=== PATIENT | male | born 1945 | race Caucasian/White ===

== ENCOUNTER 2018-08-16 00:44 | Outpatient (CLI) | payer MEDICARE, BC, SELFPAY ==
[2018-08-16 15:19] LABS: Abs Immature Grans 0.01 k/cumm (0.0-0.09); Absolute Basophil Count 0.04 k/cumm (0.0-0.2); Absolute Eosinophil Count 0.21 k/cumm (0.0-0.7); Absolute Lymphocyte Count 2.71 k/cumm (1.2-3.4); Absolute Monocyte Count 0.72 k/cumm (0.11-0.7); Absolute Neutrophil Count 6.07 k/cumm (1.2-6.7); Basophils % 0.4; Eosinophils % 2.2; HCT 35.8 % (40.0-50.0); HGB 12.2 g/dL (13.5-17.5); Immature Grans % 0.1; Lymphocytes % 27.8; Mean Corp. HGB Concentration 34.1 g/dL (32.0-36.0); Mean Corpuscular Hemoglobin 31.2 pg (27.0-33.0); Mean Corpuscular Volume 91.6 fL (80-95); Mean Platelet Volume 8.7 fL (8.0-11.0); Monocytes % 7.4; Neutrophils % 62.1; Platelet Count 292 x1000/uL (130-400); RBC 3.91 m/cumm (4.50-6.00); RBC Distribution Width 14.6 % (11.8-14.1); White Blood Cell Count 9.76 k/cumm (4.4-10.8)
[2018-08-16 15:27] LABS: CREATININE 1.17 mg/dL (0.70-1.30)
[2018-08-16] MEDS: Omnipaque 350 MG/ML 100 ML BTL IJ (16:25)
--- NOTE | 2018-08-16 16:26 | DI.CT_ITS ---
SYMPTOM/DIAGNOSIS: HEMOPTYSIS, R04.[address]: The study was carried out with an intravenous administration of 70cc's of Omnipaque 350. There are small regions of atelectasis or scarring involving the lung bases. There is no evidence of a localized infiltrate or mass. There is no pleural effusion. The heart is not enlarged. There is no evidence of an aortic aneurysm. There is no evidence of pulmonary embolic disease. No acute bony abnormality is identified. SUMMARY: No evidence of pulmonary emboli. There are regions of apparent bibasilar scarring or atelectasis. No definite mass is seen.
== END 2018-08-16 01:04 ==
PROVIDERS: PCP Emergency Medicine; Visit Provider Emergency Medicine
DX: F32.9 Major depressive disorder, single episode, unspecified (principal); D72.829 Elevated white blood cell count, unspecified; R04.2 Hemoptysis; J98.4 Other disorders of lung
CPT/HCPCS: 36415; 71260; 82565; 85025; J3490

== ENCOUNTER 2019-12-04 09:51 | Emergency (ER) | payer MEDICARE, BC, SELFPAY ==
[2019-12-04 09:55] VITALS: BP 153/52; PULSE 81; RESP 16; TEMP 36.7; O2SAT 97
--- NOTE | 2019-12-04 10:04 | W.ED.GENAD ---
Discharge Plan Disposition Patient Disposition: HOME Condition: Good Discharge Details Chief Complaint: Orthopedic Clinical Impression: Sprain of right shoulder, Fall Primary Care Provider: Demetris Multani ED Provider: Mathew Cruz Home Meds and New Rx's Prescriptions: New lidocaine [Lidoderm] 1 PATCH patch 1 patch Topical Q24H Qty: 4 RF: 0 No Action fluticasone propion-salmeterol [Advair Diskus] 1 EACH blister with device 1 puff Inhalation BID Qty: 2 RF: 12 sertraline 50 mg tablet 50 mg PO DAILY Qty: 90 RF: 3 clopidogrel 75 mg tablet 75 mg PO DAILY Qty: 90 RF: 3 atorvastatin 40 mg tablet 40 mg PO DAILY Qty: 90 RF: 3 pantoprazole 40 mg tablet,delayed release (DR/EC) 40 mg PO DAILY Qty: 90 RF: 2 aspirin [Aspir-81] 81 MG tablet,delayed release (DR/EC) 2 tab PO DAILY RF: 0 Discharge Instructions Instructions: Shoulder Sprain (ED) Additional Instructions: At this time there is no evidence of fracture in your shoulder or bleed in your head or fracture in your spine. I do suspect that you have notably irritated your right rotator cuff and caused some mild bursitis as well. Often these heal well with rest. Please use the Lidoderm patches as directed, if your insurance does not cover them, you can get [id number] Lidoderm patches for slightly lower concentration but very similar efficacy. You can take 500 to 1000 mg of Tylenol every 6 hours as well for the pain. Please use the sling for support, however it is imperative that you move your arm in all directions 5-6 times per day while using the sling to help prevent frozen shoulder syndrome. Please follow-up closely with your primary care provider for reassessment. If your symptoms do not improve in the next 4 to 6 weeks you may require follow-up with an funeral pre arrangement specialist. If you notice any worsening of your symptoms, or any new symptoms such as vomiting, diarrhea, fever, chills, shortness of breath, chest pain, numbness, weakness, or fainting , please return immediately to the emergency department for reevaluation. Please follow up with your primary care provider as soon as possible for reassessment and reevaluation. As always, it was a pleasure participating in your medical care today. Referrals: Demetris Multani, DO [Primary Care Provider] - Medical Decision Making This is a pleasant 74-year-old male with a past medical history of CVA in the past currently on aspirin and Plavix who presents today for right shoulder pain after fall. Last night he fell slipped and hit his right shoulder. He has had pain since then, he has not taken anything to help relieve the pain. He denies any radiation to his chest arm neck or head. He states that he may have hit his head, but denies any loss of consciousness. He denies any focal numbness tingling or weakness. He states that the slip was mechanical. He did not pass out. Exam demonstrates reproducible tenderness over the right shoulder at the proximal humerus. No significant pain over the AC joint. Pain is notably present with all movements in particular flexion, internal and external rotation. He has no midline cervical thoracic pain, no signs of trauma to the head. Due to the patient's age, and his blood thinner use we will get a CT scan of the head neck, additionally we will get an x-ray of the right shoulder. Will place Lidoderm patch and give Tylenol. Suspect right shoulder bursitis, sprain, less likely fracture. 11:12 AM X-ray results have returned from Dr. Wren. Per Dr. Wren there is no evidence of acute process for the head neck or right shoulder. There is degeneration of the joints in the shoulder, as well as degenerations of the cervical spine. No other significant abnormality. Patient is feeling better at this time. I do feel he is bursitis in his right shoulder secondary to the trauma, in conjunction with mild rotator cuff injury. We will give him a shoulder sling, however I had a long discussion with him about my apprehension about this and the importance of continued movement to prevent adhesive capsulitis. We will recommend continued Tylenol for pain control as well as Lidoderm patches. I discussed with him that if symptoms do not improve over the next few weeks with conservative management he may require follow-up with orthopedics. Recommend close follow-up with his PCP prior to this for reassessment. Discussed red flags for which to return. I have extensively reviewed the treatment plan and discharge instructions with the patient. I have addressed all patient concerns at this time. The patient was made aware of what symptoms to monitor for that would warrant a return to the emergency department. Discussed the plan with the patient, they demonstrate verbal understanding and agreement with our assessment and plan at this time. HPI General Date/Time Provider Initiated Documentation: 12/04/19 10:01. HPI Narrative: This is a very pleasant 74-year-old male with a past medical history of previous CVA, GERD, COPD, currently on aspirin and Plavix who presents today for evaluation of fall. Last night he was out walking, slipped on the ice, fell and landed on his right shoulder. He has had pain since then. He has not taken anything to help with the pain. He states he may have hit his head during the fall, but denies any loss of consciousness. He denies any current headache or neck pain. He denies any numbness tingling or weakness. Pain in his right shoulder is his only current complaint, pain is made worse with movement in all directions. No other complaints, no radiation down the arm. No chest pain or shortness of breath. Related Data Home Medications Medication Instructions Recorded Confirmed aspirin [Aspir-81] 2 tab PO DAILY 12/06/15 12/04/19 fluticasone propion-salmeterol 1 puff INHALATION BID #2 disk 03/04/18 12/04/19 [Advair 250/50 Diskus] sertraline 50 mg tablet 50 mg PO DAILY #90 tab-cap 03/22/19 12/04/19 clopidogrel 75 mg tablet 75 mg PO DAILY #90 tab-cap 06/09/19 12/04/19 atorvastatin 40 mg tablet 40 mg PO DAILY #90 tab-cap 07/19/19 12/04/19 pantoprazole 40 mg tablet,delayed 40 mg PO DAILY #90 tab 09/11/19 12/04/19 release lidocaine [Lidoderm] 1 patch TOPICAL Q24H #4 patch 12/04/19 Previous Rx's Medication Instructions Recorded fluticasone propion-salmeterol 1 puff INHALATION BID #2 disk 03/04/18 [Advair 250/50 Diskus] sertraline 50 mg tablet 50 mg PO DAILY #90 tab-cap 03/22/19 clopidogrel 75 mg tablet 75 mg PO DAILY #90 tab-cap 06/09/19 atorvastatin 40 mg tablet 40 mg PO DAILY #90 tab-cap 07/19/19 pantoprazole 40 mg tablet,delayed 40 mg PO DAILY #90 tab 09/11/19 release lidocaine [Lidoderm] 1 patch TOPICAL Q24H #4 patch 12/04/19 Allergies Allergy/AdvReac Type Severity Reaction Status Date / Time cyclobenzaprine Allergy Mild SKIN RASH Verified 12/04/19 10:04 hydrocodone Allergy SKIN RASH Verified 12/04/19 10:04 Aocobhe-Qcz-Hnb Reductase AdvReac Mild Verified 12/04/19 10:04 Inhibitor doxycycline AdvReac FACIAL Verified 12/04/19 10:04 REDNESS meperidine AdvReac HANGOVER Verified 12/04/19 10:04 FEELING General Stated Complaint: Orthopedic GOOD: 3 Review of Systems All systems reviewed & are unremarkable except as noted in HPI and below PFSH Medical History (Updated 12/04/19 @ 11:14 by Mathew Cruz DO) Anxiety about health (Acute 02/27/15) CAD (coronary artery disease) Carotid stenosis, bilateral (Acute) 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 Idiopathic. Check CBC at 6 mo intervals Right inguinal hernia (Acute 02/20/14) Right rotator cuff tear (Acute 05/02/14) surgery Smoker Smoker (Acute) Tubular adenoma of colon (Acute 09/17/17) Vertebral artery stenosis (Acute) Surgical History (Updated 03/13/19 @ 11:46 by Alejandro Zhang) Appendectomy (~1954) Arthroplasty of knee LEFT Carotid endarterectomy 2016 Colonoscopy - MAC (09/17/17) DR. CHUCK JIMENEZ; TUBULAR ADENOMA History of back surgery (Acute 05/02/14) Oophrectomy, Right Family History Mother Personal history of malignant neoplasm Father Heart disease Sister Personal history of malignant neoplasm Brother Heart disease Grandfather No problems noted. Grandfather Acute ill-defined cerebrovascular disease Grandmother No problems noted. Grandmother No problems noted. Social History Smoking/Tobacco Use Status: Former Tobacco Use Alcohol Intake: former Drug use: Never Details: quit smoking 2019 Do you feel safe at home: Yes Do you feel safe in your relationship?: Yes Exam Narrative Exam Narrative: 1.Const: Well-nourished, Well-developed, appearing stated age 2.Eyes: PERRL, no conjunctival injection, and symmetrical lids. 3.ENT: Atraumatic external nose and ears. Moist MM. Neck: Symmetric, trachea midline, No thyromegaly. There is no evidence of raccoon eyes, lynch sign, CSF rhinorrhea, mastoid tenderness, cranial crepitus, hemotympanum, exophthalmos, or hyphema. Patient demonstrates intact dentition with no signs of tooth avulsion or fracture, no signs of jaw deformity, no evidence of a LeFort's fracture, with an intact palate, nose and orbital region. There is no evidence of a nasal septal hematoma. No proptosis. Jaw closes symmetrically. Airway is clear. 4.CVS: +S1/S2, No murmurs or gallops. Peripheral pulses 2+ and equal in all extremities. Brisk capillary refill in all extremities. 5.RESP: Unlabored respiratory effort. Clear to auscultation bilaterally. No wheezes rales or rhonchi 6.GI: Soft, Nontender/Nondistended, No hepatosplenomegaly. No guarding or rebound. 7.MSK: Normocephalic, Extremities w/o deformity. No cyanosis or clubbing. Patient's right shoulder demonstrates mild reproducible tenderness over the proximal humerus, no significant tenderness over the AC joint. Pain is made worse particularly with internal and external rotation as well as flexion extension and abduction. Normal movement at the elbow and wrist, no weakness, neurovascular exam normal. No evidence of deficits or significant abnormality. Strength is intact, but slightly limited secondary to pain. No midline cervical thoracic or lumbar spine tenderness. 8.Skin: Warm, Dry. No rashes or lesions. 9.Neuro: protection officer II-XII grossly intact. Sensation grossly intact, no focal neurologic deficits. 10.Psych: (AAO) x3. Appropriate mood and affect Course Vital Signs Vital signs: Vital Signs Temperature 36.7 C 12/04/19 09:55 Pulse 81 12/04/19 09:55 Respiratory Rate 16 12/04/19 09:55 Blood Pressure 153/52 H 02/24/20 09:55 Pulse Oximetry 97 02/24/20 09:55 Temperature 36.7 C 12/04/19 09:55 Temperature Source Skin 12/04/19 09:55 Pulse 81 12/04/19 09:55 Respiratory Rate 16 12/04/19 09:55 Blood Pressure 153/52 H 12/04/19 09:55 Blood Pressure Position Sitting 12/04/19 09:55 Pulse Oximetry 97 12/04/19 09:55 Oxygen Delivery Method Room Air 12/04/19 09:55 Oxygen Flow Rate 0 12/04/19 09:55 Pain Level 9 12/04/19 09:55
[2019-12-04] MEDS: Acetaminophen 500 MG TAB 1000 MG PO (10:31)
[2019-12-04] MEDS: Lidocaine 5% Patch 1 PATCH TP (10:31)
--- NOTE | 2019-12-04 10:50 | DI.CT_ITS ---
EXAM: CT HEAD CERVICAL SPINE WO CLINICAL HISTORY: fell, hit head, on asa and plavix TECHNIQUE: CT examination of the cervical spine was performed utilizing multi slice acquisition and multiplanar reconstruction. COMPARISON: HEAD WITHOUT CONTRAST from 07/24/2016 FINDINGS: There is a mild torticollis to the left. There are severe degenerative changes of the cervical spin e, no evidence of acute fracture or dislocation. Unremarkable appearance of tracheal laryngeal struc tures as visualized. Clear lung apices noted. No cervical mass or adenopathy. Noncontrast cranial CT was performed. There is moderate generalized cerebral atrophy. No evidence o f acute intracranial hemorrhage, mass effect, or midline shift. Mild patchy areas of decreased atten uation noted in periventricular white matter consistent with microvascular ischemic change. The orbi duke and temporal bone structures appear intact. Mastoid air cells and paranasal sinuses are well aer ated as visualized. IMPRESSION: No evidence of acute intracranial injury. No evidence of acute cervical spine fracture or dislocation.
--- NOTE | 2019-12-04 11:00 | DI.RAD_ITS ---
EXAM: XR SHOULDER RT COMPLETE 2+V CLINICAL HISTORY: fell, right shoulder pain over prox hum. TECHNIQUE: COMPARISON: RIGHT SHOULDER COMPLETE from 04/03/2014 FINDINGS: Five views were obtained. There are mild degenerative changes of the acromioclavicular and glenohume ral joints. There is no evidence of acute fracture or dislocation. IMPRESSION:
[2019-12-04 11:25] VITALS: BP 138/67; PULSE 69; RESP 18; TEMP 36.6; O2SAT 98
[2019-12-04 11:28] VITALS: BP 153/52; PULSE 81; RESP 18; TEMP 36.6; O2SAT 98
== END 2019-12-04 11:29 | disposition home or self-care (01) ==
PROVIDERS: Emergency Provider Student in an Organized Health Care Education/Training Program; PCP Emergency Medicine
DX: S43.491A Other sprain of right shoulder joint, initial encounter (principal); S09.90XA Unspecified injury of head, initial encounter; W00.0XXA Fall on same level due to ice and snow, initial encounter; Z79.02 Long term (current) use of antithrombotics/antiplatelets; J44.9 Chronic obstructive pulmonary disease, unspecified; Z87.891 Personal history of nicotine dependence
CPT/HCPCS: 99284; 70450; 72125; 73030; L3650

== ENCOUNTER 2020-02-23 12:05 | Emergency (ER) | payer MEDICARE, BC, SELFPAY ==
[2020-02-23 12:11] VITALS: BP 137/86; PULSE 93; TEMP 36.8; O2SAT 98
--- NOTE | 2020-02-23 12:30 | DI.RAD_ITS ---
EXAM: XR CERVICAL SP MORIN TRAUMA 2-3V CLINICAL HISTORY: neck pain TECHNIQUE: COMPARISON: CR CERV SP.WITH OBL OR FLEX/EXT from 06/15/2012 FINDINGS: Five views were obtained. C7 is not ideally visualized but appears intact as seen on AP and swimmer' s views. There is moderate hypertrophic degenerative change involving the facet joints and endplates of the lower cervical spine. Disc space narrowing is noted at C3-4 and at C5-6. No evidence of acu te fracture. IMPRESSION:
--- NOTE | 2020-02-23 12:30 | DI.RAD_ITS ---
EXAM: XR SHOULDER RT COMPLETE 2+V CLINICAL HISTORY: Shoulder pain fall 2 months ago TECHNIQUE: COMPARISON: CR XR SHOULDER RT COMPLETE 2+V from 12/04/2019 FINDINGS: Five views were obtained. There are mild degenerative changes at the acromioclavicular and glenohume ral joints. On the axillary view, there is a lucency projected over the coracoid which appears to re present a mildly displaced fracture. Please correlate clinically. No additional fracture seen. IMPRESSION:
--- NOTE | 2020-02-23 12:45 | W.ED.GENAD ---
Discharge Plan Disposition Patient Disposition: HOME Condition: Stable Discharge Details Chief Complaint: Orthopedic Clinical Impression: Muscle spasm of shoulder region, Chronic pain in right shoulder Primary Care Provider: Demetris Multani ED Provider: Racheal Stewart Home Meds and New Rx's Prescriptions: New methocarbamol 500 mg tablet 500 mg PO TID PRN (Reason: spasm) 3 Days Qty: 12 RF: 0 lidocaine 5 % adhesive patch,medicated 1 patch TP DAILY PRN (Reason: spasm) 2 Days Qty: 2 RF: 0 No Action sertraline 50 mg tablet 50 mg PO DAILY Qty: 90 RF: 3 clopidogrel 75 mg tablet 75 mg PO DAILY Qty: 90 RF: 3 atorvastatin 40 mg tablet 40 mg PO DAILY Qty: 90 RF: 3 pantoprazole 40 mg tablet,delayed release (DR/EC) 40 mg PO DAILY Qty: 90 RF: 2 aspirin [Aspir-81] 81 MG tablet,delayed release (DR/EC) 2 tab PO DAILY RF: 0 budesonide-formoterol [Symbicort] 160-4.5 mcg/actuation HFA aerosol inhaler 2 puff IH BID PRNRF: 0 Discharge Instructions Instructions: Shoulder Pain (ED) Additional Instructions: Follow up with primary care provider in 3-5 days. Return to ED sooner if any worsening or concerns. Increase oral fluids. Take medications as prescribed. Rest ice compression elevation. You may take Tylenol as needed for pain. Follow-up with orthopedics for possible coracoid process fracture Referrals: Demetris Multani, [Primary Care Provider] - Neeraj Saxena MD [ [facility] STAFF PHYSICIAN] - Medical Decision Making 74-year-old male presents with chronic right shoulder pain associated with lateral neck tenderness after a fall in November. He has decreased lateral abduction tenderness with external rotation. No recent injuries. He states that the pain keeps him up at night. He is rating it moderate in severity. Describes as dull pain. Pain radiates up into his neck. He states he is unable to get in with his primary care provider and no longer is going to physical therapy due to the coronavirus. He is also asked requesting Adelina testing at this time. He denies any fever, cough or recent travel At this time appears to be chronic pain associated with musculoskeletal spasm. It is chronic in nature from a fall in November. Patient is allergic to Flexeril so we will not give that. He reportedly told social staff worker that the only thing that works for his pain is Percocet. Lidocaine patch transdermal ordered. Further injuries. Questionable coracoid process fracture on x-ray patient is tender with palpation to the anterior medial humeral head. We will give follow-up info to orthopedics. Patient given lidocaine patch prescription and methocarbamol tablet prescription. Patient discharged with home care, discharged to the COVID testing tent as he has an appointment at [facility], patient requesting Covid testing. Differential diagnosis includes possible coracoid process fracture, shoulder sprain, degenerative changes, muscle spasms. HPI General Mode of arrival: ambulatory. Date/Time Provider Initiated Documentation: 02/23/20 12:07. Limitations to Documentation: no limitations. Information obtained by: patient. History of Present Illness Patient neck. HPI Narrative: 74-year-old male presents with chronic right shoulder pain associated with lateral neck tenderness after a fall in November. He has decreased lateral abduction tenderness with external rotation. No recent injuries. He states that the pain keeps him up at night. He is rating it moderate in severity. Describes as dull pain. Pain radiates up into his neck. He states he is unable to get in with his primary care provider and no longer is going to physical therapy due to the coronavirus. He is also asked requesting Adelina testing at this time. He denies any fever, cough or recent travel. Related Data Home Medications Medication Instructions Recorded Confirmed aspirin [Aspir-81] 2 tab PO DAILY 12/06/15 02/23/20 sertraline 50 mg tablet 50 mg PO DAILY #90 tab-cap 03/22/19 02/23/20 clopidogrel 75 mg tablet 75 mg PO DAILY #90 tab-cap 06/09/19 02/23/20 atorvastatin 40 mg tablet 40 mg PO DAILY #90 tab-cap 07/19/19 02/23/20 pantoprazole 40 mg tablet,delayed 40 mg PO DAILY #90 tab 09/11/19 02/23/20 release budesonide-formoterol [Symbicort] 2 puff IH BID PRN 02/23/20 02/23/20 lidocaine 1 patch TP DAILY PRN 2 Days #2 each 02/23/20 methocarbamol 500 mg PO TID PRN 3 Days #12 tab 02/23/20 Previous Rx's Medication Instructions Recorded sertraline 50 mg tablet 50 mg PO DAILY #90 tab-cap 03/22/19 clopidogrel 75 mg tablet 75 mg PO DAILY #90 tab-cap 06/09/19 atorvastatin 40 mg tablet 40 mg PO DAILY #90 tab-cap 07/19/19 pantoprazole 40 mg tablet,delayed 40 mg PO DAILY #90 tab 09/11/19 release lidocaine 1 patch TP DAILY PRN 2 Days #2 each 02/23/20 methocarbamol 500 mg PO TID PRN 3 Days #12 tab 02/23/20 Allergies Allergy/AdvReac Type Severity Reaction Status Date / Time cyclobenzaprine Allergy Mild SKIN RASH Verified 02/23/20 12:19 hydrocodone Allergy SKIN RASH Verified 02/23/20 12:19 Ptovdui-Vyq-Bif Reductase AdvReac Mild Verified 02/23/20 12:19 Inhibitor doxycycline AdvReac FACIAL Verified 02/23/20 12:19 REDNESS meperidine AdvReac HANGOVER Verified 02/23/20 12:19 FEELING General Stated Complaint: Orthopedic GOOD: 4 Review of Systems Narrative: Constitutional: Negative for weight loss, alert and oriented, well groomed, normal body habitus, appears comfortable. HEENT: Denies trauma, headaches, blurry vision, nasal discharge, sore throat, trouble swallowing. Chest: Denies chest pain, palpitations, irregular rhythm, hypertension. Respiratory: Denies Shortness of breath, cough, hemoptysis. GI: Denies abdominal pain, nausea, vomiting, diarrhea, constipation. : Denies dysuria, hematuria, flank pain, rectal bleeding. Musculoskeletal: Right shoulder pain and associated neck pain after a fall in November. Neuro: Denies dizziness, blurry vision, weakness, syncope, headache or facial numbness. Hematologic: Denies easy bruising, intolerance to heat or cold, hair loss. 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 Idiopathic. Check CBC at 6 mo intervals Right inguinal hernia (Acute 02/20/14) Right rotator cuff tear (Acute 05/02/14) surgery Smoker Smoker (Acute) Tubular adenoma of colon (Acute 09/17/17) Vertebral artery stenosis (Acute) Surgical History Appendectomy (~1954) Arthroplasty of knee LEFT Carotid endarterectomy 2016 Colonoscopy - MAC (09/17/17) DR. CHUCK JIMENEZ; TUBULAR ADENOMA History of back surgery (Acute 05/02/14) Oophrectomy, Right Family History Mother Personal history of malignant neoplasm Father Heart disease Sister Personal history of malignant neoplasm Brother Heart disease Grandfather No problems noted. Grandfather Acute ill-defined cerebrovascular disease Grandmother No problems noted. Grandmother No problems noted. Social History Smoking/Tobacco Use Status: Former Tobacco Use Alcohol Intake: former Drug use: Never Details: quit smoking 2018. Chews tobacco occasionally. Do you feel safe at home: Yes Do you feel safe in your relationship?: Yes Exam Narrative Exam Narrative: Constitutional: Alert and oriented x3. Appears stated age. Normal body habitus. Head: Normocephalic, no trauma. Eyes: Pupils PERRLA, Red reflex noted, EOM's intact. Eyelids symmetrical without lesions, discharge, or swelling. ENT: Bilateral TM's WNL, External ear normal to inspection, no mastoid TTP, swelling, or erythema, Nasal turbinates WNL, no nasal discharge. Normal dentition, Posterior pharynx WNL, no exudate. Chest: RRR, Normal S1, S2, distal pulses intact. Resp: Lungs clear to auscultation bilaterally, no wheezes, rales, or rhonchi. Musculoskeletal: Normal gait, 5/5 strength to all four extremities. Paraspinous tenderness noted to C-spine radiating up into her occipital scalp. Pain with external and internal rotation increased pain with abduction. Is able to lift arm approximately 85 degrees. No pinpoint tenderness or crepitus noted. Elbow is within normal limits. Distal radial pulses intact cap refill less than 3 seconds. Skin: No suspicious rashes or lesions. Capillary refill less than 2 sec. Neurologic: Cranial nerves II-XII intact. Alert and oriented x 3. DTR's intact. Hematologic/Lymphatic: No ecchymosis, no lymphadenopathy. Course Vital Signs Vital signs: Vital Signs Temperature 36.8 C 02/23/20 12:11 Pulse 93 H 02/23/20 12:11 Blood Pressure 137/86 02/23/20 12:11 Pulse Oximetry 98 02/23/20 12:11 Temperature 36.8 C 02/23/20 12:11 Temperature Source Skin 02/23/20 12:11 Pulse 93 H 02/23/20 12:11 Respiratory Effort Non-Labored 02/23/20 12:19 Blood Pressure 137/86 02/23/20 12:11 Blood Pressure Position Sitting 02/23/20 12:11 Pulse Oximetry 98 02/23/20 12:11 Oxygen Delivery Method Room Air 02/23/20 12:11 Oxygen Flow Rate 0 02/23/20 12:11 Pain Level 5 02/23/20 12:11 Comment 02/23/20 12:11
[2020-02-23] MEDS: Lidocaine 5% Patch 1 PATCH TP (12:58)
[2020-02-23] MEDS: Methocarbamol 500 MG TAB PO (13:01)
== END 2020-02-23 13:47 | disposition home or self-care (01) ==
PROVIDERS: Emergency Provider Registered Nurse Emergency; PCP Emergency Medicine
DX: M62.838 Other muscle spasm (principal); M25.511 Pain in right shoulder; G89.29 Other chronic pain; W19.XXXA Unspecified fall, initial encounter; J44.9 Chronic obstructive pulmonary disease, unspecified; Z87.891 Personal history of nicotine dependence
CPT/HCPCS: 99284; U0003; 72040; 73030

== ENCOUNTER 2020-02-23 13:19 | Outpatient (CLI) | payer MEDICARE, BC, SELFPAY ==
[2020-02-24 14:34] LABS: COVID-19 RT-PCR Result NEGATIVE (Negative)
== END 2020-02-23 13:39 ==
PROVIDERS: PCP Emergency Medicine; Visit Provider Registered Nurse Emergency
DX: Z03.818 Encounter for observation for suspected exposure to other biological agents ruled out (principal)
CPT/HCPCS: 87449; U0003

== ENCOUNTER → 2020-02-28 10:31 | Outpatient (BNVA) | payer MEDICARE, BC, SELFPAY | PROVIDERS: PCP Emergency Medicine; Referring Provider Nurse Practitioner; Visit Provider Student in an Organized Health Care Education/Training Program | DX: S46.911A Strain of unspecified muscle, fascia and tendon at shoulder and upper arm level, right arm, initial encounter (principal); W17.89XA Other fall from one level to another, initial encounter; M75.21 Bicipital tendinitis, right shoulder; G54.2 Cervical root disorders, not elsewhere classified; M62.838 Other muscle spasm; M75.41 Impingement syndrome of right shoulder; J44.9 Chronic obstructive pulmonary disease, unspecified; Z87.891 Personal history of nicotine dependence | CPT/HCPCS: 99204; 99215 ==

== ENCOUNTER 2020-03-07 02:30 | Outpatient (CLI) | payer MEDICARE, BC, SELFPAY ==
--- NOTE | 2020-03-07 13:51 | DI.MRI_ITS ---
EXAM: MR UPPER JOINT RT WO CLINICAL HISTORY: Traumatic rotator cuff tear,IMPINGEMENT SYNDROME,TENDONITIS,M75.41,M75.21,. TECHNIQUE: Multiplanar multisequence MRI was performed. COMPARISON: Plain films dated 23 Feb 2020. FINDINGS: The exam is limited by patient motion. The patient was in pain and could not tolerate the entire exa mination. The sagittal sequences could not be performed. Bones: There is no fracture or contusion pattern. The acromioclavicular joint shows mild inferior spurring. There is spurring at the tip of the acromion.. There is a small joint effusion and fluid in the sub c oracoid bursa.. Rotator Cuff: There is a full thickness tear of the supraspinatus tendon with retraction nearly to the level of the AC joint. There is mild muscle atrophy. There is a full-thickness tear of the subscapularis tendon w ith retraction to the level of the glenoid. The infraspinatus and teres minor tendons are intact. Labrum and biceps anchor: The biceps tendon is normally located. The anchor is not well seen. The labrum is not well evaluated due to motion. IMPRESSION: Limited exam due to lack of sagittal sequences and patient motion. Full-thickness tears with retracti on of both supraspinatus and infraspinatus tendons.. DATA REPOSITORY:
== END 2020-03-07 02:50 ==
PROVIDERS: PCP Emergency Medicine; Visit Provider Student in an Organized Health Care Education/Training Program
DX: M75.101 Unspecified rotator cuff tear or rupture of right shoulder, not specified as traumatic (principal); M75.21 Bicipital tendinitis, right shoulder; M75.41 Impingement syndrome of right shoulder; M25.411 Effusion, right shoulder
CPT/HCPCS: 73221

== ENCOUNTER → 2020-03-13 13:49 | Outpatient (BNVA) | payer MEDICARE, BC, SELFPAY | PROVIDERS: PCP Emergency Medicine; Referring Provider Emergency Medicine; Visit Provider Student in an Organized Health Care Education/Training Program | DX: M75.41 Impingement syndrome of right shoulder (principal); G54.2 Cervical root disorders, not elsewhere classified; M75.21 Bicipital tendinitis, right shoulder; M75.101 Unspecified rotator cuff tear or rupture of right shoulder, not specified as traumatic; M75.51 Bursitis of right shoulder | CPT/HCPCS: 99214 ==

== ENCOUNTER 2020-05-03 09:33 | Emergency (ER) | payer MEDICARE, BC, SELFPAY ==
[2020-05-03 09:38] VITALS: BP 122/64; PULSE 50; RESP 16; TEMP 36.9; O2SAT 96
--- NOTE | 2020-05-03 09:45 | W.ED.GENAD ---
Discharge Plan Disposition Patient Disposition: HOME Condition: Stable Discharge Details Chief Complaint: Laceration Clinical Impression: Laceration of left thumb Primary Care Provider: Demetris Multani ED Provider: Racheal Stewart Home Meds and New Rx's Prescriptions: New cephalexin 500 mg tablet 500 mg PO BID 3 Days Qty: 6 RF: 0 Continued clopidogrel 75 mg tablet 75 mg PO DAILY Qty: 90 RF: 3 atorvastatin 40 mg tablet 40 mg PO DAILY Qty: 90 RF: 3 pantoprazole 40 mg tablet,delayed release (DR/EC) 40 mg PO DAILY Qty: 90 RF: 2 sertraline 50 mg tablet 50 mg PO DAILY Qty: 90 RF: 3 aspirin [Aspir-81] 81 MG tablet,delayed release (DR/EC) 2 tab PO DAILY RF: 0 budesonide-formoterol [Symbicort] 160-4.5 mcg/actuation HFA aerosol inhaler 2 puff IH BID PRNRF: 0 Discharge Instructions Instructions: Laceration (ED) Additional Instructions: Have sutures removed in 7 to 10 days. Return sooner for any signs of infection including redness, swelling, red streaks, drainage increased pain or any concerns. You may return here to have sutures removed. 6 sutures were placed. Allow wound to air dry at least 1 to 2 hours every day. No soaking may wash under running soap and water. Discharge Data Discharge Date/Time-TO BE ENTERED AT DEPARTURE: 05/03/20 11:58 Medical Decision Making 09 47: Imaging ordered to rule out fracture or foreign body, will do a left thumb digital block for anesthesia wound care ordered, patient is up-to-date on his tetanus shot. No complaints of pain at this time. EXAM: XR THUMB LT EXAM DATE/TIME: CLINICAL HISTORY: Laceration R/O fx, foreign body. TECHNIQUE: 2D digital imaging was performed. COMPARISON: None. FINDINGS: BONES: No acute fracture is present. No bony destructive lesion is seen. JOINTS: No dislocation present. SOFT TISSUE: The patient's thumb is wrapped in gauze. This obscures the underlying tissues. No radiopaque foreign bodies are seen. IMPRESSION: No evidence of acute fracture, dislocation, or subluxation. No radiopaque foreign body. Laceration repaired as noted in procedure note above. Patient tolerated well. Discussed home care and strict return instructions discussed including watching for signs of infection including increased redness, swelling drainage. Verbalized understanding. Discharged home with dressing in place, remained hemodynamically stable throughout stay. This text was generated using Fotofeedback dictation system, please disregard any oddities of phrase or misspellings. HPI General Mode of arrival: ambulatory. Date/Time Provider Initiated Documentation: 05/03/20 09:39. Limitations to Documentation: no limitations. Information obtained by: patient. HPI Narrative: 74-year-old male presents to the ED with a chief complaint of left thumb laceration which occurred just prior to arrival while cleaning a diesel fan. Patient is on Plavix. Bleeding is controlled upon arrival he does have full range of motion of his thumb. Last tetanus was 2017. He has no other injuries or complaints at this time. On initial exam there is 3 lacerations. Related Data Home Medications Medication Instructions Recorded Confirmed aspirin [Aspir-81] 2 tab PO DAILY 12/06/15 05/03/20 clopidogrel 75 mg tablet 75 mg PO DAILY #90 tab-cap 06/09/19 05/03/20 atorvastatin 40 mg tablet 40 mg PO DAILY #90 tab-cap 07/19/19 05/03/20 pantoprazole 40 mg tablet,delayed 40 mg PO DAILY #90 tab 09/11/19 05/03/20 release budesonide-formoterol [Symbicort] 2 puff IH BID PRN 02/23/20 05/03/20 sertraline 50 mg tablet 50 mg PO DAILY #90 tab-cap 03/25/20 05/03/20 cephalexin 500 mg PO BID 3 Days #6 tab 05/03/20 Previous Rx's Medication Instructions Recorded clopidogrel 75 mg tablet 75 mg PO DAILY #90 tab-cap 06/09/19 atorvastatin 40 mg tablet 40 mg PO DAILY #90 tab-cap 07/19/19 pantoprazole 40 mg tablet,delayed 40 mg PO DAILY #90 tab 09/11/19 release sertraline 50 mg tablet 50 mg PO DAILY #90 tab-cap 03/25/20 cephalexin 500 mg PO BID 3 Days #6 tab 05/03/20 Allergies Allergy/AdvReac Type Severity Reaction Status Date / Time cyclobenzaprine Allergy Mild SKIN RASH Verified 05/03/20 09:43 hydrocodone Allergy SKIN RASH Verified 05/03/20 09:43 Xkuhwae-Mah-Lbv Reductase AdvReac Mild Verified 05/03/20 09:43 Inhibitor doxycycline AdvReac FACIAL Verified 05/03/20 09:43 REDNESS meperidine AdvReac HANGOVER Verified 05/03/20 09:43 FEELING General Stated Complaint: Laceration GOOD: 4 Review of Systems All systems reviewed & are unremarkable except as noted in HPI and below Cardiovascular Cardiovascular: Reports system reviewed and no additional complaints, except as documented and Denies chest pain Respiratory Respiratory: Reports system reviewed and no additional complaints, except as documented, Denies chest congestion and Denies cough Integumentary/Breasts Skin/Breast: Reports wounds (Lacerations left thumb) [facility] Medical History Anxiety about health (Acute 02/27/15) CAD (coronary artery disease) Carotid stenosis, bilateral (Acute) 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 Idiopathic. Check CBC at 6 mo intervals Right inguinal hernia (Acute 02/20/14) Right rotator cuff tear (Acute 05/02/14) Smoker Smoker (Acute) Tubular adenoma of colon (Acute 09/17/17) Vertebral artery stenosis (Acute) Surgical History Appendectomy (~1954) Arthroplasty of knee LEFT Carotid endarterectomy 2016 Colonoscopy - MAC (09/17/17) DR. CHUCK JIMENEZ; TUBULAR ADENOMA History of back surgery (Acute 05/02/14) Oophrectomy, Right Social History Smoking/Tobacco Use Status: Former Tobacco Use Alcohol Intake: former Drug use: Never Substance use type: does not use Details: quit smoking 2019. Chews tobacco occasionally. Current gender identity: male Do you feel safe at home: Yes Do you feel safe in your relationship?: Yes Exam Const General: healthy appearing, comfortable, no acute distress and well developed Nutritional Appearance: average body habitus and well nourished Orientation: alert, awake and oriented x3 Resp Effort & Inspection: normal respiratory effort and able to speak in complete sentences Cardio Rate: regular rate Rhythm: regular rhythm Heart Sounds: S1 normal and S2 normal Extrem Hand/finger images: 1. Laceration #1: Superficial 0.5 cm laceration noted to the base of the nailbed 2. Laceration #2: Avulsion noted approximately 2 cm in length irregular borders 3. Laceration #3: Linear distal medial tip Course Vital Signs Vital signs: Vital Signs Temperature 36.9 C 05/03/20 09:38 Pulse 50 L 05/03/20 09:38 Respiratory Rate 16 05/03/20 09:38 Blood Pressure 122/64 05/03/20 09:38 Pulse Oximetry 96 05/03/20 09:38 Temperature 36.9 C 05/03/20 09:38 Pulse 50 L 05/03/20 09:38 Respiratory Rate 16 05/03/20 09:38 Respiratory Effort Non-Labored 05/03/20 09:42 Blood Pressure 122/64 05/03/20 09:38 Blood Pressure Position Sitting 05/03/20 09:38 Pulse Oximetry 96 05/03/20 09:38 Oxygen Delivery Method Room Air 05/03/20 09:38 Oxygen Flow Rate 0 05/03/20 09:38 Pain Level 0 05/03/20 09:38 Procedures Laceration Laceration 1: Site: hand (Thumb Distal tip) Side (If applicable): left Size (cm): 1 Description: linear Depth: simple, single layer Local Anesthetic: other anesthetic (Digital block) Pre-repair: wound explored, irrigated extensively and deep structures intact Skin layer closed with: nylon Size (cm): 5-0 Number of sutures: 3 Technique: simple, interrupted Laceration 2: Site: hand (thumb) Side (If applicable): left Size (cm): 2 Description: irregular (Avulsion) Depth: simple, single layer Pre-repair: wound explored and irrigated extensively Skin layer closed with: nylon Size (cm): 4-0 Number of sutures: 3 (Loose) Technique: simple, interrupted Nerve Block Nerve Block 1: Time out performed: Yes Local Anesthetic: Lidocaine 1% and Bupivicaine 0.5% Amount of anesthesia used (mL): 4 Side: left Nerve Blocks: digital (Base of thumb ring block) Patient Tolerated Procedure: well and no complications Complications: none
--- NOTE | 2020-05-03 10:04 | DI.RAD_ITS ---
EXAM: XR THUMB LT EXAM DATE/TIME: CLINICAL HISTORY: Laceration R/O fx, foreign body. TECHNIQUE: 2D digital imaging was performed. COMPARISON: None. FINDINGS: BONES: No acute fracture is present. No bony destructive lesion is seen. JOINTS: No dislocation present. SOFT TISSUE: The patient's thumb is wrapped in gauze. This obscures the underlying tissues. No radi opaque foreign bodies are seen. IMPRESSION: No evidence of acute fracture, dislocation, or subluxation. No radiopaque foreign body. DATA REPOSITORY: RADIATION DOSE DELIVERED:
[2020-05-03] MEDS: Lidocaine 1% Multi-Dose 50 ML VIAL IJ (10:05)
[2020-05-03] MEDS: Bupivacaine 0.5% Pres-Free 30 ML VIAL IJ (10:05)
[2020-05-03] MEDS: Povidone-Iodine Soln. 118 ML BTL (10:19)
[2020-05-03] MEDS: Cephalexin 500 MG CAP PO (11:51)
[2020-05-03] MEDS: Cephalexin 500 MG CAP, 4 CAPS/BTL PO (11:52)
== END 2020-05-03 11:58 | disposition home or self-care (01) ==
PROVIDERS: Emergency Provider Registered Nurse Emergency; PCP Emergency Medicine
DX: S61.112A Laceration without foreign body of left thumb with damage to nail, initial encounter (principal); W31.82XA Contact with other commercial machinery, initial encounter; Z79.02 Long term (current) use of antithrombotics/antiplatelets; Z79.82 Long term (current) use of aspirin; J44.9 Chronic obstructive pulmonary disease, unspecified; Z87.891 Personal history of nicotine dependence
CPT/HCPCS: 12002; 99283; 73140; 99281

== ENCOUNTER 2020-05-24 05:44 | Inpatient (IN) | payer MEDICARE, BC, SELFPAY ==
[2020-05-24] VITALS (29 sets, daily range): BP systolic 131–162; BP diastolic 61–80; PULSE 72–104; RESP 21–37; TEMP 36.7–37.5; O2SAT 92–96
--- NOTE | 2020-05-24 05:45 | RT.EKG_ITS ---
APPROVED REPORT Exam: Resting ECG Patient Location: E HR:80 bpm ECG Measurements Heart Rate 80 AXIS CO 159 P 78 QRSd 82 QRS 73 QT 319 T 21 QTc 376 Conclusion Sinus Rhythm at 80 Normal [place] Normal Interval NONSPECIFIC ST DEPRESSION LATERAL LEADS
--- NOTE | 2020-05-24 05:47 | ED.GENADUL_ITS ---
Discharge Plan Disposition Patient Disposition: [facility] INPATIENT Condition: Poor Discharge Details Chief Complaint: SOB Clinical Impression: CAP (community acquired pneumonia) Primary Care Provider: Demetris Multani ED Provider: Thony Heredias and New Rx's Prescriptions: No Action clopidogrel 75 mg tablet 75 mg PO DAILY Qty: 90 RF: 3 atorvastatin 40 mg tablet 40 mg PO DAILY Qty: 90 RF: 3 pantoprazole 40 mg tablet,delayed release (DR/EC) 40 mg PO DAILY Qty: 90 RF: 2 sertraline 50 mg tablet 50 mg PO DAILY Qty: 90 RF: 3 aspirin [Aspir-81] 81 MG tablet,delayed release (DR/EC) 2 tab PO DAILY RF: 0 budesonide-formoterol [Symbicort] 160-4.5 mcg/actuation HFA aerosol inhaler 2 puff IH BID PRNRF: 0 Medical Decision Making Patient presenting with complaint of shortness of breath with associated low- grade fever and cough. History of COPD but stopped smoking 1 year ago. No COVID exposure that patient is aware. Is definitely tachypneic but does not appear to be in distress. Decent air exchange and no wheezing appreciated. Some rhonchi at the right base. EKG is sinus with nonspecific minimal ST depression lateral leads. Nondiagnostic. Laboratory studies and chest x-ray ordered. 06:50 - Portable CXR right lower lobe infiltrate per my review. White count elevated. Chemistries are fine other than some hypomagnesemia. Liver and kidney function normal. Bicarb normal. Troponin and BNP normal. D-dimer elevated but would expect in infectious etiology. Blood cultures ordered as well as lactic acid. Fluids started. Ceftriaxone and azithromycin started. Hospitalist paged. Medical Records Medical records reviewed: Yes I reviewed the patient's medical records. Lab Data Lab results reviewed: Yes I reviewed the patient's lab results. HPI General Mode of arrival: wheelchair . Date/Time Provider Initiated Documentation: 05/24/20 05:45 . Limitations to Documentation: no limitations . Information obtained by: patient, RN notes reviewed and old records reviewed . HPI Narrative: Patient presents to ED with complaint of shortness of breath. More short of breath today than he usually is. Reports a low-grade fever. Also reports cough. No travel outside of [place]. No close contact with any known COVID individuals. Denies chest pain. Has right lower extremity swelling which is chronic and unchanged. Continues to make urine. Stopped smoking 1 year ago and does have history of COPD on inhalers. Related Data Home Medications Medication Instructions Recorded Confirmed aspirin [Aspir-81] 2 tab PO DAILY 12/06/15 05/24/20 clopidogrel 75 mg tablet 75 mg PO DAILY #90 tab-cap 06/09/19 05/24/20 atorvastatin 40 mg tablet 40 mg PO DAILY #90 tab-cap 07/19/19 05/24/20 pantoprazole 40 mg tablet,delayed 40 mg PO DAILY #90 tab 09/11/19 05/24/20 release budesonide-formoterol [Symbicort] 2 puff IH BID PRN 02/23/20 05/24/20 sertraline 50 mg tablet 50 mg PO DAILY #90 tab-cap 03/25/20 05/24/20 Previous Rx's Medication Instructions Recorded clopidogrel 75 mg tablet 75 mg PO DAILY #90 tab-cap 06/09/19 atorvastatin 40 mg tablet 40 mg PO DAILY #90 tab-cap 07/19/19 pantoprazole 40 mg tablet,delayed 40 mg PO DAILY #90 tab 09/11/19 release sertraline 50 mg tablet 50 mg PO DAILY #90 tab-cap 03/25/20 Allergies Allergy/AdvReac Type Severity Reaction Status Date / Time cyclobenzaprine Allergy Mild SKIN RASH Verified 05/24/20 05:58 hydrocodone Allergy SKIN RASH Verified 05/24/20 05:58 Xalzbgv-Myo-Vkx Reductase AdvReac Mild Verified 05/24/20 05:58 Inhibitor doxycycline AdvReac FACIAL Verified 05/24/20 05:58 REDNESS meperidine AdvReac HANGOVER Verified 05/24/20 05:58 FEELING General GOOD: 4 Review of Systems Narrative: 07/24 Review of Systems completed and is negative except as stated above in HPI (Systems reviewed: Const, Eyes, ENT, Resp, CV, GI, , MSK, Skin, Neuro) [facility] Medical History CAD (coronary artery disease) Carotid stenosis, bilateral (Chronic) Cerebellar ataxia (Chronic 08/10/12) COPD (chronic obstructive pulmonary disease) (Acute) Depressive disorder (Acute) GERD (gastroesophageal reflux disease) (Acute) History of CVA (cerebrovascular accident) 2013 Hyperlipidemia (Acute) Right inguinal hernia (Acute 02/20/14) Right rotator cuff tear (Acute 05/02/14) Tubular adenoma of colon (Acute 09/17/17) Vertebral artery stenosis (Acute) Surgical History Appendectomy (~1954) Arthroplasty of knee LEFT Carotid endarterectomy 2016 Colonoscopy - MAC (09/17/17) DR. CHUCK JIMENEZ; TUBULAR ADENOMA History of back surgery (Acute 05/02/14) Family History Mother Personal history of malignant neoplasm Father Heart disease Sister Personal history of malignant neoplasm Brother Heart disease Grandfather No problems noted. Grandfather Acute ill-defined cerebrovascular disease Grandmother No problems noted. Grandmother No problems noted. Social History Smoking/Tobacco Use Status: Former Tobacco Use Tobacco: How many years used: 50 Alcohol Intake: former Drug use: Never Substance use type: does not use Details: quit smoking 2019. Chews tobacco occasionally. Current gender identity: male Do you feel safe at home: Yes Do you feel safe in your relationship?: Yes Exam Narrative Exam Narrative: Vitals: Afebrile with a temp of 99.5. All vitals somewhat elevated including respiratory rate. Room air saturations good. Const: WDWN elderly male in NAD. HEENT: NC/AT. Normal facial exam. Eyes: Normal conjunctiva and sclera. Neck: Supple. Trachea midline. Lungs: Tachypneic but in no acute distress. Decent air exchange. No wheezing. Some rhonchi right base. Cor: RRR without murmur/gallop. Good radial pulses. GI: Soft. NT/ND. No guarding or rebound. Neuro: A+O x 3. Normal speech, mentation. Cranial nerves II - XII grossly intact. No gross motor or sensory deficit. Ext: Right lower extremity with 1-2+ pitting edema. No calf tenderness. Left lower extremity with trace to 1+ pitting edema. Skin: Warm and dry without rash.
--- NOTE | 2020-05-24 06:20 | DI.RAD_ITS ---
EXAM: XR PORTABLE CHEST AP CLINICAL HISTORY: SOB TECHNIQUE: 2D digital imaging was performed. COMPARISON: CR CHEST 2 VIEWS PA,LAT from 02/01/2018 FINDINGS: MEDIASTINUM: Normal. HEART: Normal. PULMONARY VASCULATURE: Normal. LUNGS: Bilateral basilar infiltrates right greater than left. PLEURAL SPACE: No pleural effusion or pneumothorax. BONE:Within normal limits for the patient's age. OTHER FINDINGS:Normal. IMPRESSION: Bilateral basilar infiltrates suspicious for pneumonia. DATA REPOSITORY: RADIATION DOSE DELIVERED:
[2020-05-24 06:27] LABS: Abs Immature Grans 0.06 10^3/uL (0.0-0.06); Absolute Basophil Count 0.05 10^3/uL (0.0-0.2); Absolute Neutrophil Count 13.99 10^3/uL (1.2-6.7); Basophils % 0.3; Eosinophils % 0.7; HGB 13.1 g/dL (13.5-17.5); Immature Grans % 0.4; Lymphocytes % 7.2; MCH 30.5 pg (27.0-33.0); MCHC 32.8 % (32.0-36.0); MPV 9.7 fL (8.0-11.0); Monocytes % 4.1; Neutrophils % 87.3; Nucleated RBC 0 %; Platelet Count 311 10^3/uL (130-400); RDW 14.6 % (11.8-14.1); RDW-SD 49.7 fL; WBC 16.03 10^3/uL (4.4-10.8)
[2020-05-24 06:29] LABS: Absolute Eosinophil Count 0.11 10^3/uL (0.0-0.7); Absolute Lymphocyte Count 1.15 10^3/uL (1.2-3.4); Absolute Monocyte Count 0.66 10^3/uL (0.1-0.8)
[2020-05-24 06:42] LABS: ALT 29 U/L (16-63); AST 28 U/L (15-37); Albumin 3.4 g/dL (3.4-5.0); Alkaline Phosphatase 72 U/L (46-116); BUN 16 mg/dL (7-18); Bilirubin, Total 0.4 mg/dL (0.2-1.0); CREATININE 1.24 mg/dL (0.70-1.30); Calcium 8.6 mg/dL (8.5-10.1); Chloride 101 mmol/L (98-107); Estimated GFR 56.68 (mL/min/1.73m2); Glucose 134 mg/dL (74-106); Magnesium 1.4 mg/dL (1.8-2.4); NT-proBNP 154 pg/mL (<300); Potassium 3.8 mmol/L (3.5-5.1); Sodium 136 mmol/L (136-145); Total Protein 7.2 g/dL (6.4-8.2)
[2020-05-24] MEDS: Normal Saline 1,000 ML 125 ML IV ×3 (06:45→22:05)
[2020-05-24 06:46] LABS: Troponin I < 0.05 ng/mL (<0.06)
[2020-05-24 06:48] LABS: D-Dimer 900 ng/mlFEU (<500)
--- NOTE | 2020-05-24 06:56 | DI.VRAD_ITS ---
PROCEDURE INFORMATION: Exam: XR Chest, 1 View Exam date and time: 05/24/2020 6:20 AM Age: 74 years old Clinical indication: Shortness of breath TECHNIQUE: Imaging protocol: XR of the chest Views: 1 view. COMPARISON: No relevant prior studies available. FINDINGS: Tubes, catheters and devices: Monitoring leads project over the chest. Lungs: Right basilar infiltrate suspicious for pneumonia. Minimal left basilar infiltrate difficult to exclude. No other consolidations. No overt pulmonary edema. Pleural space: Unremarkable. No pleural effusion. No pneumothorax. Heart/Mediastinum: Cardiac size not enlarged. Vasculature: Aortic atherosclerotic calcification. Bones/joints: Mild degenerative changes noted throughout the spine. Remote left lateral rib fracture. IMPRESSION: Right basilar infiltrate suspicious for pneumonia with minimal left basilar infiltrate not excluded. Dictated and Authenticated by: Jame Pickett MD. Ordering:SHAHEEN Bhandari MD
[2020-05-24 07:28] LABS: Lactate 1.1 mmol/L (0.6-1.4)
[2020-05-24] MEDS: Magnesium Oxide 400 MG TAB 800 MG PO (07:46)
[2020-05-24] MEDS: cefTRIAXone 1 GM/50 ML BAG IVPB ×2 (07:46→10:03)
[2020-05-24] MEDS: AZITHROMYCIN 500 MG in Normal Saline 250 ML 250 MG IVPB (08:17)
--- NOTE | 2020-05-24 08:43 | HPE_ITS ---
Date of service: 05/24/20 Time of Service: 08:43 Assessment and Plan Assessment and plan (1) CAP (community acquired pneumonia): Status: Acute Assessment and plan: IV parenteral antibiotics including ceftriaxone and increased dose of 2 g IV daily along with azithromycin 500 mg IV daily. I will give him a short course of IV corticosteroids to reduce his pulmonary inflammation. Encourage sputum mobilization with use of Mucinex and incentive spirometry and Acapella device. Use oxygen per nasal cannula as needed for any hypoxemia. Qualifiers: Laterality: right Lung location: lower lobe of lung Qualified Code(s): J18.9 - Pneumonia, unspecified organism (2) COPD (chronic obstructive pulmonary disease): Status: Acute Assessment and plan: Treatment as listed for kidney acquired pneumonia. We will also keep him on his home medications of Symbicort. He should consider the addition of Spiriva as part of his maintenance therapy. Qualifiers: COPD type: COPD with acute lower respiratory infection Qualified Code(s): J44.0 - Chronic obstructive pulmonary disease with (acute) lower respiratory infection (3) DVT prophylaxis: Status: Acute Assessment and plan: Enoxaparin subcutaneously while hospitalized (4) Copy of advanced directive obtained: Status: Acute Assessment and plan: Initially when I interviewed the patient this morning I asked him whether he had had a conversation with his primary care provider regarding advanced directives and I explicitly explained to the patient asking him what his wishes would be in the event that he had a cardiac or respiratory failure or arrest requiring resuscitation and intubation. Initially he was indecisive and did not recall having had a conversation with his PCP. However nursing staff is since obtain a copy of his C.O.L.S.T. form that was filled out in January and signed by the patient and his primary care provider Dr. Multani. At this time the patient is now indicated that he wants to abide by his C.O.L.S.T. form and be DNR/DNI. (5) Discharge planning issues: Status: Acute Assessment and plan: Patient will be discharged home when he can be safely change her from IV to oral antibiotics and is not showing any respiratory impairment with normal ADL performance. History of Present Illness History of Present Illness Chief Complaint: Dyspnea Narrative: 74-year-old male with a history of COPD not on home oxygen and not steroid- dependent presents with 1 day history of acute shortness of breath chills but no rigors and a nonproductive cough. Work-up in the emergency department showed that he was afebrile however he was tachypneic with respiratory rates in the 30s however he was not hypoxemic but he was found to have an elevated white cell count of 16,000 and a chest x-ray that demonstrated bilateral basilar infiltrates consistent with pneumonia. Dr. Thony Heredia, emergency room physician, obtain blood cultures and started the patient on Rocephin and azithromycin. Patient is now being admitted for treatment of community-acquired pneumonia and COPD. Patient denies any travel outside of [place] in the last 30 days and has had no known exposure to COVID-19 patients. A nasal swab for COVID-19 was obtained the emergency room and is pending at this time. Patient denies any symptoms of chest pain or palpitations or syncope. He has had no nausea or vomiting or diarrhea. He does have a remote history of stroke but denies any history of chronic heart conditions such as angina or myocardial infa rction or CHF. 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 CHUCK JIMENEZ; TUBULAR ADENOMA History of back surgery (Acute 05/02/14) Family History Mother Personal history of malignant neoplasm Father Heart disease Sister Personal history of malignant neoplasm Brother Heart disease Grandfather No problems noted. Grandfather Acute ill-defined cerebrovascular disease Grandmother No problems noted. Grandmother No problems noted. Social History Smoking/Tobacco Use Status: Former Tobacco Use Tobacco: How many years used: 50 Alcohol Intake: former Drug use: Never Substance use type: does not use Details: quit smoking 2019. Chews tobacco occasionally. Current gender identity: male Do you feel safe at home: Yes Do you feel safe in your relationship?: Yes Meds Home Medications and Allergies Home Medications Medication Instructions Recorded Confirmed Type aspirin [Aspir-81] 2 tab PO DAILY 12/06/15 05/24/20 History clopidogrel 75 mg tablet 75 mg PO DAILY #90 tab-cap 06/09/19 05/24/20 Rx atorvastatin 40 mg tablet 40 mg PO DAILY #90 tab-cap 07/19/19 05/24/20 Rx pantoprazole 40 mg tablet,delayed 40 mg PO DAILY #90 tab 09/11/19 05/24/20 Rx release budesonide-formoterol [Symbicort] 2 puff IH BID PRN 02/23/20 05/24/20 History sertraline 50 mg tablet 50 mg PO DAILY #90 tab-cap 03/25/20 05/24/20 Rx Allergies Allergy/AdvReac Type Severity Reaction Status Date / Time cyclobenzaprine Allergy Mild SKIN RASH Verified 05/24/20 05:58 hydrocodone Allergy SKIN RASH Verified 05/24/20 05:58 Tvvozve-Qml-Oli Reductase AdvReac Mild Verified 05/24/20 05:58 Inhibitor doxycycline AdvReac FACIAL Verified 05/24/20 05:58 REDNESS meperidine AdvReac HANGOVER Verified 05/24/20 05:58 FEELING Exam Narrative Exam Narrative: Elderly male sitting up in his bed in semi-garcias position in no respiratory distress. He is able to speak in full sentences and is currently not tachypneic. HEENT is unremarkable. Neck is supple nontender no JVD. He has a well-healed surgical scar over the right carotid area. He has a strong carotid pulse on the right without bruits. He has a palpable but weaker pulse on the left carotid artery also without bruits. No thyromegaly. Lungs reveal bibasilar rales but no wheezes Heart regular rate rhythm without appreciable murmur rub or gallop. Abdomen soft nontender NABS no palpable masses no bruits. Extremities without peripheral cyanosis or edema. There is no calf tenderness. Normal strength and range of motion. Neurologic exam: No facial asymmetry. Speech seems to be slightly dysarthric but patient states this is his baseline. His speech is coherent and intelligible. There is no focal motor deficits he has normal range of motion of strength. Sensation is grossly intact. Genitalia and rectal exam deferred. Not clinically indicated. Results Labs Result diagrams: 05/24/20 06:00 05/24/20 06:00 Labs: Laboratory Results - last 24 hr 05/24/20 05/24/20 05/24/20 06:00 06:00 06:00 WBC 16.03 H RBC 4.30 L Hgb 13.1 L Hct 40.0 MCV 93.0 MCH 30.5 MCHC 32.8 RDW 14.6 H Plt Count 311 MPV 9.7 Immature Gran % 0.4 Neutrophils % 87.3 Lymphocytes % 7.2 Monocytes % 4.1 Eosinophils % 0.7 Basophils % 0.3 Absolute Neutrophils 13.99 H Absolute Lymphocytes 1.15 L Absolute Monocytes 0.66 Absolute Eosinophils 0.11 Absolute Basophils 0.05 D-Dimer 900 H Sodium 136 Potassium 3.8 Chloride 101 Carbon Dioxide 27.0 Anion Gap 8.0 BUN 16 Creatinine 1.24 Estimated GFR/1.73 m2 56.68 Glucose 134 H Lactate Calcium 8.6 Magnesium 1.4 L Total Bilirubin 0.4 AST 28 ALT 29 Alkaline Phosphatase 72 Troponin I < 0.05 NT-Pro-B Natriuret Pep 154 Total Protein 7.2 Albumin 3.4 05/24/20 07:18 WBC RBC Hgb Hct MCV MCH MCHC RDW Plt Count MPV Immature Gran % Neutrophils % Lymphocytes % Monocytes % Eosinophils % Basophils % Absolute Neutrophils Absolute Lymphocytes Absolute Monocytes Absolute Eosinophils Absolute Basophils D-Dimer Sodium Potassium Chloride Carbon Dioxide Anion Gap BUN Creatinine Estimated GFR/1.73 m2 Glucose Lactate 1.1 Calcium Magnesium Total Bilirubin AST ALT Alkaline Phosphatase Troponin I NT-Pro-B Natriuret Pep Total Protein Albumin Last Vital Signs Temp 37.2 C 05/24/20 08:17 Pulse 94 H 05/24/20 08:17 Resp 28 H 05/24/20 08:17 BP 134/64 05/24/20 08:17 Pulse Ox 94 L 05/24/20 08:17 COVID-19 Screening Have you,or household,traveled outside [place] in last 14 days?: No Had IN PERSON contact w/suspected or confirmed C-19 person: No
[2020-05-24] MEDS: Pantoprazole 40 MG TABCR PO (10:02)
[2020-05-24] MEDS: methylPREDNISolone SUCC 125 MG VIAL IVP (10:02)
[2020-05-24] MEDS: Enoxaparin 40 MG/0.4 ML SYR SC (10:02)
[2020-05-24] MEDS: Sertraline 50 MG TAB PO (10:02)
[2020-05-24] MEDS: Clopidogrel 75 MG TAB PO (10:03)
[2020-05-24] MEDS: Aspirin E.C. 81 MG TABEC 162 MG PO (10:03)
[2020-05-24] MEDS: guaiFENesin 600 MG TABCR 1200 MG PO ×2 (10:03→20:19)
[2020-05-24] MEDS: MAGNESIUM SULFATE 2 GM/50 ML BAG IVPB (10:03)
[2020-05-24] MEDS: Normal Saline Flush 10 ML SYR IVP (10:12)
[2020-05-24] MEDS: Budesonide/Formoterol 160/4.5 6 GM 60 PUFF INH IH ×2 (10:41→20:19)
--- NOTE | 2020-05-24 16:35 | PHA.REVIEW ---
Pharmacy Admission Review - Admission Clinical Review (Last Reviewed 05/24/20 @ 15:01 by Mick Love) Copy of advanced directive obtained (Acute) Discharge planning issues (Acute) DVT prophylaxis (Acute) CAP (community acquired pneumonia) (Acute) COPD (chronic obstructive pulmonary disease) (Acute) cyclobenzaprine Allergy (Mild, Verified 05/24/20 05:58) SKIN RASH hydrocodone Allergy (Verified 05/24/20 05:58) SKIN RASH Mqnaxeh-Lom-Ryf Reductase Inhibitor Adverse Reaction (Mild, Verified 05/24/20 05:58) doxycycline Adverse Reaction (Verified 05/24/20 05:58) FACIAL REDNESS meperidine Adverse Reaction (Verified 05/24/20 05:58) HANGOVER FEELING Height 5 ft 7 in Weight 77.111 kg - Renal Dosing Renal Dosing: BUN 16 mg/dL (7-18) 05/24/20 06:00 Creatinine 1.24 mg/dL (0.70-1.30) 05/24/20 06:00 Medications needing adjustments: Reviewed - Anticoagulation Anticoagulation: Hgb 13.1 g/dL (13.5-17.5) L 05/24/20 06:00 Hct 40.0 % (40.0-50.0) 05/24/20 06:00 Plt Count 311 10^3/uL (130-400) 05/24/20 06:00 Creatinine 1.24 mg/dL (0.70-1.30) 05/24/20 06:00 DVT Prohphylaxis: Reviewed Medications: Enoxaparin Therapeutic Anticoagulation: Reviewed Medications: Aspirin - Opiate Usage Evaluate Pain Scale/Pains Meds: N/A - Relevant Labs Sodium 136 mmol/L (136-145) 05/24/20 06:00 Potassium 3.8 mmol/L (3.5-5.1) 05/24/20 06:00 Chloride 101 mmol/L (98-107) 05/24/20 06:00 Magnesium 1.4 mg/dL (1.8-2.4) L 05/24/20 06:00 Electrolytes, C-Reactive P, ESR: Reviewed (mag replaced IV, oral vasquez added) - DM Control DM Control: Glucose 134 mg/dL (74-106) H 05/24/20 06:00 Insulin Dosing: N/A - Heart Failure/WI Heart Failure/WI: Troponin I < 0.05 ng/mL (<0.06) 05/24/20 06:00 NT-Pro-B Natriuret Pep 154 pg/mL (<300) 05/24/20 06:00 EF%, GIRSIH's, B-Blockers, Diuretics: Reviewed - BP Control BP Control: Blood Pressure 133/65 Blood Pressure 131/65 Blood Pressure 134/64 Blood Pressure 134/64 Blood Pressure 146/62 Blood Pressure 156/66 Blood Pressure 131/67 Blood Pressure 144/62 Blood Pressure 148/80 Blood Pressure 141/75 Blood Pressure 133/65 Blood Pressure 162/61 Blood Pressure 162/61 If elevated: Reviewed - Qtc Review If Elevated: Reviewed (QTc 376) - IV to PO Switch IV Medications: Reviewed - Home Meds Home Med List reviewed: Reviewed (Med list up to date, was prescribed Incruse + Atrovent about a year) - Current meds Current Medication Order Review: Reviewed - Comments Comments/Follow Ups: Consider adding spiriva or incruse to therapy per MD note
[2020-05-24] MEDS: methylPREDNISolone SUCC 125 MG VIAL 60 MG IVP (17:12)
[2020-05-24] MEDS: Atorvastatin 40 MG TAB PO (20:19)
[2020-05-24] MEDS: Magnesium Oxide 400 MG TAB PO (20:19)
[2020-05-24 23:05] LABS: Legionella Ag Detection Urine Negative (Negative)
[2020-05-25 00:04] LABS: COVID-19 RT-PCR UVMMC Result Negative (Negative)
[2020-05-25] MEDS: Normal Saline Flush 10 ML SYR IVP (02:14)
[2020-05-25] MEDS: methylPREDNISolone SUCC 125 MG VIAL 60 MG IVP (02:14)
[2020-05-25] MEDS: AZITHROMYCIN 500 MG in Normal Saline 250 ML 250 MG IVPB (05:39)
[2020-05-25] MEDS: Normal Saline 1,000 ML 125 ML IV (05:40)
[2020-05-25 06:58] LABS: Abs Immature Grans 0.14 10^3/uL (0.0-0.06); Absolute Monocyte Count 0.36 10^3/uL (0.1-0.8); Basophils % 0.2; Eosinophils % 0.3; HCT 33.3 % (40.0-50.0); HGB 11.1 g/dL (13.5-17.5); Immature Grans % 0.6; Lymphocytes % 5.7; MCH 30.4 pg (27.0-33.0); MCHC 33.3 % (32.0-36.0); MCV 91.2 fL (80-95); MPV 9.7 fL (8.0-11.0); Monocytes % 1.5; Neutrophils % 91.7; Nucleated RBC 0 %; Platelet Count 276 10^3/uL (130-400); RBC 3.65 10^6/uL (4.36-5.78); RDW 14.9 % (11.8-14.1); RDW-SD 49.6 fL; WBC 24.01 10^3/uL (4.4-10.8)
[2020-05-25 07:08] LABS: Anion Gap 3.4 mmol/L (3-11); BUN 22 mg/dL (7-18); CO2 24.6 mmol/L (21.0-32.0); CREATININE 1.02 mg/dL (0.70-1.30); Calcium 8.2 mg/dL (8.5-10.1); Chloride 107 mmol/L (98-107); Glucose 145 mg/dL (74-106); Magnesium 1.9 mg/dL (1.8-2.4); Potassium 4.2 mmol/L (3.5-5.1); Sodium 135 mmol/L (136-145)
[2020-05-25 07:17] LABS: Absolute Basophil Count 0.05 10^3/uL (0.0-0.2); Absolute Eosinophil Count 0.07 10^3/uL (0.0-0.7); Absolute Lymphocyte Count 1.37 10^3/uL (1.2-3.4); Absolute Neutrophil Count 22.02 10^3/uL (1.2-6.7)
[2020-05-25 07:29] LABS: Diff Comment Agrees w/ Instrument; RBC Morphology Normal
[2020-05-25 07:50] VITALS: BP 118/65; PULSE 72; RESP 22; TEMP 36.7; O2SAT 94
[2020-05-25] MEDS: cefTRIAXone 2 GM/50 ML BAG IVPB (07:50)
[2020-05-25] MEDS: Magnesium Oxide 400 MG TAB PO (07:50)
[2020-05-25] MEDS: Aspirin E.C. 81 MG TABEC 162 MG PO (07:50)
[2020-05-25] MEDS: Clopidogrel 75 MG TAB PO (07:50)
[2020-05-25] MEDS: Sertraline 50 MG TAB PO (07:50)
[2020-05-25] MEDS: guaiFENesin 600 MG TABCR 1200 MG PO (07:50)
[2020-05-25] MEDS: Pantoprazole 40 MG TABCR PO (07:50)
[2020-05-25] MEDS: Budesonide/Formoterol 160/4.5 6 GM 60 PUFF INH IH (07:50)
[2020-05-25 09:26] VITALS: PULSE 120; PULSE 82; PULSE 88; RESP 16; RESP 20; O2SAT 96; O2SAT 97
[2020-05-25] MEDS: predniSONE 20 MG TAB 40 MG PO (09:33)
[2020-05-25] MEDS: Enoxaparin 40 MG/0.4 ML SYR SC (10:00)
--- NOTE | 2020-05-25 10:25 | DSE_ITS ---
Date of service: 05/25/20 Time of Service: 10:25 DS: Diagnosis Discharge Diagnosis (1) CAP (community acquired pneumonia): Status: Acute Asessment and Plan: Patient is being discharged with a 7-day course of Cefpodoxime 200 mg twice a day and azithromycin turn 50 mg p.o. daily x5 days. Patient will get a follow-up chest x-ray in 1 week. Patient is also been prescribed a 5-day course of prednisone 40 mg daily as well as Mucinex. (2) COPD (chronic obstructive pulmonary disease): Status: Acute Asessment and Plan: Patient will continue his Symbicort along with PRN use of albuterol. It is recommended that upon resolution of his pneumonia that he get a follow-up pulmonary function test and consider the addition of Spiriva to his regimen. (3) DVT prophylaxis: Status: Resolved Asessment and Plan: Patient was treated with enoxaparin 40 mg subcutaneously daily while he was hospitalized. There is no need for further prophylaxis. (4) Copy of advanced directive obtained: Status: Acute Asessment and Plan: It should be noted that when the patient was admitted is DNR status was full code however a C.O.L.S.T. form from January 2020 was found in which he indicated a DNR/DNI status. When this was discussed with the patient he changed his CODE STATUS to full code. It is recommended that his PCP go over his C.O.L.S.T. form again with the patient to ensure that the patient's wishes are being respected (5) Discharge planning issues: Status: Resolved Asessment and Plan: Patient is being discharged home with recommendation for close follow-up with his primary care provider within the next week. No home health needs were identified Discharge Plan Disposition Patient Disposition: HOME Condition: Improving Discharge Details Chief Complaint: SOB Clinical Impression: CAP (community acquired pneumonia) Reason For Visit: CAP Admit Date/Time: 05/24/20 07:12 Admit Provider: Mick Love Attending Provider: Mick Love Primary Care Provider: Demetris Multani ED Provider: Thony Heredia [facility] Course Hospital Course: 74-year-old male with a history of COPD not requiring home oxygen and not dependent on steroids presented to the hospital with 1 day history of acute shortness of breath and chills without rigors and a nonproductive cough. Work- up in emergency department showed that he was tachypneic with respiratory rate in the 30s but was not hypoxemic he did have an elevated white count of 16,000 and his chest x-ray showed bilateral basilar infiltrates consistent with pneumonia. Blood and sputum cultures were ordered and patient was started on Rocephin and azithromycin and was admitted to the hospital overnight. Patient was treated with IV corticosteroids aerosolized bronchodilators and antibiotics as noted above. Patient did remarkably well overnight and the next morning was able to ambulate without dyspnea with oxygen saturations of 97% on room air. Blood cultures at 24 hours are showing no growth. Sputum Gram stain showed many white blood cells no epithelial cells with a few gram-positive diplococci and gram-positive cocci in chains however the preliminary culture is normal camacho. Patient's white blood cell count went up overnight from 16,000-24,000 presumably secondary to the IV Solu-Medrol he received. Patient is feeling markedly better and is requesting to be discharged home. Patient was advised that if his respiratory status worsens he should come back to the emergency room immediately. Patient will be discharged home on Cefpodoxime 200 mg twice a day for for 7 more days along with azithromycin 250 mg daily for 4 more days. He will be given prednisone 40 mg daily for 5 days along with an albuterol inhaler that he can use 2 puffs 4 times daily as needed. Otherwise he will remain on his home inhalers which include Symbicort. Follow-up chest x-ray will be obtained in 1 week. Home Meds and New Rx's Prescriptions: New prednisone 10 mg tablet 40 mg PO DAILY 5 Days Qty: 20 RF: 0 cefpodoxime 200 mg tablet 200 mg PO BID 7 Days Qty: 14 RF: 0 azithromycin 250 mg tablet 250 mg PO DAILY 5 Days Qty: 5 RF: 0 albuterol sulfate 90 mcg/actuation aerosol powdr breath activated 2 inh IH QID PRNQty: 1 RF: 0 guaifenesin [Mucinex] 600 mg Tablet Extended Release 12hr 600 mg PO BID 7 Days Qty: 14 RF: 0 Continued clopidogrel 75 mg tablet 75 mg PO DAILY Qty: 90 RF: 3 atorvastatin 40 mg tablet 40 mg PO DAILY Qty: 90 RF: 3 pantoprazole 40 mg tablet,delayed release (DR/EC) 40 mg PO DAILY Qty: 90 RF: 2 sertraline 50 mg tablet 50 mg PO DAILY Qty: 90 RF: 3 aspirin [Aspir-81] 81 MG tablet,delayed release (DR/EC) 2 tab PO DAILY RF: 0 budesonide-formoterol [Symbicort] 160-4.5 mcg/actuation HFA aerosol inhaler 2 puff IH BID PRNRF: 0 Discharge Instructions Instructions: Community Acquired Pneumonia (DC) Additional Instructions: Finish all of your antibiotics until they are gone. Use your albuterol inhaler as directed as needed for wheezing or shortness of breath. Use your Acapella device to help mobilize your mucus. If your shortness of breath worsens or is associated with any chest pain please return the emergency room immediately. Get a follow-up chest x-ray in 1 week Stand Alone Forms: Nursing Discharge Form Referrals: Demetris Multani DO [Primary Care Provider] - (Call the office on Wednesday to schedule an appointment to be seen within 2 weeks) Activity:: Activity as Tolerated Equipment/Supplies:: No Equipment Needed Diet:: Normal Diet Discharge Orders Discharge Orders: Discharge Order (Routine); Ordered 05/25/20 Ordered By: Mick Love Other Ambulatory Orders: XR chest 2V PA & lateral (Routine) Timeframe: 1 Week Facility: [facility] - Location: DIAGNOSTIC IMAGING DEPT Ordered By: Mick Love DS: Summary Status at Discharge Functional status at discharge: independent ambulation Overall status at discharge: patient is progressing back to baseline Mental Status: mental status grossly normal Speech and Movement: speech and movement normal Mood: congruent mood Affect: normal affect Time Spent with Patient providing and/or coordinating discharge services: Less than 30 minutes Exam Narrative Exam Narrative: Alert and oriented person place time circumstance. No respiratory discomfort. Not tachypneic. Normal respirations and no use of accessory respiratory muscles. Neck is supple nontender no JVD. Patient has a scar over the right carotid area from previous carotid surgery. Lungs are clear to auscultation. Heart is regular rate and rhythm Extremities w/out cyanosis or edema Psych Mental Status: mental status grossly normal Speech and Movement: speech and movement normal Mood: congruent mood Affect: normal affect DS: Data Vitals/I&O Vitals and I&O: Vital Signs Temperature 36.7 C 05/25/20 07:50 Temperature Source Tympanic 05/25/20 07:50 Pulse 72 05/25/20 07:50 Pulse Rhythm Regular 05/25/20 07:50 Pulse 97 H 05/24/20 08:16 Respiratory Rate 22 05/25/20 07:50 Respiratory Effort Non-Labored 05/25/20 07:50 Respiratory Depth Normal 05/25/20 07:50 Respiratory Pattern Normal 05/25/20 07:50 Blood Pressure 118/65 05/25/20 07:50 Blood Pressure Mean 81 05/24/20 08:15 Blood Pressure Position Supine 05/24/20 05:49 Pulse Oximetry 94 L 05/25/20 07:50 Oxygen Delivery Method Room Air 05/25/20 07:50 Oxygen Flow Rate 0 05/25/20 07:50 Pain Level 0 05/25/20 07:50 Comment 05/24/20 15:06 Intake & Output 05/24/20 05/24/20 05/25/20 11:59 23:59 11:59 Intake Total 300 / 2427.083 2127.083 / 2427.083 1512.500 / 1512.500 Output Total 240 / 1220 980 / 1220 800 / 800 Balance 60 / 1073.656 9276.083 / 1207.083 712.500 / 712.500 Weight 77.111 kg 80.1 kg Intake: IV 300 / 2177.083 1877.083 / 2177.083 1262.500 / 1262.500 Oral 250 / 250 250 / 250 Output: Urine 240 / 1220 980 / 1220 800 / 800 Other: Urine Color Pale Yellow Yellow Urine Appearance Clear Clear Clear Urine Odor None None None Stool Size Small Moderate Stool Characteristics Soft Soft Formed Formed Voiding Methods Urinal Urinal Urinal Data Completed and Pending Labs on day of discharge: Labs from last 24 hours 05/25/20 05/25/20 05/24/20 06:30 06:30 15:00 WBC 24.01 H D RBC 3.65 L Hgb 11.1 L Hct 33.3 L MCV 91.2 MCH 30.4 MCHC 33.3 RDW 14.9 H Plt Count 276 MPV 9.7 Immature Gran % 0.6 Neutrophils % 91.7 Lymphocytes % 5.7 Monocytes % 1.5 Eosinophils % 0.3 Basophils % 0.2 Absolute Neutrophils 22.02 H Absolute Lymphocytes 1.37 Absolute Monocytes 0.36 Absolute Eosinophils 0.07 Absolute Basophils 0.05 RBC Morphology Normal Sodium 135 L Potassium 4.2 Chloride 107 Carbon Dioxide 24.6 Anion Gap 3.4 BUN 22 H D Creatinine 1.02 Estimated GFR/1.73 m2 >= 60.00 Glucose 145 H Calcium 8.2 L Magnesium 1.9 COVID-19 PCR Nasopharyn COVID-19 PCR Urine Legionella Ag Negative M. pneumoniae Source M. pneumoniae (PCR) Ur Strep pneumoniae Ag Ref Test Perform Site 05/24/20 05/24/20 05/24/20 12:10 12:10 07:45 WBC RBC Hgb Hct MCV MCH MCHC RDW Plt Count MPV Immature Gran % Neutrophils % Lymphocytes % Monocytes % Eosinophils % Basophils % Absolute Neutrophils Absolute Lymphocytes Absolute Monocytes Absolute Eosinophils Absolute Basophils RBC Morphology Sodium Potassium Chloride Carbon Dioxide Anion Gap BUN Creatinine Estimated GFR/1.73 m2 Glucose Calcium Magnesium COVID-19 PCR Negative Nasopharyn COVID-19 PCR Not Applicable Urine Legionella Ag M. pneumoniae Source Pending M. 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 CHUCK JIMENEZ; TUBULAR ADENOMA History of back surgery (Acute 05/02/14) Family History Mother Personal history of malignant neoplasm Father Heart disease Sister Personal history of malignant neoplasm Brother Heart disease Grandfather No problems noted. Grandfather Acute ill-defined cerebrovascular disease Grandmother No problems noted. Grandmother No problems noted. Social History Smoking/Tobacco Use Status: Former Tobacco Use Tobacco: How many years used: 50 Alcohol Intake: former Drug use: Never Substance use type: does not use Details: quit smoking 2019. Chews tobacco occasionally. Current gender identity: male Do you feel safe at home: Yes Do you feel safe in your relationship?: Yes
--- NOTE | 2020-05-25 12:12 | PDOC.CMIN ---
- If Service Date Differs Date of service: 05/25/20 Time of Service: 12:12 Care Management Initial Assess REASON FOR HOSPITALIZATION:: CAP PAST MEDICAL HISTORY/PAST SURGICAL HISTORY:: Medical History . CAD (coronary artery disease). Carotid stenosis, bilateral (Chronic). 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 COPD (chronic obstructive pulmonary disease) (Acute). Depressive disorder (Acute). GERD (gastroesophageal reflux disease) (Acute). History of CVA (cerebrovascular accident). 2013. Hyperlipidemia (Acute). Right inguinal hernia (Acute 02/20/14). Right rotator cuff tear (Acute 05/02/14). Tubular adenoma of colon (Acute 09/17/17). Vertebral artery stenosis (Acute). Surgical History . Appendectomy (~1954). Arthroplasty of knee. LEFT. Carotid endarterectomy. 2016. Colonoscopy - MAC (09/17/17). DR. CHUCK JIMENEZ; TUBULAR ADENOMA. History of back surgery (Acute 05/02/14) PREVIOUS FUNCTIONAL STATUS/SOCIAL/FAMILY SUPPORTS:: Gerald lives in [place] with his Earlene. Leisa and Earlene have 5 children, 19 grandchildren and 14 great grandchildren. The family is close and supportibv and Leisa regularly attends all of their sports games. He is independent at baseline and continues to drive. CURRENT FUNCTIONAL STATUS:: Gerald was getting ready to discharge when CM met with him. He stated that he was pleased to be feeling better and was going to be able to go home. ADVANCE DIRECTIVES:: COLST/DNR form Has patient been provided with info about the portal/API?: No Did the patient sign up for the portal?: No CODE STATUS:: DNR/DNI INSURANCE COVERAGE / FINANCIAL ISSUES:: Medicare. BC/BS PRIMARY CARE PHYSICIAN:: Demetris Multani POTENTIAL DISCHARGE NEEDS:: Follow up with PCP and discharge plan of care PATIENT/FAMILY EDUCATION NEEDS:: Discharge plan, limitations, follow up plan, Ask Me Three. TRANSPORTATION:: via private vehicle with family PLAN:: Gerald will be discharged home with no new services. He will transport via private vehicle with family and follow up with his PCP.
--- NOTE | 2020-05-25 13:17 | PDOC.CMDIS ---
- If Service Date Differs Date of service: 05/25/20 Time of Service: 13:17 LACE Index Scoring Tool - Questions: Length of Stay (in days): 1 Acuity (Admit via E.D.?): Yes Comorbidities: Cerebrovascular Disease, Chronic Pulmonary Disease E.D. Visits: 4 - Answers: Total Score: 11 Risk of Readmission: High Risk Care Management Discharge Reason for Hospitalization: CAP Discharge Plan: Leisa will be discharged home with no new services. He will transport via private vehicle with family and follow up with his PCP and discharge plan of care. Patient/Family Education Needs: Discharge plan, limitations, follow up plan, Ask Me Three.
[2020-05-26 15:25] LABS: Streptococcus Pneumoniae Ag, U Negative (Negative)
[2020-05-27 21:24] LABS: Mycoplasma Pneumoniae PCR Negative; Specimen source SPUTUM
== END 2020-05-25 13:08 | disposition home or self-care (01) | DRG 190 ==
LOC: ER 07:56 → MS 08:30
PROVIDERS: Admitting Provider Internal Medicine; Emergency Provider Emergency Medicine; PCP Emergency Medicine; Visit Provider Internal Medicine
DX: J44.0 Chronic obstructive pulmonary disease with (acute) lower respiratory infection (principal); J18.9 Pneumonia, unspecified organism; G11.9 Hereditary ataxia, unspecified; I65.09 Occlusion and stenosis of unspecified vertebral artery; I25.10 Atherosclerotic heart disease of native coronary artery without angina pectoris; F32.9 Major depressive disorder, single episode, unspecified; K21.9 Gastro-esophageal reflux disease without esophagitis; E78.5 Hyperlipidemia, unspecified; Z86.73 Personal history of transient ischemic attack (TIA), and cerebral infarction without residual deficits; Z66 Do not resuscitate; Z11.59 Encounter for screening for other viral diseases; Z87.891 Personal history of nicotine dependence
CPT/HCPCS: 36410; 36415; 80048; 80053; 87040; 87449; 93005; 94618; 96361; 96365; 99223; 99238; 99285; J1650; U0003; 71045; 83605; 83735; 83880; 84484; 85025; 85379; 87070; 87205; 87450; 87581; 93010; 94667; J0456; J0696; J2930; J7512

== ENCOUNTER 2020-05-29 01:41 | Outpatient (CLI) | payer MEDICARE, BC, SELFPAY ==
--- NOTE | 2020-05-29 06:45 | DI.RAD_ITS ---
EXAM: XR CHEST 2V PA LATERAL CLINICAL HISTORY: Follow-up pneumonia,J18.9 TECHNIQUE: 2D digital imaging was performed. COMPARISON: CR,XR XR PORTABLE CHEST AP from 05/24/2020 FINDINGS: The heart size is normal. There has been interval clearing of previously noted by basilar infiltrate s, right greater than left. There are old left lower rib fractures. No new abnormalities are seen. IMPRESSION: Clearing of bilateral infiltrates. DATA REPOSITORY: RADIATION DOSE DELIVERED:
== END 2020-05-29 02:01 ==
PROVIDERS: PCP Emergency Medicine; Visit Provider Internal Medicine
DX: J18.9 Pneumonia, unspecified organism (principal)
CPT/HCPCS: 71046

== ENCOUNTER 2020-07-11 02:48 | Outpatient (CLI) | payer MEDICARE, BC, SELFPAY ==
--- NOTE | 2020-07-11 15:25 | DI.RAD_ITS ---
EXAM: XR CHEST 2V PA LATERAL CLINICAL HISTORY: f/u pneumonia,J18.9,CAP TECHNIQUE: 2D digital imaging was performed. COMPARISON: CR XR CHEST 2V PA LATERAL from 05/29/2020 FINDINGS: MEDIASTINUM: Normal. HEART: Normal. PULMONARY VASCULATURE: Normal. LUNGS: Clear. PLEURAL SPACE: No pleural effusion or pneumothorax. BONE:Normal. OTHER FINDINGS:Normal. IMPRESSION: No acute pulmonary findings. DATA REPOSITORY: RADIATION DOSE DELIVERED:
== END 2020-07-11 03:08 ==
PROVIDERS: PCP Emergency Medicine; Visit Provider Emergency Medicine
DX: J18.9 Pneumonia, unspecified organism
CPT/HCPCS: 71046

== ENCOUNTER 2020-10-14 03:42 | Observation (INO) | payer MEDICARE, BC, SELFPAY ==
[2020-10-14] VITALS (29 sets, daily range): BP systolic 125–166; BP diastolic 60–99; PULSE 79–118; RESP 7–34; TEMP 36.1–36.9; O2SAT 87–97
--- NOTE | 2020-10-14 03:45 | RT.EKG_ITS ---
APPROVED REPORT Exam: Resting ECG Patient Location: E HR:93 bpm ECG Measurements Heart Rate 93 AXIS AK 170 P 60 QRSd 82 QRS 64 QT 327 T 78 QTc 407 Conclusion Sinus rhythm...normal P axis, V-rate 60- 99 Physician: Rate 93, sinus rhythm, intervals normal, no significant ST elevations or depression, no ST DEMETRI.
--- NOTE | 2020-10-14 03:45 | DI.RAD_ITS ---
EXAM: XR PORTABLE CHEST AP CLINICAL HISTORY: SOB, fever, chills. TECHNIQUE: 2D digital imaging was performed. COMPARISON: Prior chest x-ray 07/11/2020 FINDINGS: Heart size normal. Mediastinum is not widened. Left lung is clear. Increased markings in the right base consistent with platelike atelectasis or possibly early developing infiltrate. There are no pl eural effusions no pneumothorax. Chest leads in place IMPRESSION: Increased markings right lung base. Developing infiltrate. Recommend nonportable PA and lateral vie ws when clinically possible. DATA REPOSITORY: RADIATION DOSE DELIVERED:
--- NOTE | 2020-10-14 03:58 | ED.GENADUL_ITS ---
Discharge Plan Disposition Patient Disposition: [facility] INPATIENT Condition: Stable Discharge Details Chief Complaint: Fever Clinical Impression: Community acquired pneumonia, Breath shortness Primary Care Provider: Demetris Multani ED Provider: Mathew Cruz Home Meds and New Rx's Prescriptions: No Action sertraline 50 mg tablet 50 mg PO DAILY Qty: 90 RF: 3 pantoprazole 40 mg tablet,delayed release (DR/EC) 40 mg PO DAILY Qty: 90 RF: 2 clopidogrel 75 mg tablet 75 mg PO DAILY Qty: 90 RF: 3 atorvastatin 40 mg tablet 40 mg PO DAILY Qty: 90 RF: 3 aspirin [Aspir-81] 81 MG tablet,delayed release (DR/EC) 2 tab PO DAILY RF: 0 budesonide-formoterol [Symbicort] 160-4.5 mcg/actuation HFA aerosol inhaler 2 puff IH BID PRNRF: 0 albuterol sulfate 90 mcg/actuation aerosol powdr breath activated 2 inh IH QID PRNQty: 1 RF: 0 Medical Decision Making 75-year-old male with a past medical history of high cholesterol, hypertension, previous tobacco abuse, quit smoking over a year ago, on daily aspirin and Plavix, reactive airway disease, presents today for evaluation of fever, chills, shortness of breath. Patient states that for the last 24 to 48 hours he has had fever and chills T-max of 103 at home, notably short of breath compared to normal. He denies any cough. He has used his breathing treatments but this is not improved his shortness of breath. He denies any chest pain, chest heaviness, or tightness. In May he had similar symptoms at which time he was diagnosed with pneumonia. He denies any contact with Covid, he states that his family is extremely cautious in this current day and age. He denies any pleuritic chest pain. No other complaints at this time. No other modifying factors. He does state that his symptoms feel similar to when he had his last pneumonia in May. Of note there is a comment of DNR/DNI in his problem list, however per review of previous records and his last admission the patient is a full code which the patient confirms today. Exam demonstrates a notably tachypneic and short of breath patient, however lungs are relatively clear, oxygen saturation stable. No wheezes. Differential includes less likely ACS, more likely pneumonia. Covid is on the differential. PE less likely, will get D-dimer though. Will monitor closely, gently rehydrate, evaluate for concerning etiologies and reassess. I did update the daughter, Sadie. 4:50 AM Laboratory work-up is returned, white count notably elevated at 19, hemoglobin 12.7, notable left shift with 86% neutrophil predominance, D-dimer age-adjusted negative at 642, VBG stable, no CO2 retention, renal function stable. Troponin normal, EKG benign, thyroid function normal. Pending Covid. Chest x-ray shows evidence of atelectasis versus pneumonia in right lower lung, giving Rocephin and azithromycin secondary to doxycycline sensitivities. 5:12 AM Covid test is returned negative. Patient remains mildly tachypneic oxygenation stable in the mid 90s, heart rate is improving after fluid bolus. The patient's age, risk factors, notable white count and left shift in conjunction with his elevated port score I do feel that hospital admission is indicated in this scenario. I have updated the patient and his daughter Airam. We will contact the hospitalist for admission. EKG 3: 58 Rate 93, sinus rhythm, intervals normal, no significant ST elevations or depression, no STEMI. FINDINGS: Lungs: Patchy opacity at the right lung base may reflect linear atelectasis versus focal pneumonia in the correct clinical setting. Pleural space: Unremarkable. No pleural effusion. No pneumothorax. Heart/Mediastinum: Unremarkable. No cardiomegaly. Bones/joints: Unremarkable. IMPRESSION: Patchy opacity at the right lung base may reflect linear atelectasis versus focal pneumonia in the correct clinical setting. Thank you for allowing us to participate in the care of your patient. Dictated and Authenticated by: Roderick Bobby MD 10/14/2020 4:38 AM Eastern Time ([place] & [place]) HPI General Date/Time Provider Initiated Documentation: 10/14/20 03:43 . HPI Narrative: 75-year-old male with a past medical history of high cholesterol, hypertension, previous tobacco abuse, quit smoking over a year ago, on daily aspirin and Plavix, reactive airway disease, presents today for evaluation of fever, chills, shortness of breath. Patient states that for the last 24 to 48 hours he has had fever and chills T-max of 103 at home, notably short of breath compared to normal. He denies any cough. He has used his breathing treatments but this is not improved his shortness of breath. He denies any chest pain, chest heaviness, or tightness. In May he had similar symptoms at which time he was diagnosed with pneumonia. He denies any contact with Covid, he states that his family is extremely cautious in this current day and age. He denies any pleuritic chest pain. No other complaints at this time. No other modifying factors. He does state that his symptoms feel similar to when he had his last pneumonia in May. Of note there is a comment of DNR/DNI in his problem list, however per review of previous records and his last admission the patient is a full code which the patient confirms today. Related Data Home Medications Medication Instructions Recorded Confirmed aspirin [Aspir-81] 2 tab PO DAILY 12/06/15 10/14/20 budesonide-formoterol [Symbicort] 2 puff IH BID PRN 02/23/20 10/14/20 sertraline 50 mg tablet 50 mg PO DAILY #90 tab-cap 03/25/20 10/14/20 albuterol sulfate 2 inh IH QID PRN #1 each 05/25/20 10/14/20 pantoprazole 40 mg tablet,delayed 40 mg PO DAILY #90 tab 06/10/20 10/14/20 release clopidogrel 75 mg tablet 75 mg PO DAILY #90 tab-cap 06/14/20 10/14/20 atorvastatin 40 mg tablet 40 mg PO DAILY #90 tab-cap 07/24/20 10/14/20 Previous Rx's Medication Instructions Recorded sertraline 50 mg tablet 50 mg PO DAILY #90 tab-cap 03/25/20 albuterol sulfate 2 inh IH QID PRN #1 each 05/25/20 pantoprazole 40 mg tablet,delayed 40 mg PO DAILY #90 tab 06/10/20 release clopidogrel 75 mg tablet 75 mg PO DAILY #90 tab-cap 06/14/20 atorvastatin 40 mg tablet 40 mg PO DAILY #90 tab-cap 07/24/20 Allergies Allergy/AdvReac Type Severity Reaction Status Date / Time cyclobenzaprine Allergy Mild SKIN RASH Verified 10/14/20 04:11 hydrocodone Allergy SKIN RASH Verified 10/14/20 04:11 Wkhdpsf-Alv-Ecc Reductase AdvReac Mild Verified 10/14/20 04:11 Inhibitor doxycycline AdvReac FACIAL Verified 10/14/20 04:11 REDNESS meperidine AdvReac HANGOVER Verified 10/14/20 04:11 FEELING General GOOD: 2 Review of Systems All systems reviewed & are unremarkable except as noted in HPI and below PFSH Medical History CAD (coronary artery disease) Carotid stenosis, bilateral 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 No CPR or intubation. GERD (gastroesophageal reflux disease) History of CVA (cerebrovascular accident) 2013 Hyperlipidemia Right inguinal hernia (02/20/14) Right rotator cuff tear (05/02/14) Tubular adenoma of colon (09/17/17) Vertebral artery stenosis Surgical History Appendectomy (~1954) Arthroplasty of knee LEFT Carotid endarterectomy 2015 Colonoscopy - MAC (09/17/17) DR. CHUCK JIMENEZ; TUBULAR ADENOMA History of back surgery (05/02/14) Family History Mother Personal history of malignant neoplasm Father Heart disease Sister Personal history of malignant neoplasm Brother Heart disease Grandfather No problems noted. Grandfather Acute ill-defined cerebrovascular disease Grandmother No problems noted. Grandmother No problems noted. Social History Smoking/Tobacco Use Status: Former Tobacco Use Tobacco: How many years used: 50 Smoking risk assessment performed?: Yes Alcohol Intake: former Drug use: Never Substance use type: does not use Details: quit smoking 2019. Chews tobacco occasionally. Current gender identity: male Do you feel safe at home: Yes Do you feel safe in your relationship?: Yes Exam Narrative Exam Narrative: 1.Const: Well-nourished, Well-developed, appearing stated age 2.Eyes: PERRL, no conjunctival injection, and symmetrical lids. 3.ENT: Atraumatic external nose and ears. Moist MM. Neck: Symmetric, trachea midline, No thyromegaly. 4.CVS: +S1/S2, No murmurs or gallops. Peripheral pulses 2+ and equal in all extremities. Brisk capillary refill in all extremities. 5.RESP: Notable tachypnea, lungs are surprisingly clear with no significant audible wheezes or rhonchi or rales. 6.GI: Soft, Nontender/Nondistended, No hepatosplenomegaly. No guarding or rebound. 7.MSK: Normocephalic/Atraumatic, Extremities w/o deformity or ttp No cyanosis or clubbing, Normal movement of all extremities, no pitting edema or calf tenderness 8.Skin: Warm, Dry. No rashes or lesions. 9.Neuro: ice guard inspector II-XII grossly intact. Sensation grossly intact, no focal neurologic deficits. 10.Psych: (AAO) x3. Appropriate mood and affect Course Lab/Test Results Lab/Test Results: 10/14/20 03:53 Blood Blood Culture - Pending 10/14/20 03:53 Blood Blood Culture - Pending
[2020-10-14 04:11] LABS: Source Nasopharynx
[2020-10-14 04:13] LABS: Lactate 1.8 mmol/L (0.6-1.4)
[2020-10-14] MEDS: Normal Saline 500 ML IV (04:13)
[2020-10-14 04:14] LABS: Abs Immature Grans 0.07 10^3/uL (0.0-0.06); Absolute Eosinophil Count 0.06 10^3/uL (0.0-0.7); Absolute Monocyte Count 0.98 10^3/uL (0.1-0.8); Basophils % 0.3; Eosinophils % 0.3; HCT 38.8 % (40.0-50.0); HGB 12.7 g/dL (13.5-17.5); Immature Grans % 0.4; Lymphocytes % 7.1; MCH 29.7 pg (27.0-33.0); MCHC 32.7 % (32.0-36.0); MCV 90.7 fL (80-95); MPV 9.3 fL (8.0-11.0); Monocytes % 5.1; Neutrophils % 86.8; Nucleated RBC 0 %; Platelet Count 319 10^3/uL (130-400); RBC 4.28 10^6/uL (4.36-5.78); RDW 15.3 % (11.8-14.1); RDW-SD 50.4 fL; WBC 19.13 10^3/uL (4.4-10.8)
[2020-10-14 04:17] LABS: BE (Venous) -2 mmol/L (-2-3); HCO3 (Venous) 24 mmol/L (23-28); O2 Sat (Venous) 84 %; TCO2 (Venous) 22 mmol/L (24-29); pCO2 (Venous) 41 mmHg (41-51); pH (Venous) 7.37 (7.31-7.41); pO2 (Venous) 47 mmHg
[2020-10-14 04:20] LABS: Absolute Basophil Count 0.06 10^3/uL (0.0-0.2); Absolute Lymphocyte Count 1.36 10^3/uL (1.2-3.4)
[2020-10-14 04:28] LABS: PTT Activated 23.3 sec (21.0-27.5); Prothrombin Time 10.1 sec (9.3-11.0)
[2020-10-14 04:36] LABS: ALT 24 U/L (16-63); AST 24 U/L (15-37); Albumin 3.6 g/dL (3.4-5.0); Alkaline Phosphatase 71 U/L (46-116); Anion Gap 7.6 mmol/L (3-11); BUN 21 mg/dL (7-18); Bilirubin, Total 0.5 mg/dL (0.2-1.0); CO2 25.4 mmol/L (21.0-32.0); CREATININE 1.33 mg/dL (0.70-1.30); Calcium 8.3 mg/dL (8.5-10.1); Chloride 103 mmol/L (98-107); Estimated GFR 52.14 (mL/min/1.73m2); Glucose 158 mg/dL (74-106); Potassium 4.1 mmol/L (3.5-5.1); Sodium 136 mmol/L (136-145); TSH (W/Ref FT4) 2.15 uIU/mL (0.36-3.74); Total Protein 7.4 g/dL (6.4-8.2)
--- NOTE | 2020-10-14 04:39 | DI.VRAD_ITS ---
PROCEDURE INFORMATION: Exam: XR Chest, 1 View Exam date and time: 10/14/2020 4:24 AM Age: 75 years old Clinical indication: Fever and shortness of breath; Patient HX: SOB, fever, chills TECHNIQUE: Imaging protocol: XR of the chest Views: 1 view. COMPARISON: CR XR CHEST 2V PA LATERAL 07/11/2020 3:19 PM FINDINGS: Lungs: Patchy opacity at the right lung base may reflect linear atelectasis versus focal pneumonia in the correct clinical setting. Pleural space: Unremarkable. No pleural effusion. No pneumothorax. Heart/Mediastinum: Unremarkable. No cardiomegaly. Bones/joints: Unremarkable. IMPRESSION: Patchy opacity at the right lung base may reflect linear atelectasis versus focal pneumonia in the correct clinical setting. Dictated and Authenticated by: Roderick Bobby MD. Ordering:JAKE Carmona MD
[2020-10-14 04:45] LABS: Troponin I < 0.05 ng/mL (<0.06)
[2020-10-14 04:46] LABS: D-Dimer 642 ng/mlFEU (<500)
[2020-10-14 04:55] LABS: COVID-19 PCR Negative (Negative); Influenza A PCR Negative (Negative); Influenza B PCR Negative (Negative); RSV PCR Negative (Negative)
[2020-10-14] MEDS: cefTRIAXone 2 GM/50 ML BAG IVPB (05:00)
--- NOTE | 2020-10-14 05:21 | HPE_ITS ---
Date of service: 10/14/20 Time of Service: Assessment and Plan Assessment and plan (1) Community acquired pneumonia: Status: Acute Assessment and plan: Continue parenteral antibiotics ceftriaxone 2 g IV daily along with azithromycin turned 50 mg daily. Continue corticosteroid along with aerosolized bronchodilators. Of note patient was treated for similar episode of community-acquired pneumonia in May 2020 and turned around with overnight treatment. As the patient was not hypoxemic on admission I expect that he should do well with his current course of treatment and hopefully be able to be discharged on oral antibiotics in the next 24 to 48 hours. Qualifiers: Laterality: right Lung location: lower lobe of lung Qualified Code(s): J18.9 - Pneumonia, unspecified organism History of Present Illness History of Present Illness Chief Complaint: Fever chills shortness of breath Narrative: 74-year-old male with a history of COPD not on home oxygen and not steroid-dependent presents with 1 day history of acute shortness of breath, chills but no rigors and a nonproductive cough. Patient states that he went to bed last night he felt weak but was not short of breath and not febrile. He woke up during the night with chills and a fever 102. Upon arrival to the emergency department he was afebrile, temperature 36.9 ?C, tachypneic with respiratory rate of 30, and borderline tachycardic with a heart rate of 97 but a stable blood pressure of 151/97. Work-up in ER included chest x-ray, EKG, screening labs. Nasopharyngeal swab for SARS-CoV-2 PCR test was negative. Patient had a leukocytosis of 19,000 with a left shift. VBG showed normal pH and normal PCO2. Chem-20 showed mild azotemia with a BUN of 21 and creatinine 1.33 with a normal carbon dioxide level 25.4. Glucose was elevated at 158. Transaminases and troponin level were normal. EKG demonstrated sinus rhythm rate of 93 bpm with no acute ST or T wave abnormalities. Chest x-ray showed patchy opacity in the right lung base consistent with focal pneumonia. Treatment emergency department included a 500 mL bolus of saline as well as ini tiation of parenteral antibiotics including ceftriaxone 2 g IV and azithromycin 500 mg IV. Note patient has reactions to doxycycline. Patient is now admitted on observation status for treatment of community-acquired pneumonia. Patient lives with his which he says she is chronically ill but to the best of his knowledge she is not running any fever. He has not been around any patients with COVID-19 nor has he nor has his traveled outside the local region. 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 No CPR or intubation. GERD (gastroesophageal reflux disease) History of CVA (cerebrovascular accident) 2013 Hyperlipidemia Right inguinal hernia (02/20/14) Right rotator cuff tear (05/02/14) Tubular adenoma of colon (09/17/17) Vertebral artery stenosis Surgical History Appendectomy (~1954) Arthroplasty of knee LEFT Carotid endarterectomy 2015 Colonoscopy - MAC (09/17/17) DR. CHUCK JIMENEZ; TUBULAR ADENOMA History of back surgery (05/02/14) Family History Mother Personal history of malignant neoplasm Father Heart disease Sister Personal history of malignant neoplasm Brother Heart disease Grandfather No problems noted. Grandfather Acute ill-defined cerebrovascular disease Grandmother No problems noted. Grandmother No problems noted. Social History Smoking/Tobacco Use Status: Former Tobacco Use Tobacco: How many years used: 50 Smoking risk assessment performed?: Yes Alcohol Intake: former Drug use: Never Substance use type: does not use Details: quit smoking 2018. Chews tobacco occasionally. Current gender identity: male Do you feel safe at home: Yes Do you feel safe in your relationship?: Yes Meds Home Medications and Allergies Home Medications Medication Instructions Recorded Confirmed Type aspirin [Aspir-81] 2 tab PO DAILY 12/06/15 10/14/20 History budesonide-formoterol [Symbicort] 2 puff IH BID PRN 02/23/20 10/14/20 History sertraline 50 mg tablet 50 mg PO DAILY #90 tab-cap 03/25/20 10/14/20 Rx albuterol sulfate 2 inh IH QID PRN #1 each 05/25/20 10/14/20 Rx pantoprazole 40 mg tablet,delayed 40 mg PO DAILY #90 tab 06/10/20 10/14/20 Rx release clopidogrel 75 mg tablet 75 mg PO DAILY #90 tab-cap 06/14/20 10/14/20 Rx atorvastatin 40 mg tablet 40 mg PO DAILY #90 tab-cap 07/24/20 10/14/20 Rx Allergies Allergy/AdvReac Type Severity Reaction Status Date / Time cyclobenzaprine Allergy Mild SKIN RASH Verified 10/14/20 04:11 hydrocodone Allergy SKIN RASH Verified 10/14/20 04:11 Ifwlmgd-Yrw-Ssk Reductase AdvReac Mild Verified 10/14/20 04:11 Inhibitor doxycycline AdvReac FACIAL Verified 10/14/20 04:11 REDNESS meperidine AdvReac HANGOVER Verified 10/14/20 04:11 FEELING Exam Narrative Exam Narrative: Elderly gentleman who is alert and oriented to person place time circumstance. Not in any respiratory distress not using accessory respiratory muscles. HEENT is unremarkable. Neck is supple nontender he has bilateral carotid bruits but normal carotid pulses by palpation no JVD and no adenopathy. Lungs with scattered expiratory wheezes and bibasilar rales Heart regular rate and rhythm with a soft systolic murmur over the aortic outflow tract. Abdomen soft and nontender NABS no bruits no abdominal distention no organomegaly Extremities without peripheral cyanosis or edema Neuro exam grossly intact no focal motor deficits no facial asymmetry no dysarthric speech Genitalia rectal exam deferred Results Labs Result diagrams: 10/14/20 04:00 10/14/20 04:00 Labs: Laboratory Results - last 24 hr 10/14/20 10/14/20 10/14/20 04:00 04:00 04:00 WBC 19.13 H RBC 4.28 L Hgb 12.7 L Hct 38.8 L MCV 90.7 MCH 29.7 MCHC 32.7 RDW 15.3 H Plt Count 319 MPV 9.3 Immature Gran % 0.4 Neutrophils % 86.8 Lymphocytes % 7.1 Monocytes % 5.1 Eosinophils % 0.3 Basophils % 0.3 Nucleated RBC % 0 Absolute Neutrophils 16.60 H Absolute Lymphocytes 1.36 Absolute Monocytes 0.98 H Absolute Eosinophils 0.06 Absolute Basophils 0.06 PT INR APTT D-Dimer VBG pH VBG pCO2 VBG pO2 VBG HCO3 VBG Total CO2 VBG O2 Saturation VBG Base Excess VBG Lactate 1.8 H Sodium 136 Potassium 4.1 Chloride 103 Carbon Dioxide 25.4 Anion Gap 7.6 BUN 21 H Creatinine 1.33 H Estimated GFR/1.73 m2 52.14 Glucose 158 H Calcium 8.3 L Total Bilirubin 0.5 AST 24 ALT 24 Alkaline Phosphatase 71 Troponin I < 0.05 Total Protein 7.4 Albumin 3.6 TSH 2.15 COVID-19 Source SARS-CoV-2 (PCR) Influenza Type A (PCR) Influenza Type B (PCR) RSV (PCR) 10/14/20 10/14/20 10/14/20 04:00 04:00 04:00 WBC RBC Hgb Hct MCV MCH MCHC RDW Plt Count MPV Immature Gran % Neutrophils % Lymphocytes % Monocytes % Eosinophils % Basophils % Nucleated RBC % Absolute Neutrophils Absolute Lymphocytes Absolute Monocytes Absolute Eosinophils Absolute Basophils PT 10.1 INR 1.0 APTT 23.3 D-Dimer VBG pH 7.37 VBG pCO2 41 VBG pO2 47 VBG HCO3 24 VBG Total CO2 22 L VBG O2 Saturation 84 VBG Base Excess -2 VBG Lactate Sodium Potassium Chloride Carbon Dioxide Anion Gap BUN Creatinine Estimated GFR/1.73 m2 Glucose Calcium Total Bilirubin AST ALT Alkaline Phosphatase Troponin I Total Protein Albumin TSH COVID-19 Source Nasopharynx SARS-CoV-2 (PCR) Negative Influenza Type A (PCR) Negative Influenza Type B (PCR) Negative RSV (PCR) Negative 10/14/20 04:00 WBC RBC Hgb Hct MCV MCH MCHC RDW Plt Count MPV Immature Gran % Neutrophils % Lymphocytes % Monocytes % Eosinophils % Basophils % Nucleated RBC % Absolute Neutrophils Absolute Lymphocytes Absolute Monocytes Absolute Eosinophils Absolute Basophils PT INR APTT D-Dimer 642 H VBG pH VBG pCO2 VBG pO2 VBG HCO3 VBG Total CO2 VBG O2 Saturation VBG Base Excess VBG Lactate Sodium Potassium Chloride Carbon Dioxide Anion Gap BUN Creatinine Estimated GFR/1.73 m2 Glucose Calcium Total Bilirubin AST ALT Alkaline Phosphatase Troponin I Total Protein Albumin TSH COVID-19 Source SARS-CoV-2 (PCR) Influenza Type A (PCR) Influenza Type B (PCR) RSV (PCR) Last Vital Signs Temp 36.8 C 10/14/20 04:50 Pulse 87 10/14/20 04:46 Resp 26 H 10/14/20 04:46 BP 152/89 H 10/14/20 04:46 Pulse Ox 94 10/14/20 04:46 COVID-19 Screening Have you, or household traveled for leisure in last 14 days?: No Had IN PERSON contact w/suspected or confirmed C-19 person: No
[2020-10-14] MEDS: AZITHROMYCIN 500 MG in Normal Saline 250 ML 250 MG IVPB (05:32)
[2020-10-14] MEDS: methylPREDNISolone SUCC 125 MG VIAL IVP (05:36)
[2020-10-14 05:52] LABS: Bilirubin Negative (Negative); Blood Trace-intact (Negative); Clarity Clear (Clear); Glucose 100 mg/dL (Negative); Ketones Negative (Negative); Leukocyte Esterase Negative (Negative); Nitrite Negative (Negative); Specific Gravity 1.025 (1.005-1.025); Urobilinogen 0.2 EU/dL (Up TO 0.2); pH 6.5 (5-8)
[2020-10-14 06:05] LABS: Epithelial Cells Rare HPF (Negative); RBC 0-2 HPF (0-2); WBC Negative HPF (0-5)
[2020-10-14 06:06] LABS: Bacteria Rare HPF (Negative); C & S Indicated? No; Casts Negative LPF (Negative); Crystals Negative HPF (Negative); Mucus Negative (Negative)
[2020-10-14] MEDS: Normal Saline 1,000 ML 150 ML IV (06:58)
[2020-10-14] MEDS: Enoxaparin 40 MG/0.4 ML SYR SC (08:50)
[2020-10-14] MEDS: Aspirin E.C. 81 MG TABEC 162 MG PO (08:50)
[2020-10-14] MEDS: Pantoprazole 40 MG TABCR PO (08:51)
[2020-10-14] MEDS: Atorvastatin 40 MG TAB PO (08:51)
[2020-10-14] MEDS: Clopidogrel 75 MG TAB PO (08:51)
[2020-10-14] MEDS: Sertraline 50 MG TAB PO (09:16)
[2020-10-14] MEDS: Budesonide/Formoterol 160/4.5 6 GM 60 PUFF INH IH ×2 (11:05→20:32)
--- NOTE | 2020-10-14 11:50 | PHA.REVIEW ---
Pharmacy Admission Review - Admission Clinical Review (Last Reviewed 10/14/20 @ 07:31 by Mick Love) Community acquired pneumonia (Acute) Breath shortness (Acute) cyclobenzaprine Allergy (Mild, Verified 10/14/20 04:11) SKIN RASH hydrocodone Allergy (Verified 10/14/20 04:11) SKIN RASH Tiiulxo-Ojm-Imd Reductase Inhibitor Adverse Reaction (Mild, Verified 10/14/20 04:11) doxycycline Adverse Reaction (Verified 10/14/20 04:11) FACIAL REDNESS meperidine Adverse Reaction (Verified 10/14/20 04:11) HANGOVER FEELING Height 5 ft 7 in Weight 83 kg - Renal Dosing Renal Dosing: BUN 21 mg/dL (7-18) H 10/14/20 04:00 Creatinine 1.33 mg/dL (0.70-1.30) H 10/14/20 04:00 Medications needing adjustments: Reviewed (Crcl ~43 mL/min current meds okay) - Anticoagulation Anticoagulation: Hgb 12.7 g/dL (13.5-17.5) L 10/14/20 04:00 Hct 38.8 % (40.0-50.0) L 10/14/20 04:00 Plt Count 319 10^3/uL (130-400) 10/14/20 04:00 INR 1.0 (0.9-1.1) 10/14/20 04:00 Creatinine 1.33 mg/dL (0.70-1.30) H 10/14/20 04:00 DVT Prohphylaxis: Reviewed Medications: Enoxaparin - Opiate Usage Evaluate Pain Scale/Pains Meds: N/A - Relevant Labs Sodium 136 mmol/L (136-145) 10/14/20 04:00 Potassium 4.1 mmol/L (3.5-5.1) 10/14/20 04:00 Chloride 103 mmol/L (98-107) 10/14/20 04:00 Electrolytes, C-Reactive P, ESR: Reviewed - DM Control DM Control: Glucose 158 mg/dL (74-106) H 10/14/20 04:00 Insulin Dosing: Intervened (BG elevated this morning. Was elevated on previous admission. Last A1c on file was 6.1 in 2017. Will mention to provider.) - Heart Failure/NV Heart Failure/NV: Troponin I < 0.05 ng/mL (<0.06) 10/14/20 04:00 EF%, GIRISH's, B-Blockers, Diuretics: Reviewed - BP Control BP Control: Blood Pressure 146/64 Blood Pressure 153/68 Blood Pressure 134/60 Blood Pressure 134/60 Blood Pressure 165/65 Blood Pressure 155/85 Blood Pressure 158/65 Blood Pressure 152/89 Blood Pressure 148/63 Blood Pressure 125/99 Blood Pressure 151/97 Blood Pressure 151/97 If elevated: Reviewed (BP has been elevated most of this admission so far. Pt is not on any medications for this at home.) - Qtc Review If Elevated: N/A (QTc 407 on admission) - IV to PO Switch IV Medications: Reviewed - Home Meds Home Med List reviewed: Reviewed Relevent Home Meds Not ordered & why?: All home meds are ordered. - Current meds Current Medication Order Review: Reviewed - Comments Comments/Follow Ups: Watch BP, BG, labs, SCr, for micro results, and for med changes. Antibiotic Activity - Pharmacy Antibiotic Review Pharmacy Antibiotic Activity: Reviewed, no change (Day 1 of ceftriaxone and azithromycin for pnemonia. Blood cultures pending.)
[2020-10-14] MEDS: Albuterol/Ipratropium 3 ML UPD VIAL UPD ×3 (12:48→23:43)
[2020-10-14] MEDS: methylPREDNISolone SUCC 125 MG VIAL 60 MG IVP ×2 (13:11→22:05)
--- NOTE | 2020-10-14 15:47 | INITIAL_ITS ---
- If Service Date Differs Date of service: 10/14/20 Time of Service: 17:29 Care Management Initial Assess REASON FOR HOSPITALIZATION:: CAP PAST MEDICAL HISTORY/PAST SURGICAL HISTORY:: CAD, carotid stenosis bilateral, cerebellar ataxia, COPD, depressive disorder, GERD, hx of CVA, hyperlipidemia, right inguinal hernia, right rotator cuff tear, tubular adenoma of colon, vertebral artery stenosis, appendectomy, arthroplasty of knee, carotid endarterectomy, colonoscopy, back surgery PREVIOUS FUNCTIONAL STATUS/SOCIAL/FAMILY SUPPORTS:: Gerald resides in [place] with his Earlene. The couple have five children, 19 grandchildr en and 14 great grandchildren; most all reside locally and are described as close-knit and supportive. Leisa and Earlene are well known community members and for many years have regularly attended sports events for their family members. Leisa is independent at baseline and continues to drive. CURRENT FUNCTIONAL STATUS:: Leisa is up independently in his room and is pleasa nt in interaction. He was admitted to [facility] this morning for further observation due to Pneumonia in the setting of chronic COPD. Anticipate he could return home as soon as tomorrow per MD. ADVANCE DIRECTIVES:: COLST on file; patient verbalized wishes to be a full code to provider upon admission. Has patient been provided with info about the portal/API?: No Did the patient sign up for the portal?: No CODE STATUS:: Full Code INSURANCE COVERAGE / FINANCIAL ISSUES:: Medicare. BC/BS PRIMARY CARE PHYSICIAN:: Demetris Multani, POTENTIAL DISCHARGE NEEDS:: Follow up appointment with PCP, Palliative Care. PATIENT/FAMILY EDUCATION NEEDS:: Review discharge instructions, discuss Ask Me Three. ANTICIPATED BARRIERS TO DISCHARGE:: None identified. TRANSPORTATION:: Via private vehicle with family. PLAN:: Anticipate Gerald will be discharged home with no new services. He will transport via private vehicle with family and follow up with his PCP.
[2020-10-14] MEDS: Normal Saline Flush 10 ML SYR IVP (22:05)
[2020-10-15 04:03] VITALS: BP 105/65; PULSE 87; RESP 20; TEMP 36.3; O2SAT 95
[2020-10-15] MEDS: cefTRIAXone 2 GM/50 ML BAG IVPB (05:35)
[2020-10-15] MEDS: Albuterol/Ipratropium 3 ML UPD VIAL UPD (05:35)
[2020-10-15] MEDS: Normal Saline Flush 10 ML SYR IVP (05:35)
[2020-10-15] MEDS: methylPREDNISolone SUCC 125 MG VIAL 60 MG IVP (05:36)
[2020-10-15 06:57] LABS: Abs Immature Grans 0.18 10^3/uL (0.0-0.06); Absolute Basophil Count 0.02 10^3/uL (0.0-0.2); Absolute Lymphocyte Count 1.45 10^3/uL (1.2-3.4); Absolute Neutrophil Count 19.94 10^3/uL (1.2-6.7); Basophils % 0.1; HCT 33.9 % (40.0-50.0); HGB 11.6 g/dL (13.5-17.5); Immature Grans % 0.8; Lymphocytes % 6.6; MCH 30.3 pg (27.0-33.0); MCHC 34.2 % (32.0-36.0); MCV 88.5 fL (80-95); MPV 9.7 fL (8.0-11.0); Monocytes % 1.5; Nucleated RBC 0 %; Platelet Count 291 10^3/uL (130-400); RBC 3.83 10^6/uL (4.36-5.78); RDW 15.5 % (11.8-14.1); WBC 21.91 10^3/uL (4.4-10.8)
[2020-10-15 07:03] LABS: Absolute Monocyte Count 0.33 10^3/uL (0.1-0.8); Anion Gap 7.1 mmol/L (3-11); BUN 22 mg/dL (7-18); CO2 24.9 mmol/L (21.0-32.0); CREATININE 1.27 mg/dL (0.70-1.30); Calcium 8.7 mg/dL (8.5-10.1); Chloride 105 mmol/L (98-107); Estimated GFR 54.99 (mL/min/1.73m2); Glucose 157 mg/dL (74-106); Potassium 4.6 mmol/L (3.5-5.1); Sodium 137 mmol/L (136-145)
[2020-10-15 07:18] VITALS: BP 160/70; PULSE 85; RESP 20; TEMP 36.6; O2SAT 96
[2020-10-15] MEDS: Budesonide/Formoterol 160/4.5 6 GM 60 PUFF INH IH (07:57)
[2020-10-15 08:10] VITALS: PULSE 100; PULSE 78; RESP 20; RESP 24; O2SAT 92; O2SAT 99
[2020-10-15 08:19] VITALS: RESP 20
[2020-10-15] MEDS: predniSONE 20 MG TAB 60 MG PO (08:31)
[2020-10-15] MEDS: Aspirin E.C. 81 MG TABEC 162 MG PO (08:31)
[2020-10-15] MEDS: Atorvastatin 40 MG TAB PO (08:31)
[2020-10-15] MEDS: Clopidogrel 75 MG TAB PO (08:32)
[2020-10-15] MEDS: Sertraline 50 MG TAB PO (08:32)
[2020-10-15] MEDS: Azithromycin 250 MG TAB PO (08:32)
[2020-10-15] MEDS: Pantoprazole 40 MG TABCR PO (08:32)
[2020-10-15] MEDS: Enoxaparin 40 MG/0.4 ML SYR SC (08:33)
[2020-10-15 11:18] VITALS: BP 110/56; PULSE 80; RESP 22; TEMP 37.2; O2SAT 94
--- NOTE | 2020-10-15 11:18 | W.PM.DS.N ---
Date of service: 10/15/20 Time of Service: 11:19 DS: Diagnosis Discharge Diagnosis (1) Community acquired pneumonia: Status: Acute Discharge Plan Disposition Patient Disposition: HOME Condition: Stable Discharge Details Reason For Visit: COMMUNITY ACQUIRED PNEUMONIA Admit Date/Time: 10/14/20 05:21 Admit Provider: Mick Love Attending Provider: Mick Love Primary Care Provider: Demetris Multani Hospital Course Hospital Course: This is a 75 year old male with history of COPD, pneumonia, not oxygen dependant who presented to the ED with shortness of breath, cough and chills. work up in ED is consistent with community acquired pneumonia. His remained afebrile and hemodynamically stable. He received ceftriaxone and azithromycin in addition to steroids. overnight he improved and is thought to be at his baseline. he did report seeing bugs in the am but thought to be d/t steroids, hospitalization and infection. he is otherwise oriented and with no oxygen requirements. He is stable for discharge to home with no services. he will finish a steroid burst and one week of cefpodoxime in addition to 5 days of azithromycin. his white count remained elevated but clinically improved. this is thought to be d/t steroids and was consistent with a similar presentation in may 2020. he will follow up outpatient with pcp or return sooner for new or worsening symptoms. discussed with DR Quiros Ostrander Meds and New Rx's Prescriptions: New azithromycin 250 mg Tablet 250 mg PO DAILY Qty: 3 RF: 0 prednisone 20 mg Tablet 40 mg PO DAILY Qty: 6 RF: 0 cefpodoxime 200 mg tablet 200 mg PO BID Qty: 10 RF: 0 Continued sertraline 50 mg tablet 50 mg PO DAILY Qty: 90 RF: 3 pantoprazole 40 mg tablet,delayed release (DR/EC) 40 mg PO DAILY Qty: 90 RF: 2 clopidogrel 75 mg tablet 75 mg PO DAILY Qty: 90 RF: 3 atorvastatin 40 mg tablet 40 mg PO DAILY Qty: 90 RF: 3 aspirin [Aspir-81] 81 MG tablet,delayed release (DR/EC) 2 tab PO DAILY RF: 0 budesonide-formoterol [Symbicort] 160-4.5 mcg/actuation HFA aerosol inhaler 2 puff IH BID RF: 0 albuterol sulfate 90 mcg/actuation aerosol powdr breath activated 2 inh IH QID PRNQty: 1 RF: 0 Discharge Instructions Instructions: Community Acquired Pneumonia (DC) Additional Instructions: complete antibiotics and steroids as directed. drink at least 6-8 glasses of water daily to stay well hydrated Referrals: Demetris Multani DO [Primary Care Provider] - Activity:: Activity as Tolerated Equipment/Supplies:: No Equipment Needed Diet:: As Tolerated Discharge Orders Discharge Orders: Discharge Order (Routine); Ordered 10/15/20 Ordered By: Isidra Aiken DS: Summary Status at Discharge Functional status at discharge: independent ambulation Overall status at discharge: patient is progressing back to baseline Mental Status: mental status grossly normal Speech and Movement: speech and movement normal Mood: congruent mood Affect: normal affect Exam Const General: cooperative, comfortable, no acute distress and ill appearing (elderly gentleman of stated age) chronically Nutritional Appearance: average body habitus Orientation: alert, awake and oriented x3 HENMT Head: normal to inspection, normocephalic and atraumatic Mouth: oral mucosae normal Chest Chest: normal inspection of the chest Resp Effort & Inspection: normal respiratory effort and able to speak in complete sentences Auscultation: clear to auscultation bilaterally (dim bases no wheezing or rhonchi) Cardio Rate: regular rate Rhythm: regular rhythm GI Inspection: normal to inspection Palpation: soft Auscultation: normal bowel sounds Skin General skin exam: no rashes or lesions noted Neuro General: patient alert, patient awake, patient oriented x3, moves all extremities and no focal motor deficits Extrem General: normal to inspection and full ROM Psych Mental Status: mental status grossly normal Speech and Movement: speech and movement normal Mood: congruent mood Affect: normal affect Attitude: cooperative Thought Process: normal Thought Content: hallucinations visual (saw bugs in his room in the am, no further issues) Insight: fair Judgment: fair DS: Data Vitals/I&O Vitals and I&O: Vital Signs Temperature 36.6 C 10/15/20 07:18 Temperature Source Tympanic 10/15/20 07:18 Pulse 85 10/15/20 07:18 Pulse Rhythm Regular 10/15/20 08:30 Pulse 88 10/14/20 05:40 Respiratory Rate 20 10/15/20 08:19 Respiratory Effort 10/15/20 08:30 Respiratory Depth Shallow 10/15/20 08:30 Respiratory Pattern Normal 10/15/20 08:30 Blood Pressure 160/70 H 10/15/20 07:18 Blood Pressure Mean 89 10/14/20 05:31 Pulse Oximetry 96 10/15/20 07:18 Oxygen Delivery Method Room Air 10/15/20 07:18 Oxygen Flow Rate 0 10/15/20 07:18 Pain Level 0 10/15/20 07:18 Comment 10/14/20 06:24 Intake & Output 10/14/20 10/14/20 10/15/20 11:59 23:59 11:59 Intake Total 1385 / 1865 480 / 1865 240 / 240 Balance 1385 / 1865 480 / 1865 240 / 240 Weight 83 kg 81.9 kg Intake: IV 1135 / 1135 Oral 250 / 730 480 / 730 240 / 240 Other: Urine Appearance Clear Clear Clear Comment vopiding indepednetly in the toilet Voiding Methods Toilet Data Completed and Pending Labs on day of discharge: Labs from last 24 hours 10/15/20 10/15/20 10/14/20 06:27 06:27 16:10 WBC 21.91 H RBC 3.83 L Hgb 11.6 L Hct 33.9 L MCV 88.5 MCH 30.3 MCHC 34.2 RDW 15.5 H Plt Count 291 MPV 9.7 Immature Gran % 0.8 Neutrophils % 91.0 Lymphocytes % 6.6 Monocytes % 1.5 Eosinophils % 0.0 Basophils % 0.1 Nucleated RBC % 0 Absolute Neutrophils 19.94 H Absolute Lymphocytes 1.45 Absolute Monocytes 0.33 Absolute Eosinophils 0.00 Absolute Basophils 0.02 Sodium 137 Potassium 4.6 Chloride 105 Carbon Dioxide 24.9 Anion Gap 7.1 BUN 22 H Creatinine 1.27 Estimated GFR/1.73 m2 54.99 Glucose 157 H Calcium 8.7 Ur Strep pneumoniae Ag Pending Preliminary micro results at discharge 10/14/20 13:05 Sputum Culture - Preliminary Sputum Normal [place] 10/14/20 04:00 Blood Culture - Preliminary Blood NO GROWTH 24 HOURS 10/14/20 04:10 Blood Culture - Preliminary Blood NO GROWTH 24 HOURS COUNTS INCLUDE 234 BEDS AT THE [facility] Medical History CAD (coronary artery disease) Carotid stenosis, bilateral 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 No CPR or intubation. GERD (gastroesophageal reflux disease) History of CVA (cerebrovascular accident) 2013 Hyperlipidemia Right inguinal hernia (02/20/14) Right rotator cuff tear (05/02/14) Tubular adenoma of colon (09/17/17) Vertebral artery stenosis Surgical History Appendectomy (~1954) Arthroplasty of knee LEFT Carotid endarterectomy 2016 Colonoscopy - MAC (09/17/17) DR. CHUCK JIMENEZ; TUBULAR ADENOMA History of back surgery (05/02/14) Family History Mother Personal history of malignant neoplasm Father Heart disease Sister Personal history of malignant neoplasm Brother Heart disease Grandfather No problems noted. Grandfather Acute ill-defined cerebrovascular disease Grandmother No problems noted. Grandmother No problems noted. Social History Smoking/Tobacco Use Status: Former Tobacco Use Tobacco: How many years used: 50 Smoking risk assessment performed?: Yes Alcohol Intake: former Drug use: Never Substance use type: does not use Details: quit smoking 2019. Chews tobacco occasionally. Current gender identity: male Do you feel safe at home: Yes Do you feel safe in your relationship?: Yes
--- NOTE | 2020-10-15 18:13 | PDOC.CMDIS ---
LACE Index Scoring Tool - Questions: Length of Stay (in days): 1 Acuity (Admit via E.D.?): Yes Comorbidities: Chronic Pulmonary Disease E.D. Visits: 5 - Answers: Total Score: 10 Risk of Readmission: High Risk Care Management Discharge Reason for Hospitalization: CAP Discharge Plan: Gerald will be discharged home with no new services. He will follow up with his PCP and plan of care as prescribed. He will transport via private vehicle with family. Patient/Family Education Needs: Review discharge instructions, discuss Ask Me Three.
--- NOTE | 2020-10-15 20:32 | W.PALLCONSUL ---
Date of service: 10/15/20 History of Present Illness History of Present Illness Chief Complaint: pneumonia; second bout in 4 mos Narrative: I saw Leisa soon before he was due to be discharged. He and I talked about his CODE status and goals of care. He is clear that he wants to remain FULL CODE. We reviewed literature stating that the best he could expect would be about 10% chance of survival for a code in the hospital, based on his age and co-morbidities. This was enough for him. He would allow a trial of intubation up to 3 days. If he coldn't breathe on his own after that, he would want to be extubated, even if this led to his . He doesn't want a feeding tube. He is ok [facility] the [facility] to [facility]; he would like to avoid [facility]. He chose 'limited interventions for his primary type of care, despite his desire to be full code. He states his is very gnosticism, and he has izabella that if he is supposed to , he will see his family in [facility]. Consults Consult date: 10/15/20 Assessment and Plan Assessment and plan (1) Palliative care patient: Status: Chronic Assessment and plan: will follow up with him IN OFFICE in 3 months (2) DNR (do not resuscitate): Status: Acute Assessment and plan: His problem list clearly states that he is DNR/DNI and that COLST was done with his PCP, Dr Jimenez on 06/12/20. I reviewed Dr Jimenez's note from that visit. Apparently, when Mr Ames has been hospitalized in the past, and this time, he has told his admitting doctor that he wants to be full code. Today, it was very hard to tell what he wanted. He told me he was gnosticism and that God will take him when it's his time. He said he believed he would see his family. He did not seem at all afraid of dying. He wanted to go home. He didn't want to talk about code status with me. Will see if Dr Jimenez and/or Geri Wilder RN can readdress. I did review data about his chances of surviving with him (not high), but he didn't want to talk with me about data today. (3) Chewing tobacco nicotine dependence: Status: Chronic Assessment and plan: He did seem to understand that he needs to tell Dr Dimas if he develops mouth sores or lumps in his neck. Advised increases his chance of cancer greatly. (4) History of alcohol abuse: Status: Chronic Assessment and plan: nurses were concerned that he was hallucinating from etoh withdrawal he reports no etoh x > 20 years (5) Goals of care, counseling/discussion: Status: Acute Assessment and plan: In the midst of an admission, Leisa might be too anxious to express his wishes clearly. He seems to have a hard time understanding what is said to him about his health, etc. Defer back to Dr Jimenez for full discussion. Review of Systems Constitutional Constitutional: Reports fatigue, Reports lethargy and Reports weakness Comments: already feeling better wants to go home nurses report he was seeing spiderwebs in the corners of his room he says his glasses were dirty Eyes Eyes: Reports other visual disturbances and Reports requires corrective lenses ENT Ears, Nose, Mouth, and Throat: Reports dizziness and Reports dry mouth Comments: dentures are not fitting well Cardiovascular Cardiovascular: Reports dyspnea and Reports dyspnea on exertion Respiratory Respiratory: Reports cough, Reports dyspnea and Reports dyspnea on exertion Gastrointestinal Gastrointestinal: Reports constipation Genitourinary Genitourinary: Reports difficulty urinating Musculoskeletal Musculoskeletal: Reports back pain and Reports muscle weakness Integumentary/Breasts Skin/Breast: Reports dry skin Neurologic Neurologic: Reports dizziness, Reports other visual disturbances and Reports weakness Psychiatric Psychiatric: Reports visual hallucinations Comments: history of alcohol, but sober x 23 years Endocrine Endocrine: Reports fatigue [facility] Medical History (Updated 10/20/20 @ 12:20 by Krysta Vivas MD) CAD (coronary artery disease) Carotid stenosis, bilateral 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 dependence not interested in quitting COPD (chronic obstructive pulmonary disease) Depressive disorder DNR (do not resuscitate) 06/12/20 Colst form completed. No CPR or intubation. GERD (gastroesophageal reflux disease) Goals of care, counseling/discussion History of alcohol abuse sober since 1997 History of CVA (cerebrovascular accident) 2014 Hyperlipidemia Palliative care patient Right inguinal hernia (02/20/14) Right rotator cuff tear (05/02/14) Tubular adenoma of colon (09/17/17) Vertebral artery stenosis Surgical History Appendectomy (~1954) Arthroplasty of knee LEFT Carotid endarterectomy 2016 Colonoscopy - MAC (09/17/17) DR. CHUCK JIMENEZ; TUBULAR ADENOMA History of back surgery (05/02/14) Family History (Updated 10/20/20 @ 12:07 by Krysta Vivas MD) Mother , of cancer age 73 Personal history of malignant neoplasm Cancer Father , of [place] age 43 Heart disease Sister , had 2 sisters, one of lung cancer one of Alzheimer's disease Personal history of malignant neoplasm Cancer Dementia Brother , had 4 brothers, 2 have of lung cancer Heart disease Cancer Grandfather Acute ill-defined cerebrovascular disease Son Smoker Son Smoker Son No problems noted. Son No problems noted. Daughter Smoker Granddaughter , age 7 from ALL Leukemia, acute lymphoid Social History (Updated 10/20/20 @ 12:13 by Krysta Vivas MD) Smoking/Tobacco Use Status: Current every day Tobacco Type: smokeless tobacco Tobacco: How many years used: 65 Smokeless tobacco user: chewing tobacco Quit status: not considering quitting Counseling given: counseling >3 minutes Smoking risk assessment performed?: Yes Alcohol Intake: former Year quit: 1997 Counseling given: Yes Drug use: Never Substance use type: does not use Details: quit smoking 2018. Still chews daily. 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 Do you think of yourself as: straight/heterosexual Current gender identity: male What is your relationship status?: How often do you talk on the phone with friends or family?: twice per week How often do you get together with friends or relatives?: twice per week Panel score (0-1 are the most socially isolated patients): 2 What type of physical activity do you participate in: independent ambulation and irregular exercise Duration: 15-30 minutes/day Izabella/Baptist: Rastafarian Special izabella needs: No Seatbelt use: sometimes Working smoke detector in home: Yes Fire extinguisher in home: Yes Do you feel safe at home: Yes Do you feel safe in your relationship?: Yes Additional Social history: Lives with . since 1961. He has 5 kids, 19 grandkids and 18 great-grands. He still drives, still works. Chews regularly. Didn't know he should report any mouth sores/lumps to his PCP; explained he is at high risk for oral cancers. Denied any hallucinations today. Said the spider webs he saw were due to dirty glasses. Unclear. His speech is a bit hard to follow due to his loose dentures. Exam Const General: cooperative, comfortable, no acute distress and ill appearing (elderly gentleman of stated age) chronically Nutritional Appearance: average body habitus Orientation: alert, awake and oriented x3 [facility] Head: normal to inspection, normocephalic and atraumatic Mouth: oral mucosae normal Chest Chest: normal inspection of the chest Resp Effort & Inspection: normal respiratory effort and able to speak in complete sentences Auscultation: clear to auscultation bilaterally (dim bases no wheezing or rhonchi) Cardio Rate: regular rate Rhythm: regular rhythm GI Inspection: normal to inspection Palpation: soft Auscultation: normal bowel sounds Skin General skin exam: no rashes or lesions noted Neuro General: patient alert, patient awake, patient oriented x3, moves all extremities and no focal motor deficits Extrem General: normal to inspection and full ROM Psych Mental Status: mental status grossly normal Speech and Movement: speech and movement normal Mood: congruent mood Affect: normal affect Attitude: cooperative Thought Process: normal Thought Content: hallucinations visual (saw bugs in his room in the am, no further issues) Insight: fair Judgment: fair Results Last Vital Signs Temp 99.0 F 10/15/20 11:18 Pulse 80 10/15/20 11:18 Resp 22 10/15/20 11:18 BP 110/56 L 10/15/20 11:18 Pulse Ox 94 10/15/20 11:18 Labs Result diagrams: 10/15/20 06:27 10/15/20 06:27 Labs: Laboratory Results - last 24 hr 10/15/20 10/15/20 06:27 06:27 WBC 21.91 H RBC 3.83 L Hgb 11.6 L Hct 33.9 L MCV 88.5 MCH 30.3 MCHC 34.2 RDW 15.5 H Plt Count 291 MPV 9.7 Immature Gran % 0.8 Neutrophils % 91.0 Lymphocytes % 6.6 Monocytes % 1.5 Eosinophils % 0.0 Basophils % 0.1 Nucleated RBC % 0 Absolute Neutrophils 19.94 H Absolute Lymphocytes 1.45 Absolute Monocytes 0.33 Absolute Eosinophils 0.00 Absolute Basophils 0.02 Sodium 137 Potassium 4.6 Chloride 105 Carbon Dioxide 24.9 Anion Gap 7.1 BUN 22 H Creatinine 1.27 Estimated GFR/1.73 m2 54.99 Glucose 157 H Calcium 8.7
[2020-10-17 00:37] LABS: Streptococcus Pneumoniae Ag, U Negative (Negative)
== END 2020-10-15 12:53 | disposition home or self-care (01) ==
LOC: ER 05:48 → MS 06:07
PROVIDERS: Admitting Provider Internal Medicine; Emergency Provider Student in an Organized Health Care Education/Training Program; PCP Emergency Medicine; Visit Provider Internal Medicine
DX: J18.9 Pneumonia, unspecified organism (principal); J44.0 Chronic obstructive pulmonary disease with (acute) lower respiratory infection; I25.10 Atherosclerotic heart disease of native coronary artery without angina pectoris; G11.9 Hereditary ataxia, unspecified; F32.9 Major depressive disorder, single episode, unspecified; Z66 Do not resuscitate; K21.9 Gastro-esophageal reflux disease without esophagitis; Z86.73 Personal history of transient ischemic attack (TIA), and cerebral infarction without residual deficits; E78.5 Hyperlipidemia, unspecified; I65.09 Occlusion and stenosis of unspecified vertebral artery
CPT/HCPCS: 36415; 80048; 80053; 82805; 87040; 93005; 94618; 94640; 96361; 96365; 96368; 96375; 99220; 99254; 99285; J1650; 71045; 81003; 81015; 83605; 84443; 84484; 85025; 85379; 85610; 85730; 87070; 87205; 87899; 93010; 94667; 94668; 99217; G0378; J0456; J2930; J7512; J7620

== ENCOUNTER 2020-10-21 08:33 | Day surgery (SDC) | payer MEDICARE, BC, SELFPAY | END 2020-10-21 08:53 | PROVIDERS: PCP Emergency Medicine; Visit Provider Ophthalmology | DX: Z53.9 Procedure and treatment not carried out, unspecified reason (principal) | CPT/HCPCS: U0003 ==

== ENCOUNTER 2020-10-21 09:06 | Outpatient (CLI) | payer MEDICARE, BC, SELFPAY ==
[2020-10-22 13:21] LABS: COVID-19 RT-PCR UVMMC Result Negative (Negative)
== END 2020-10-21 09:26 ==
PROVIDERS: PCP Emergency Medicine; Visit Provider Ophthalmology
DX: Z01.818 Encounter for other preprocedural examination (principal)
CPT/HCPCS: U0003

== ENCOUNTER 2020-10-29 11:59 | Outpatient (CLI) | payer MEDICARE, BC, SELFPAY ==
--- NOTE | 2020-10-29 09:30 | DI.RAD_ITS ---
EXAM: XR CHEST 2V PA LATERAL CLINICAL HISTORY: f/u pneumonia, j18.9 TECHNIQUE: 2D digital imaging was performed. COMPARISON: CR XR CHEST 2V PA LATERAL from 07/11/2020 CR,XR XR PORTABLE CHEST AP from 10/14/2020 FINDINGS: MEDIASTINUM: Normal. HEART: Normal. PULMONARY VASCULATURE: Normal. LUNGS: Clear. PLEURAL SPACE: No pleural effusion or pneumothorax. BONE:Within normal limits for the patient's age. OTHER FINDINGS:Normal. IMPRESSION: No acute pulmonary findings. DATA REPOSITORY: RADIATION DOSE DELIVERED:
[2020-10-29 12:40] LABS: Abs Immature Grans 0.05 10^3/uL (0.0-0.06); Absolute Basophil Count 0.08 10^3/uL (0.0-0.2); Absolute Eosinophil Count 0.16 10^3/uL (0.0-0.7); Absolute Lymphocyte Count 2.83 10^3/uL (1.2-3.4); Absolute Monocyte Count 0.49 10^3/uL (0.1-0.8); Basophils % 0.6; Eosinophils % 1.2; HCT 39.1 % (40.0-50.0); HGB 12.8 g/dL (13.5-17.5); Immature Grans % 0.4; Lymphocytes % 21.5; MCH 29.6 pg (27.0-33.0); MCHC 32.7 % (32.0-36.0); MCV 90.3 fL (80-95); Monocytes % 3.7; Neutrophils % 72.6; Nucleated RBC 0 %; Platelet Count 292 10^3/uL (130-400); RBC 4.33 10^6/uL (4.36-5.78); RDW 14.9 % (11.8-14.1); RDW-SD 49.2 fL; WBC 13.14 10^3/uL (4.4-10.8)
[2020-10-29 12:41] LABS: Absolute Neutrophil Count 9.54 10^3/uL (1.2-6.7)
[2020-10-29 14:17] LABS: ALT 29 U/L (16-63); AST 23 U/L (15-37); Albumin 3.4 g/dL (3.4-5.0); Alkaline Phosphatase 68 U/L (46-116); Anion Gap 9.1 mmol/L (3-11); BUN 17 mg/dL (7-18); Bilirubin, Total 0.4 mg/dL (0.2-1.0); CO2 26.9 mmol/L (21.0-32.0); CREATININE 1.31 mg/dL (0.70-1.30); Calcium 8.8 mg/dL (8.5-10.1); Chloride 105 mmol/L (98-107); Estimated GFR 53.06 (mL/min/1.73m2); Glucose 144 mg/dL (74-106); Potassium 4.5 mmol/L (3.5-5.1); Sodium 141 mmol/L (136-145); Total Protein 6.8 g/dL (6.4-8.2)
== END 2020-10-29 12:19 ==
PROVIDERS: PCP Emergency Medicine; Visit Provider Emergency Medicine
DX: J18.9 Pneumonia, unspecified organism (principal); I65.03 Occlusion and stenosis of bilateral vertebral arteries
CPT/HCPCS: 36415; 80053; 71046; 85025

== ENCOUNTER 2020-11-18 21:39 | Day surgery (SDC) | payer SELFPAY | END 2020-11-18 21:40 | disposition home or self-care (01) | LOC: SUR 21:40 | PROVIDERS: Visit Provider Ophthalmology | DX: Z53.9 Procedure and treatment not carried out, unspecified reason (principal) ==

== ENCOUNTER 2020-11-19 22:04 | Outpatient (REF) | payer MEDICARE, BC, SELFPAY ==
[2020-11-19 22:10] LABS: Abs Immature Grans 0.04 10^3/uL (0.0-0.06); Absolute Basophil Count 0.09 10^3/uL (0.0-0.2); Absolute Eosinophil Count 0.08 10^3/uL (0.0-0.7); Absolute Lymphocyte Count 2.32 10^3/uL (1.2-3.4); Absolute Monocyte Count 0.65 10^3/uL (0.1-0.8); Absolute Neutrophil Count 7.22 10^3/uL (1.2-6.7); Basophils % 0.9; Eosinophils % 0.8; HCT 37.4 % (40.0-50.0); HGB 12.4 g/dL (13.5-17.5); Immature Grans % 0.4; Lymphocytes % 22.3; MCH 30.6 pg (27.0-33.0); MCHC 33.2 % (32.0-36.0); MCV 92.3 fL (80-95); MPV 9.5 fL (8.0-11.0); Monocytes % 6.3; Neutrophils % 69.3; Nucleated RBC 0 %; Platelet Count 334 10^3/uL (130-400); RBC 4.05 10^6/uL (4.36-5.78); RDW 15.5 % (11.8-14.1); RDW-SD 51.9 fL
[2020-11-19 22:24] LABS: C-Reactive Protein 0.19 mg/dL (0.0-0.3); Hemoglobin A1C 6.8 % (<5.7)
== END 2020-11-19 22:05 | disposition home or self-care (01) ==
LOC: LBN 22:04
PROVIDERS: PCP Emergency Medicine; Visit Provider Emergency Medicine
DX: E11.9 Type 2 diabetes mellitus without complications (principal); D72.829 Elevated white blood cell count, unspecified; J18.9 Pneumonia, unspecified organism
CPT/HCPCS: 83036; 85025; 86140

== ENCOUNTER 2020-12-10 12:35 | Emergency (ER) | payer MEDICARE, BC, SELFPAY ==
--- NOTE | 2020-12-10 12:25 | ED.GENADUL_ITS ---
Discharge Plan Disposition Patient Disposition: HOME Condition: Stable Discharge Details Clinical Impression: Epistaxis Primary Care Provider: Demetris Multani ED Provider: Cecelia Buck Home Meds and New Rx's Prescriptions: Continued sertraline 50 mg tablet 50 mg PO DAILY Qty: 90 RF: 3 pantoprazole 40 mg tablet,delayed release (DR/EC) 40 mg PO DAILY Qty: 90 RF: 2 clopidogrel 75 mg tablet 75 mg PO DAILY Qty: 90 RF: 3 atorvastatin 40 mg tablet 40 mg PO DAILY Qty: 90 RF: 3 aspirin [Aspir-81] 81 MG tablet,delayed release (DR/EC) 2 tab PO DAILY RF: 0 budesonide-formoterol [Symbicort] 160-4.5 mcg/actuation HFA aerosol inhaler 2 puff IH BID RF: 0 albuterol sulfate 90 mcg/actuation aerosol powdr breath activated 2 inh IH QID PRNQty: 1 RF: 0 No Action amoxicillin-pot clavulanate [Augmentin] 875-125 mg tablet 1 tab PO BID Qty: 8 RF: 0 Discharge Instructions Instructions: Nosebleed (ED) Additional Instructions: Avoid picking or blowing the nose. Be sure to sneeze with your mouth open. Keep a bowl of water near your radiator to add moisture to the air. Also apply Vaseline or bacitracin just inside your nose to keep it moist. If your nosebleed returns, be sure to hold pressure with a clamp. You can spray 2 sprays of the Afrin in either nostril twice daily. Apply ice to your forehead to the back of your head. If the bleeding does not resolve with these measures, follow-up with your primary care doctor or return to the emergency department. Follow-up with your scheduled appoint with her primary care doctor tomorrow Discharge Data Discharge Date/Time-TO BE ENTERED AT DEPARTURE: 12/10/20 16:16 Discharge Physician: Cecelia Buck Medical Decision Making 75-year-old male with a history of chronic alcohol abuse and pancreatitis, CVA, COPD, coronary artery disease on aspirin and Plavix who presents for right-sided nosebleed x 2 since 2 AM. Bleeding stopped en route. There is some fresh blood noted to the right lateral side of nares but no active bleeding or obvious source noted. There is a moderate amount of blood in the posterior oropharynx. 1 spray of Afrin placed into the right nares and clamp placed. Patient was able to spit up some blood from the oropharynx. We will have him gargle with water to remove remainder of blood. Patient continuing to spit up blood. He seems to be anxious and difficult to relax. He is also complaining of his chronic right hip pain. We will give a dose of oxycodone and Valium p.o. Patient remained hemodynamically stable so I do not see indication for checking lab work at this time. Patient's bleeding returned and silver nitrate used to cauterize what appeared to be an anterior bleeding source. Patient continued to spit up blood from the posterior oropharynx. Bleeding briefly returned and 1 additional spray of Afrin administered and clamp were placed. Patient watched for another 40 minutes and no further bleeding. Patient felt good to go home. Case discussed with patient's and daughter over the phone. His is requesting a check of his hemoglobin prior to discharge. Patient has a follow- up appointment with his primary care doctor tomorrow. Advised that he should not pick or blow his nose and avoid sneezing with his mouth open. was advised on steps to take to control bleeding at home. She was advised that if she is concerned about continued bleeding, to call 911 to return to the emergency department. Hemoglobin resolved after discharge 11.6. Has been in the range from 11-12 since May 30. Medical Records Medical records reviewed: Yes I reviewed the patient's medical records. HPI General Mode of arrival: EMS . Date/Time Provider Initiated Documentation: 12/10/20 13:10 . Limitations to Documentation: no limitations . Information obtained by: patient . HPI Narrative: Patient is a 75-year-old male with a shortness of breath alcohol abuse, pancreatitis, CVA, COPD, hyperlipidemia on aspirin and Plavix presents from home for nosebleed. Patient states he first had a R sided nosebleed at 2 AM this morning but this stopped with pressure. Patient states he called EMS at that time and when they arrived the bleeding has stopped. Patient states the R sided nose bleeding started around noon today while playing cards at home. Patient states he normally blows his nose multiple times a day but has not blown his nose today. EMS applied pressure in route and bleeding has stopped. Patient has a history of chronic shortness of breath and states this is no worse than usual. He states he has not been picking his nose. He states he has radiated heat. Related Data Home Medications Medication Instructions Recorded Confirmed aspirin [Aspir-81] 2 tab PO DAILY 12/06/15 12/10/20 budesonide-formoterol [Symbicort] 2 puff IH BID 02/23/20 12/10/20 sertraline 50 mg tablet 50 mg PO DAILY #90 tab-cap 03/25/20 12/10/20 albuterol sulfate 2 inh IH QID PRN #1 each 05/25/20 12/10/20 pantoprazole 40 mg tablet,delayed 40 mg PO DAILY #90 tab 06/10/20 12/10/20 release clopidogrel 75 mg tablet 75 mg PO DAILY #90 tab-cap 06/14/20 12/10/20 atorvastatin 40 mg tablet 40 mg PO DAILY #90 tab-cap 07/24/20 12/10/20 amoxicillin-pot clavulanate 1 tab PO BID #8 tab 12/10/20 [Augmentin] Previous Rx's Medication Instructions Recorded sertraline 50 mg tablet 50 mg PO DAILY #90 tab-cap 03/25/20 albuterol sulfate 2 inh IH QID PRN #1 each 05/25/20 pantoprazole 40 mg tablet,delayed 40 mg PO DAILY #90 tab 06/10/20 release clopidogrel 75 mg tablet 75 mg PO DAILY #90 tab-cap 06/14/20 atorvastatin 40 mg tablet 40 mg PO DAILY #90 tab-cap 07/24/20 amoxicillin-pot clavulanate 1 tab PO BID #8 tab 12/10/20 [Augmentin] Allergies Allergy/AdvReac Type Severity Reaction Status Date / Time cyclobenzaprine Allergy Mild SKIN RASH Verified 12/12/20 09:59 hydrocodone Allergy SKIN RASH Verified 12/12/20 09:59 Dnnrvsw-Gdy-Lcs Reductase AdvReac Mild Verified 12/12/20 09:59 Inhibitor doxycycline AdvReac FACIAL Verified 12/12/20 09:59 REDNESS meperidine AdvReac HANGOVER Verified 12/12/20 09:59 FEELING General GOOD: 2 Review of Systems All systems reviewed & are unremarkable except as noted in HPI and below Constitutional Constitutional: Reports as per HPI, Denies chills and Denies fever(s) Eyes Eyes: Denies blurry vision ENT Ears, Nose, Mouth, and Throat: Denies dizziness, Reports epistaxis, Denies sore throat and Denies throat swelling Cardiovascular Cardiovascular: Denies chest pain and Denies dyspnea Respiratory Respiratory: Denies cough and Denies dyspnea Gastrointestinal Gastrointestinal: Denies abdominal pain, Denies diarrhea and Denies vomiting Genitourinary Genitourinary: Denies hematuria and Denies dysuria Musculoskeletal Musculoskeletal: Denies back pain and Denies numbness Integumentary/Breasts Skin/Breast: Denies lesions and Denies rash Neurologic Neurologic: Denies dizziness, Denies localized weakness and Denies numbness Allergic/Immunologic Allergic/Immunologic: Denies throat swelling [facility] Medical History (Updated 12/10/20 @ 19:05 by HUANG Bowie) CAD (coronary artery disease) Carotid stenosis, bilateral 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 dependence not interested in quitting Chronic SI joint pain COPD (chronic obstructive pulmonary disease) Depressive disorder Elevated white blood cell count, unspecified GERD (gastroesophageal reflux disease) Goals of care, counseling/discussion History of alcohol abuse sober since 1997 History of CVA (cerebrovascular accident) 2014 Hyperlipidemia Palliative care patient Right inguinal hernia (02/20/14) Right rotator cuff tear (05/02/14) Tubular adenoma of colon (09/17/17) Vertebral artery stenosis Surgical History Appendectomy (~1954) Arthroplasty of knee LEFT Carotid endarterectomy 2016 Colonoscopy - MAC (09/17/17) DR. CHUCK JIMENEZ; TUBULAR ADENOMA History of back surgery (05/02/14) Family History (Updated 10/20/20 @ 12:07 by Krysta Vivas MD) Mother , of cancer age 73 Personal history of malignant neoplasm Cancer Father , of [place] age 43 Heart disease Sister , had 2 sisters, one of lung cancer one of Alzheimer's disease Personal history of malignant neoplasm Cancer Dementia Brother , had 4 brothers, 2 have of lung cancer Heart disease Cancer Grandfather Acute ill-defined cerebrovascular disease Son Smoker Son Smoker Son No problems noted. Son No problems noted. Daughter Smoker Granddaughter , age 7 from ALL Leukemia, acute lymphoid Social History Smoking/Tobacco Use Status: Current every day Tobacco Type: smokeless tobacco Tobacco: How many years used: 65 Smokeless tobacco user: chewing tobacco Quit status: not considering quitting Counseling given: counseling >3 minutes Smoking risk assessment performed?: Yes Alcohol Intake: former Year quit: 1997 Counseling given: Yes Drug use: Never Substance use type: does not use Details: quit smoking 2018. Still chews daily. 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 Do you think of yourself as: straight/heterosexual Current gender identity: male What is your relationship status?: How often do you talk on the phone with friends or family?: twice per week How often do you get together with friends or relatives?: twice per week Panel score (0-1 are the most socially isolated patients): 2 What type of physical activity do you participate in: independent ambulation and irregular exercise Duration: 15-30 minutes/day Izabella/Nondenominational: Muslim Special izabella needs: No Seatbelt use: sometimes Working smoke detector in home: Yes Fire extinguisher in home: Yes Do you feel safe at home: Yes Do you feel safe in your relationship?: Yes Additional Social history: Lives with . since 1961. He has 5 kids, 19 grandkids and 18 great-grands. He still drives, still works. Chews regularly. Didn't know he should report any mouth sores/lumps to his PCP; explained he is at high risk for oral cancers. Denied any hallucinations today. Said the spider webs he saw were due to dirty glasses. Unclear. His speech is a bit hard to follow due to his loose dentures. Exam Const General: cooperative and no acute distress Orientation: alert, awake and oriented x3 HENMT Head: normal to inspection Ears: hearing grossly normal bilaterally and external ears normal General nose exam: epistaxis on the right dried blood present and source not visualized (Fresh blood noted right lateral side of nares. No pulsatile bleeding.) Mouth: oral mucosae normal Throat: other (Moderate amount of fresh blood with clots noted posterior oropharynx) Eyes General: appearance normal, both eyes and all related structures Neck Neck: normal visual inspection Resp Effort & Inspection: normal respiratory effort and able to speak in complete sentences Cardio Rate: regular rate Skin General skin exam: no rashes or lesions noted Neuro General: patient alert, patient awake and patient oriented x3 Motor: muscle tone normal throughout Extrem General: normal to inspection and full ROM Psych Appearance: grossly normal Affect: normal affect
[2020-12-10 12:37] VITALS: BP 137/89; PULSE 74; RESP 18; TEMP 36.5; O2SAT 98
[2020-12-10] MEDS: oxyCODONE 5 MG TAB PO (13:30)
[2020-12-10] MEDS: diazePAM 5 MG TAB PO (13:30)
[2020-12-10] MEDS: Silver Nitrate Stick 1 EACH ×2 (14:03→14:23)
[2020-12-10] MEDS: Ondansetron O.D.T. 4 MG TABEF (14:25)
[2020-12-10 15:41] VITALS: BP 149/57; PULSE 77; RESP 16; O2SAT 94
[2020-12-10] MEDS: Bacitracin 30 GM TUBE (15:52)
[2020-12-10 16:18] LABS: Abs Immature Grans 0.04 10^3/uL (0.0-0.06); Absolute Basophil Count 0.08 10^3/uL (0.0-0.2); Absolute Eosinophil Count 0.26 10^3/uL (0.0-0.7); Absolute Lymphocyte Count 2.71 10^3/uL (1.2-3.4); Absolute Monocyte Count 0.75 10^3/uL (0.1-0.8); Absolute Neutrophil Count 6.73 10^3/uL (1.2-6.7); Basophils % 0.8; Eosinophils % 2.5; HCT 35.4 % (40.0-50.0); HGB 11.6 g/dL (13.5-17.5); Immature Grans % 0.4; Lymphocytes % 25.6; MCHC 32.8 % (32.0-36.0); MCV 91.5 fL (80-95); MPV 9.1 fL (8.0-11.0); Monocytes % 7.1; Neutrophils % 63.6; Nucleated RBC 0 %; Platelet Count 318 10^3/uL (130-400); RBC 3.87 10^6/uL (4.36-5.78); RDW 15.5 % (11.8-14.1); WBC 10.57 10^3/uL (4.4-10.8)
== END 2020-12-10 16:16 | disposition home or self-care (01) ==
PROVIDERS: Emergency Provider Physician Assistant; PCP Emergency Medicine
DX: R04.0 Epistaxis (principal); M25.551 Pain in right hip; G89.29 Other chronic pain; Z79.02 Long term (current) use of antithrombotics/antiplatelets; Z79.82 Long term (current) use of aspirin
CPT/HCPCS: 30901; 36415; 99283; 85025; 99281

== ENCOUNTER 2020-12-10 16:59 | Emergency (ER) | payer MEDICARE, BC, SELFPAY ==
[2020-12-10 17:01] VITALS: BP 142/82; PULSE 97; RESP 16; TEMP 36.5; O2SAT 96
--- NOTE | 2020-12-10 17:01 | ED.GENADUL_ITS ---
Discharge Plan Disposition Patient Disposition: HOME Condition: Improving Discharge Details Clinical Impression: Epistaxis Primary Care Provider: Demetris Multani ED Provider: Elvira Johnson Home Meds and New Rx's Prescriptions: New amoxicillin-pot clavulanate [Augmentin] 875-125 mg tablet 1 tab PO BID Qty: 8 RF: 0 Continued sertraline 50 mg tablet 50 mg PO DAILY Qty: 90 RF: 3 pantoprazole 40 mg tablet,delayed release (DR/EC) 40 mg PO DAILY Qty: 90 RF: 2 clopidogrel 75 mg tablet 75 mg PO DAILY Qty: 90 RF: 3 atorvastatin 40 mg tablet 40 mg PO DAILY Qty: 90 RF: 3 aspirin [Aspir-81] 81 MG tablet,delayed release (DR/EC) 2 tab PO DAILY RF: 0 budesonide-formoterol [Symbicort] 160-4.5 mcg/actuation HFA aerosol inhaler 2 puff IH BID RF: 0 albuterol sulfate 90 mcg/actuation aerosol powdr breath activated 2 inh IH QID PRNQty: 1 RF: 0 Discharge Instructions Instructions: Amoxicillin/Clavulanate Potassium (By mouth), Nosebleed (ED) Additional Instructions: The bleeding of your nose has stopped with the packing. This packing should stay in place for the next 1 to 2 days. As there is a risk for infection with this, please take the Augmentin as prescribed. Please keep your appointment tomorrow with Dr. Blackwood. I have referred you to an ear nose and throat doctor. I am hoping that you will be reevaluated by them in the next [address] Buck's previous recommendations in regard to prevention including ensuring that your mucous membranes are hydrated, you are using the humidifier, prevent picking or blowing. If you develop recurrent bleeding, weakness or other new/worsening symptoms please seek care urgently once again. Referrals: Demetris Multani, [Primary Care Provider] - Medical Decision Making Patient is a pleasant 75-year-old male presenting today with chief complaint of recurrent right nares epistaxis. He was just discharged from the ED with the same. At that time, provider had treated him with aspirin, clamp. Silver nitrate was used to cauterize anterior bleeding source. Patient remained in the ED for 40 minutes with no further bleeding and patient felt well to go home. However, prior to leaving the hospital, he began to bleed again. He denies any sneezing, coughing or trauma. Please see initial providers note regarding initial presentation. Patient is anticoagulated with aspirin and Plavix. On exam, patient appears nontoxic. Slight tachycardic to 97 with a blood pressure 142/82. He does have an anterior bleed noted again on reassessment. This is again cauterized using silver nitrate and direct visualization. Bleeding stopped. We will continue to monitor the patient. Patient remains hemodynamically stable. Do not see any evidence of significant bleeding. He did have CBC completed prior to his departure earlier today and is not found to be profoundly anemic. I do not believe that he bled enough to cause any hemodynamic instability or risk of worsening anemia. He is not hypertensive here. Patient was initially tachycardic but this did come down after being able to calm down some. Patient is able to sit for approximately 30 minutes without reactivation of his bleeding. However, patient began to bleed once again. Attempted to pack patient's right naris with TXA soaked gauze. However, patient seemed to continue to bleed around the gauze. Patient and I then discussed utility of Rhino Rocket and leaving packing in place. He voiced understanding and wishes to proceed. We discussed risks/benefits of this procedure as well as potential complications. 7.5 rapid rhino for both anterior/p;osterior bleeding was inserted and filled with air. Patient tolerated procedure well. We will begin him on Augmentin. I encourage close follow-up with ENT and of asked that he be reevaluated in the next 24 to 48 hours. Patient does have a scheduled follow-up appointment with his primary care tomorrow. I did advise that he keep this. Patient was kept in the department for another hour and continues to not have any bleeding. He states that the Rhino Rocket is comfortable. Tolerating this well, breathing comfortably. Drinking water. I did speak with the patient's . She was quite concerned regarding follow-up. She also spoke with care management. Patient and I discussed care of the nasal packing. He was given dosing for Augmentin to go home with for tonight and tomorrow morning. We discussed strict return precautions. He will keep his appointment tomorrow. He was advised that he is not able to see ENT for removal of the packing that he can return to the ED and should have this out within the next 48 hours. All the questions and concerns were addressed and he is in agreement with this plan. He will follow Dr. Buck's previous recommendations regarding prevention after removal of the packing. HPI General Mode of arrival: ambulatory . Date/Time Provider Initiated Documentation: 12/10/20 17:01 . Limitations to Documentation: no limitations . Information obtained by: patient, RN notes reviewed and old records reviewed . History of Present Illness 75 year old M presents to the emergency department with the chief complaint of epistaxis, described as mild and similar to prior episodes, Quality is described as other (patient denies any pain), and is localized to the face. Patient reports no radiation. Patient started experiencing this minute(s) and it has been intermittent. Medication improves symptom(s), (recieved afrin during ED visit just prior to arrival) No exacerbating factors reported . Patient notes no other symptoms.. Patient did receive the following treatments prior to arrival, none Related Data Home Medications Medication Instructions Recorded Confirmed aspirin [Aspir-81] 2 tab PO DAILY 12/06/15 12/10/20 budesonide-formoterol [Symbicort] 2 puff IH BID 02/23/20 12/10/20 sertraline 50 mg tablet 50 mg PO DAILY #90 tab-cap 03/25/20 12/10/20 albuterol sulfate 2 inh IH QID PRN #1 each 05/25/20 12/10/20 pantoprazole 40 mg tablet,delayed 40 mg PO DAILY #90 tab 06/10/20 12/10/20 release clopidogrel 75 mg tablet 75 mg PO DAILY #90 tab-cap 06/14/20 12/10/20 atorvastatin 40 mg tablet 40 mg PO DAILY #90 tab-cap 07/24/20 12/10/20 amoxicillin-pot clavulanate 1 tab PO BID #8 tab 12/10/20 [Augmentin] Previous Rx's Medication Instructions Recorded sertraline 50 mg tablet 50 mg PO DAILY #90 tab-cap 03/25/20 albuterol sulfate 2 inh IH QID PRN #1 each 05/25/20 pantoprazole 40 mg tablet,delayed 40 mg PO DAILY #90 tab 06/10/20 release clopidogrel 75 mg tablet 75 mg PO DAILY #90 tab-cap 06/14/20 atorvastatin 40 mg tablet 40 mg PO DAILY #90 tab-cap 07/24/20 amoxicillin-pot clavulanate 1 tab PO BID #8 tab 12/10/20 [Augmentin] Allergies Allergy/AdvReac Type Severity Reaction Status Date / Time cyclobenzaprine Allergy Mild SKIN RASH Verified 12/10/20 12:36 hydrocodone Allergy SKIN RASH Verified 12/10/20 12:36 Czzmgmc-Zfk-Juo Reductase AdvReac Mild Verified 12/10/20 12:36 Inhibitor doxycycline AdvReac FACIAL Verified 12/10/20 12:36 REDNESS meperidine AdvReac HANGOVER Verified 12/10/20 12:36 FEELING General GOOD: 4 Review of Systems Constitutional Constitutional: Reports as per HPI, Denies chills, Denies fatigue, Denies fever(s) and Denies headache(s) Eyes Eyes: Reports as per HPI, Denies blurry vision and Denies change in vision ENT Ears, Nose, Mouth, and Throat: Reports as per HPI, Denies bleeding gums, Denies change in voice and Denies headache(s) Cardiovascular Cardiovascular: Reports as per HPI, Denies chest pain and Denies dyspnea Respiratory Respiratory: Reports as per HPI, Denies cough, Denies hemoptysis and Denies dyspnea Gastrointestinal Gastrointestinal: Reports as per HPI, Denies melena, Denies hematochezia, Denies nausea and Denies vomiting Genitourinary Genitourinary: Reports as per HPI and Denies hematuria Integumentary/Breasts Skin/Breast: Denies unusual bruising Neurologic Neurologic: Denies headache(s) Endocrine Endocrine: Denies fatigue Hematologic/Lymphatic Hematologic/Lymphatic: Reports as per HPI, Denies easy bleeding and Denies easy bruising [facility] Medical History (Updated 12/10/20 @ 19:05 by HUANG Bowie) CAD (coronary artery disease) Carotid stenosis, bilateral 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 dependence not interested in quitting Chronic SI joint pain COPD (chronic obstructive pulmonary disease) Depressive disorder Elevated white blood cell count, unspecified GERD (gastroesophageal reflux disease) Goals of care, counseling/discussion History of alcohol abuse sober since 1997 History of CVA (cerebrovascular accident) 2014 Hyperlipidemia Palliative care patient Right inguinal hernia (02/20/14) Right rotator cuff tear (05/02/14) Tubular adenoma of colon (09/17/17) Vertebral artery stenosis Surgical History Appendectomy (~1954) Arthroplasty of knee LEFT Carotid endarterectomy 2016 Colonoscopy - MAC (09/17/17) DR. CHUCK JIMENEZ; TUBULAR ADENOMA History of back surgery (05/02/14) Family History (Updated 10/20/20 @ 12:07 by Krysta Vivas MD) Mother , of cancer age 73 Personal history of malignant neoplasm Cancer Father , of [place] age 43 Heart disease Sister , had 2 sisters, one of lung cancer one of Alzheimer's disease Personal history of malignant neoplasm Cancer Dementia Brother , had 4 brothers, 2 have of lung cancer Heart disease Cancer Grandfather Acute ill-defined cerebrovascular disease Son Smoker Son Smoker Son No problems noted. Son No problems noted. Daughter Smoker Granddaughter , age 7 from ALL Leukemia, acute lymphoid Social History Smoking/Tobacco Use Status: Current every day Tobacco Type: smokeless tobacco Tobacco: How many years used: 65 Smokeless tobacco user: chewing tobacco Quit status: not considering quitting Counseling given: counseling >3 minutes Smoking risk assessment performed?: Yes Alcohol Intake: former Year quit: 1997 Counseling given: Yes Drug use: Never Substance use type: does not use Details: quit smoking 2019. Still chews daily. 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 Do you think of yourself as: straight/heterosexual Current gender identity: male What is your relationship status?: How often do you talk on the phone with friends or family?: twice per week How often do you get together with friends or relatives?: twice per week Panel score (0-1 are the most socially isolated patients): 2 What type of physical activity do you participate in: independent ambulation and irregular exercise Duration: 15-30 minutes/day Izabella/Christianity: Spiritism Special izabella needs: No Seatbelt use: sometimes Working smoke detector in home: Yes Fire extinguisher in home: Yes Do you feel safe at home: Yes Do you feel safe in your relationship?: Yes Additional Social history: Lives with . since 1961. He has 5 kids, 19 grandkids and 18 great-grands. He still drives, still works. Chews regularly. Didn't know he should report any mouth sores/lumps to his PCP; explained he is at high risk for oral cancers. Denied any hallucinations today. Said the spider webs he saw were due to dirty glasses. Unclear. His speech is a bit hard to follow due to his loose dentures. Exam Const General: cooperative, healthy appearing, comfortable, no acute distress and well developed Nutritional Appearance: average body habitus and well nourished Orientation: alert and awake [facility] Head: normal to inspection, normocephalic and atraumatic Ears: hearing grossly normal bilaterally General nose exam: no nasal polyps, septum normal and epistaxis on the right anterior source and active bleeding Face and sinus: normal facial exam Mouth: oral mucosae normal, lip normal and tongue normal Throat: other (blood noted in posterior orpharynx) Eyes General: appearance normal, both eyes and all related structures Neck Neck: normal visual inspection, full ROM, no lymphadenopathy, no meningeal signs and no lymphadenopathy noted Resp Effort & Inspection: normal respiratory effort, able to speak in complete sentences and no respiratory distress Cardio Rate: regular rate Rhythm: regular rhythm Skin General skin exam: no rashes or lesions noted Neuro General: patient alert, patient awake and patient oriented x3 Cognition: normal cognition Speech: speech normal Gait: normal gait Psych Appearance: grossly normal and well kempt Mental Status: mental status grossly normal Speech and Movement: speech and movement normal
[2020-12-10 18:10] VITALS: BP 123/70; PULSE 98; RESP 16; O2SAT 94
--- NOTE | 2020-12-10 18:25 | NUR.NOTE ---
Nursing Note: Referral faxed to ENT in [place], [place], [place], for epistaxis. Akilah Bautista
--- NOTE | 2020-12-10 18:56 | PDOC.ERCMPRO ---
- If Service Date Differs Date of service: 12/10/20 Time of Service: 18:56 Care Management Progress Note Leisa presents in the ED via EMS for epistaxis. HUANG Bowie, ED provider, and CM briefly meet with Leisa to advise him his , Earlene, would like for him to remain at [facility] overnight and to inquire as to his wishes. Leisa is clear that he is going home. He is advised a referral has been made to ENT and is instructed to either have ENT remove the packing from his right nostril or to return to the ED to have it taken out. Leisa states he is seeing his PCP, Dr. Multani, tomorrow and will likely return to the ED to have the packing removed. Elvira reiterates the importance of Leisa being seen by ENT. At ED provider's request, CM contacts patient's to let her know her is being discharged home. Earlene shares how worried she is about him and states she only wants for him to receive the best care possible. CM advises her a referral has been made to ENT and enlists her help in making sure Leisa follows up with them. She thanks me for listening to her concerns and asks that I thank Elvira for making a referral to the nose specialist.
[2020-12-10 19:03] VITALS: BP 128/62; PULSE 89; RESP 16; TEMP 36.5; O2SAT 94
[2020-12-10] MEDS: Amox. 875/Clav. 125, 2 TABS/BTL 1 TAB PO (19:23)
== END 2020-12-10 19:27 | disposition home or self-care (01) ==
PROVIDERS: Emergency Provider Physician Assistant; PCP Emergency Medicine
DX: R04.0 Epistaxis (principal)
CPT/HCPCS: 30901; 36415; 99283; 85025; 99281

== ENCOUNTER 2020-12-14 03:46 | Emergency (ER) | payer MEDICARE, BC, SELFPAY ==
--- NOTE | 2020-12-14 03:49 | ED.GENADUL_ITS ---
Discharge Plan Disposition Patient Disposition: HOME Condition: Good Discharge Details Clinical Impression: Epistaxis Primary Care Provider: Demetris Multani ED Provider: Thony Heredia Meds and New Rx's Prescriptions: Continued sertraline 50 mg tablet 50 mg PO DAILY Qty: 90 RF: 3 pantoprazole 40 mg tablet,delayed release (DR/EC) 40 mg PO DAILY Qty: 90 RF: 2 clopidogrel 75 mg tablet 75 mg PO DAILY Qty: 90 RF: 3 atorvastatin 40 mg tablet 40 mg PO DAILY Qty: 90 RF: 3 aspirin [Aspir-81] 81 MG tablet,delayed release (DR/EC) 2 tab PO DAILY RF: 0 amoxicillin-pot clavulanate [Augmentin] 875-125 mg tablet 1 tab PO BID Qty: 8 RF: 0 budesonide-formoterol [Symbicort] 160-4.5 mcg/actuation HFA aerosol inhaler 2 puff IH BID RF: 0 albuterol sulfate 90 mcg/actuation aerosol powdr breath activated 2 inh IH QID PRNQty: 1 RF: 0 Discharge Instructions Instructions: Nosebleed (ED) Additional Instructions: Leave packing in place until you are seen by ear nose and throat on Wednesday. Take Augmentin twice a day while packing is in place. Return to ED if recurrent uncontrolled bleeding, difficulty breathing, fever, other concerns. Referrals: Justus Jason DO [OSTEOPATHIC DOCTOR] - Medical Decision Making Clot manually removed by me. Evidence of previous cauterization noted anterior nares. No active bleeding. However, given the prolonged bleeding that he had previously as well as the recent cauterization and problems with bleeding during the week, we discussed placing another rapid Rhino over the weekend. Patient agreeable. 7.5 cm rapid Rhino placed without any difficulty. Patient tolerated well. He was observed with no recurrent bleeding. He will restart the Augmentin well the packing is replaced. Follow-up with ENT on Wednesday as planned. Return to ED for recurrent uncontrolled bleeding, fever, chest pain, shortness of breath. Medical Records Medical records reviewed: Yes I reviewed the patient's medical records. HPI General Mode of arrival: EMS . Date/Time Provider Initiated Documentation: 12/14/20 03:48 . Limitations to Documentation: no limitations . Information obtained by: patient, RN notes reviewed and old records reviewed . HPI Narrative: Patient presents to ED by ambulance with recurrent uncontrolled nosebleed. Patient seen here twice in the same day earlier this week. On first visit he was treated with Afrin and silver nitrate. Returned later that day with bleeding and had packing placed. Subsequently followed up with primary care and had packing removed 2 days ago. Was seen by ENT yesterday and reports more cauterization. Is supposed to follow-up with ENT again Wednesday. Woke up bleeding from the right nares again this morning. Unable to control at home after 3 hours and EMS called. Patient denies dizziness, shortness of breath, chest pain. Related Data Home Medications Medication Instructions Recorded Confirmed aspirin [Aspir-81] 2 tab PO DAILY 12/06/15 12/14/20 budesonide-formoterol [Symbicort] 2 puff IH BID 02/23/20 12/14/20 sertraline 50 mg tablet 50 mg PO DAILY #90 tab-cap 03/25/20 12/14/20 albuterol sulfate 2 inh IH QID PRN #1 each 05/25/20 12/14/20 pantoprazole 40 mg tablet,delayed 40 mg PO DAILY #90 tab 06/10/20 12/14/20 release clopidogrel 75 mg tablet 75 mg PO DAILY #90 tab-cap 06/14/20 12/14/20 atorvastatin 40 mg tablet 40 mg PO DAILY #90 tab-cap 07/24/20 12/14/20 amoxicillin-pot clavulanate 1 tab PO BID #8 tab 12/10/20 12/14/20 [Augmentin] Previous Rx's Medication Instructions Recorded sertraline 50 mg tablet 50 mg PO DAILY #90 tab-cap 03/25/20 albuterol sulfate 2 inh IH QID PRN #1 each 05/25/20 pantoprazole 40 mg tablet,delayed 40 mg PO DAILY #90 tab 06/10/20 release clopidogrel 75 mg tablet 75 mg PO DAILY #90 tab-cap 06/14/20 atorvastatin 40 mg tablet 40 mg PO DAILY #90 tab-cap 07/24/20 amoxicillin-pot clavulanate 1 tab PO BID #8 tab 12/10/20 [Augmentin] Allergies Allergy/AdvReac Type Severity Reaction Status Date / Time cyclobenzaprine Allergy Mild SKIN RASH Verified 12/14/20 04:05 hydrocodone Allergy SKIN RASH Verified 12/14/20 04:05 Iqdcusn-Fff-Qlw Reductase AdvReac Mild Verified 12/14/20 04:05 Inhibitor doxycycline AdvReac FACIAL Verified 12/14/20 04:05 REDNESS meperidine AdvReac HANGOVER Verified 12/14/20 04:05 FEELING General GOOD: 4 Review of Systems Narrative: As documented in HPI otherwise negative as below. 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 dependence not interested in quitting Chronic SI joint pain COPD (chronic obstructive pulmonary disease) Depressive disorder Elevated white blood cell count, unspecified GERD (gastroesophageal reflux disease) Goals of care, counseling/discussion History of alcohol abuse sober since 1997 History of CVA (cerebrovascular accident) 2014 Hyperlipidemia Palliative care patient Right inguinal hernia (02/20/14) Right rotator cuff tear (05/02/14) Tubular adenoma of colon (09/17/17) Vertebral artery stenosis Surgical History Appendectomy (~1954) Arthroplasty of knee LEFT Carotid endarterectomy 2016 Colonoscopy - MAC (09/17/17) DR. CHUCK JIMENEZ; TUBULAR ADENOMA History of back surgery (05/02/14) Family History (Updated 10/20/20 @ 12:07 by Krysta Vivas MD) Mother , of cancer age 73 Personal history of malignant neoplasm Cancer Father , of [place] age 43 Heart disease Sister , had 2 sisters, one of lung cancer one of Alzheimer's disease Personal history of malignant neoplasm Cancer Dementia Brother , had 4 brothers, 2 have of lung cancer Heart disease Cancer Grandfather Acute ill-defined cerebrovascular disease Son Smoker Son Smoker Son No problems noted. Son No problems noted. Daughter Smoker Granddaughter , age 7 from ALL Leukemia, acute lymphoid Social History Smoking/Tobacco Use Status: Current every day Tobacco Type: smokeless tobacco Tobacco: How many years used: 65 Smokeless tobacco user: chewing tobacco Quit status: not considering quitting Counseling given: counseling >3 minutes Smoking risk assessment performed?: Yes Alcohol Intake: former Year quit: 1997 Counseling given: Yes Drug use: Never Substance use type: does not use Details: quit smoking 2018. Still chews daily. 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 Do you think of yourself as: straight/heterosexual Current gender identity: male What is your relationship status?: How often do you talk on the phone with friends or family?: twice per week How often do you get together with friends or relatives?: twice per week Panel score (0-1 are the most socially isolated patients): 2 What type of physical activity do you participate in: independent ambulation and irregular exercise Duration: 15-30 minutes/day Izabella/Jehovah'S Witness: Shinto Special izabella needs: No Seatbelt use: sometimes Working smoke detector in home: Yes Fire extinguisher in home: Yes Do you feel safe at home: Yes Do you feel safe in your relationship?: Yes Additional Social history: Lives with . since 1961. He has 5 kids, 19 grandkids and 18 great-grands. He still drives, still works. Chews regularly. Didn't know he should report any mouth sores/lumps to his PCP; explained he is at high risk for oral cancers. Denied any hallucinations today. Said the spider webs he saw were due to dirty glasses. Unclear. His speech is a bit hard to follow due to his loose dentures. Exam Narrative Exam Narrative: Const: Elderly male in NAD. HEENT: NC/AT. Clot present in the right nares. No active bleeding. No posterior oropharyngeal blood noted. Eyes: Normal conjunctiva and sclera. Neck: Supple. Trachea midline. Lungs: Normal respiratory effort. Neuro: A+O x 3. Normal speech, mentation, gait. Cranial nerves II - XII lalito ssly intact. No gross motor or sensory deficit. Skin: Warm and dry without rash. Procedures Epistaxis Control Time Out Performed: No Nostril: right Direct Inspection: yes Clots Removed by: manually Cautery Used: none Device Inserted: hemostatic balloon Patient Tolerated Procedure: well and no complications
[2020-12-14 03:50] VITALS: BP 127/66; PULSE 92; RESP 18; TEMP 36.6; O2SAT 95
[2020-12-14 04:06] VITALS: BP 113/53; PULSE 79; RESP 18; O2SAT 96
[2020-12-14] MEDS: Amoxicillin 875/Clav. 125 TAB PO (05:09)
[2020-12-14] MEDS: Amox. 875/Clav. 125, 2 TABS/BTL 1 TAB PO (05:12)
== END 2020-12-14 06:21 | disposition home or self-care (01) ==
LOC: ER 04:33
PROVIDERS: Emergency Provider Emergency Medicine; PCP Emergency Medicine
DX: R04.0 Epistaxis (principal)
CPT/HCPCS: 30901; 85652; 86140

== ENCOUNTER 2020-12-14 07:45 | Emergency (ER) | payer MEDICARE, BC, SELFPAY ==
[2020-12-14] VITALS (23 sets, daily range): BP systolic 90–119; BP diastolic 19–71; PULSE 77–119; RESP 16; TEMP 36.7; O2SAT 95–99
[2020-12-14] MEDS: Oxymetazolone 0.05% SPRAY 15 ML BTL (08:10)
--- NOTE | 2020-12-14 08:20 | W.ED.GENAD ---
Discharge Plan Disposition Patient Disposition: [facility] Condition: Improving Discharge Details Clinical Impression: Epistaxis, recurrent Primary Care Provider: Demetris Multani ED Provider: Raymon Bray Home Meds and New Rx's Prescriptions: No Action sertraline 50 mg tablet 50 mg PO DAILY Qty: 90 RF: 3 pantoprazole 40 mg tablet,delayed release (DR/EC) 40 mg PO DAILY Qty: 90 RF: 2 clopidogrel 75 mg tablet 75 mg PO DAILY Qty: 90 RF: 3 atorvastatin 40 mg tablet 40 mg PO DAILY Qty: 90 RF: 3 aspirin [Aspir-81] 81 MG tablet,delayed release (DR/EC) 2 tab PO DAILY RF: 0 amoxicillin-pot clavulanate [Augmentin] 875-125 mg tablet 1 tab PO BID Qty: 8 RF: 0 budesonide-formoterol [Symbicort] 160-4.5 mcg/actuation HFA aerosol inhaler 2 puff IH BID RF: 0 albuterol sulfate 90 mcg/actuation aerosol powdr breath activated 2 inh IH QID PRNQty: 1 RF: 0 Medical Decision Making 75-year-old male who takes aspirin and Plavix for history of coronary artery disease, cerebrovascular disease. States she has had some stuttering nosebleeds for a couple of weeks. Seen in the emergency department on December 10 with anterior cautery performed, he returned that day and a right nasal packing was placed. He was seen in clinic on the fourth with no active bleeding, followed up in ENT clinic yesterday with cautery applied to the right nare. Patient went home and early this morning had recurrent bleeding for which he was seen by Dr. Heredia approximately 5:30 AM and right 7.5 cm anterior nasal pack was placed. Patient returned went back to bed and had bleeding from both the left nare and in his posterior pharynx. He arrives with right nare pack in place, no bleeding, blood from left nare and posterior pharynx. Cotton soaked with Afrin was placed in the left nare, the patient gargle, swish and spit to clear his posterior pharynx. I subsequently placed a 7.5 cm left nasal pack with near complete cessation of bleeding. Patient IV access established, screening labs obtained. Patient's hematocrit has fallen from 35 on December 10 to 28 today. He was slightly hypotensive initially, now improving. I discussed my findings with the patients who keenly requests the patient be evaluated by otolaryngology today. I reassured her that the bilateral anterior nasal packs have ceased his bleeding, but that indeed he has had a decline in hematocrit, is slightly hypotensive, and we do not have location manager ENT available. I discussed the case with Dr. Juan, who does graciously accept the patient in transfer for consultation in conjunction with the emergency department at [facility]. I discussed specifically with the patient and his that he may be discharged from the emergency department at [facility] following otolaryngology consultation. Lab Data Lab results reviewed: Yes I reviewed the patient's lab results. Labs: Laboratory Results - last 24 hr 12/14/20 12/14/20 12/14/20 08:28 08:28 08:28 WBC 13.29 H RBC 3.09 L Hgb 9.3 L Hct 28.5 L MCV 92.2 MCH 30.1 MCHC 32.6 RDW 15.1 H Plt Count 319 MPV 9.4 Immature Gran % 0.4 Neutrophils % 73.0 Lymphocytes % 18.7 Monocytes % 6.0 Eosinophils % 1.4 Basophils % 0.5 Nucleated RBC % 0 Absolute Neutrophils 9.70 H Absolute Lymphocytes 2.49 Absolute Monocytes 0.80 Absolute Eosinophils 0.19 Absolute Basophils 0.07 PT 9.4 INR 0.9 APTT 22.2 Sodium 141 Potassium 4.1 Chloride 105 Carbon Dioxide 27.5 Anion Gap 8.5 BUN 18 Creatinine 1.3 Estimated GFR/1.73 m2 53.53 Glucose 182 H Calcium 8.3 L Total Bilirubin 0.4 AST 22 ALT 25 Alkaline Phosphatase 78 Total Protein 7.0 Albumin 3.3 L Patient ABO/Rh Antibody Screen 12/14/20 08:28 WBC RBC Hgb Hct MCV MCH MCHC RDW Plt Count MPV Immature Gran % Neutrophils % Lymphocytes % Monocytes % Eosinophils % Basophils % Nucleated RBC % Absolute Neutrophils Absolute Lymphocytes Absolute Monocytes Absolute Eosinophils Absolute Basophils PT INR APTT Sodium Potassium Chloride Carbon Dioxide Anion Gap BUN Creatinine Estimated GFR/1.73 m2 Glucose Calcium Total Bilirubin AST ALT Alkaline Phosphatase Total Protein Albumin Patient ABO/Rh A Negative Antibody Screen Negative HPI General Mode of arrival: EMS. Date/Time Provider Initiated Documentation: 12/14/20 08:00. Limitations to Documentation: no limitations. Information obtained by: patient. History of Present Illness 75 year old M presents to the emergency department with the chief complaint of Recurrent epistaxis, described as severe, Quality is described as constant, and is localized to the face and right. Patient reports no radiation. Patient started experiencing this day(s) and it has been intermittent. No relieving factors improve symptom(s), No exacerbating factors reported . Patient notes denies chest pain, nausea/vomiting and syncope. Patient did receive the following treatments prior to arrival, other (Nasal packing) Related Data Home Medications Medication Instructions Recorded Confirmed aspirin [Aspir-81] 2 tab PO DAILY 12/06/15 12/14/20 budesonide-formoterol [Symbicort] 2 puff IH BID 02/23/20 12/14/20 sertraline 50 mg tablet 50 mg PO DAILY #90 tab-cap 03/25/20 12/14/20 albuterol sulfate 2 inh IH QID PRN #1 each 05/25/20 12/14/20 pantoprazole 40 mg tablet,delayed 40 mg PO DAILY #90 tab 06/10/20 12/14/20 release clopidogrel 75 mg tablet 75 mg PO DAILY #90 tab-cap 06/14/20 12/14/20 atorvastatin 40 mg tablet 40 mg PO DAILY #90 tab-cap 07/24/20 12/14/20 amoxicillin-pot clavulanate 1 tab PO BID #8 tab 12/10/20 12/14/20 [Augmentin] Previous Rx's Medication Instructions Recorded sertraline 50 mg tablet 50 mg PO DAILY #90 tab-cap 03/25/20 albuterol sulfate 2 inh IH QID PRN #1 each 05/25/20 pantoprazole 40 mg tablet,delayed 40 mg PO DAILY #90 tab 06/10/20 release clopidogrel 75 mg tablet 75 mg PO DAILY #90 tab-cap 06/14/20 atorvastatin 40 mg tablet 40 mg PO DAILY #90 tab-cap 07/24/20 amoxicillin-pot clavulanate 1 tab PO BID #8 tab 12/10/20 [Augmentin] Allergies Allergy/AdvReac Type Severity Reaction Status Date / Time cyclobenzaprine Allergy Mild SKIN RASH Verified 12/14/20 04:05 hydrocodone Allergy SKIN RASH Verified 12/14/20 04:05 Dmaahhr-Rto-Qin Reductase AdvReac Mild Verified 12/14/20 04:05 Inhibitor doxycycline AdvReac FACIAL Verified 12/14/20 04:05 REDNESS meperidine AdvReac HANGOVER Verified 12/14/20 04:05 FEELING General Stated Complaint: Epistaxis GOOD: 3 Review of Systems Narrative: History negative Covid test. Cauterized and ENT clinic yesterday. No recent illness. 6 systems reviewed and otherwise negative. 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 dependence not interested in quitting Chronic SI joint pain COPD (chronic obstructive pulmonary disease) Depressive disorder Elevated white blood cell count, unspecified GERD (gastroesophageal reflux disease) Goals of care, counseling/discussion History of alcohol abuse sober since 1997 History of CVA (cerebrovascular accident) 2013 Hyperlipidemia Palliative care patient Right inguinal hernia (02/20/14) Right rotator cuff tear (05/02/14) Tubular adenoma of colon (09/17/17) Vertebral artery stenosis Surgical History Appendectomy (~1954) Arthroplasty of knee LEFT Carotid endarterectomy 2016 Colonoscopy - MAC (09/17/17) DR. CHUCK JIMENEZ; TUBULAR ADENOMA History of back surgery (05/02/14) Family History Mother , of cancer age 73 Personal history of malignant neoplasm Cancer Father , of [place] age 43 Heart disease Sister , had 2 sisters, one of lung cancer one of Alzheimer's disease Personal history of malignant neoplasm Cancer Dementia Brother , had 4 brothers, 2 have of lung cancer Heart disease Cancer Grandfather Acute ill-defined cerebrovascular disease Son Smoker Son Smoker Son No problems noted. Son No problems noted. Daughter Smoker Granddaughter , age 7 from ALL Leukemia, acute lymphoid Social History Smoking/Tobacco Use Status: Current every day Tobacco Type: smokeless tobacco Tobacco: How many years used: 65 Smokeless tobacco user: chewing tobacco Quit status: not considering quitting Counseling given: counseling >3 minutes Smoking risk assessment performed?: Yes Alcohol Intake: former Year quit: 1997 Counseling given: Yes Drug use: Never Substance use type: does not use Details: quit smoking 2019. Still chews daily. 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 Do you think of yourself as: straight/heterosexual Current gender identity: male What is your relationship status?: How often do you talk on the phone with friends or family?: twice per week How often do you get together with friends or relatives?: twice per week Panel score (0-1 are the most socially isolated patients): 2 What type of physical activity do you participate in: independent ambulation and irregular exercise Duration: 15-30 minutes/day Izabella/Presybeterian: Anabaptist Special izabella needs: No Seatbelt use: sometimes Working smoke detector in home: Yes Fire extinguisher in home: Yes Do you feel safe at home: Yes Do you feel safe in your relationship?: Yes Additional Social history: Lives with . since 1961. He has 5 kids, 19 grandkids and 18 great-grands. He still drives, still works. Chews regularly. Didn't know he should report any mouth sores/lumps to his PCP; explained he is at high risk for oral cancers. Denied any hallucinations today. Said the spider webs he saw were due to dirty glasses. Unclear. His speech is a bit hard to follow due to his loose dentures. Exam Narrative Exam Narrative: GEN: awake, alert, oriented 3. Pleasant, well groomed, interactive. HEAD: Normocephalic, atraumatic ENT: Mucous membranes moist, blood in posterior pharynx. Left anterior epistaxis, right nare packed, no bleeding. External ear exam unremarkable EYES: PERRL, EOMI NECK: Full ROM, no ONOFRE, no menigismus CHEST/RESP: Nontender, clear to auscultation bilateral, no wheeze/rhonchi/rales CARDIOVASCULAR: Distant, regular, no murmur, rub fatou. 2+ Rad pulse bilateral ABDOMEN: Soft, nontender, no mass. +Bowel sounds EXT: Full ROM, no edema, no rash Neuro: Grossly normal neurologic exam, conversant, interactive. Psych: Speech fluent, thoughts congruent, affect normal Course Vital Signs Vital signs: Vital Signs Temperature 36.7 C 12/14/20 07:43 Pulse 93 H 12/14/20 07:43 Respiratory Rate 16 12/14/20 07:43 Blood Pressure 97/58 L 12/14/20 07:43 Pulse Oximetry 98 12/14/20 07:43 Temperature 36.7 C 12/14/20 07:43 Temperature Source Skin 12/14/20 07:43 Pulse 93 H 12/14/20 07:43 Respiratory Rate 16 12/14/20 07:43 Respiratory Effort Non-Labored 12/14/20 07:43 Blood Pressure 97/58 L 12/14/20 07:43 Blood Pressure Position Sitting 12/14/20 07:43 Pulse Oximetry 98 12/14/20 07:43 End Tidal Co2 0 12/14/20 07:43 Procedures Epistaxis Control Time Out Performed: Yes Nose Prepped With: phenylephrine Direct Inspection: unable to visualize Device Inserted: nasal tampon Device Size: 75 Patient Tolerated Procedure: well
[2020-12-14 08:41] LABS: Abs Immature Grans 0.05 10^3/uL (0.0-0.06); Absolute Basophil Count 0.07 10^3/uL (0.0-0.2); Basophils % 0.5; Eosinophils % 1.4; HCT 28.5 % (40.0-50.0); HGB 9.3 g/dL (13.5-17.5); Immature Grans % 0.4; Lymphocytes % 18.7; MCH 30.1 pg (27.0-33.0); MCHC 32.6 % (32.0-36.0); MCV 92.2 fL (80-95); MPV 9.4 fL (8.0-11.0); Nucleated RBC 0 %; Platelet Count 319 10^3/uL (130-400); RBC 3.09 10^6/uL (4.36-5.78); RDW 15.1 % (11.8-14.1); RDW-SD 50.4 fL; WBC 13.29 10^3/uL (4.4-10.8)
[2020-12-14] MEDS: Normal Saline 1,000 ML 75 ML IV (08:42)
[2020-12-14 08:43] LABS: Absolute Eosinophil Count 0.19 10^3/uL (0.0-0.7); Absolute Lymphocyte Count 2.49 10^3/uL (1.2-3.4)
[2020-12-14 08:49] LABS: INR 0.9 (0.9-1.1); PTT Activated 22.2 sec (21.0-27.5); Prothrombin Time 9.4 sec (9.3-11.0)
[2020-12-14 08:50] LABS: ALT 25 U/L (16-63); AST 22 U/L (15-37); Albumin 3.3 g/dL (3.4-5.0); Alkaline Phosphatase 78 U/L (46-116); Anion Gap 8.5 mmol/L (3-11); BUN 18 mg/dL (7-18); Bilirubin, Total 0.4 mg/dL (0.2-1.0); CO2 27.5 mmol/L (21.0-32.0); CREATININE 1.3 mg/dL (0.70-1.30); Calcium 8.3 mg/dL (8.5-10.1); Chloride 105 mmol/L (98-107); Estimated GFR 53.53 (mL/min/1.73m2); Glucose 182 mg/dL (74-106); Potassium 4.1 mmol/L (3.5-5.1); Sodium 141 mmol/L (136-145)
--- NOTE | 2020-12-14 10:08 | NUR.NOTE ---
Nursing Note: Spoke with the , Earlene and notified her that the patient was currently leaving the ED via EMS. Akilah Bautista
== END 2020-12-14 10:10 | disposition short-term general hospital (02) ==
PROVIDERS: Emergency Provider Emergency Medicine; PCP Emergency Medicine
DX: R04.0 Epistaxis (principal)
CPT/HCPCS: 30901; 36415; 80053; 86850; 86900; 86901; 99285; 85025; 85610; 85730; 99282

== ENCOUNTER 2020-12-23 16:02 | Outpatient (REF) | payer MEDICARE, BC, SELFPAY ==
[2020-12-23 16:46] LABS: HCT 31.4 % (40.0-50.0); HGB 10.1 g/dL (13.5-17.5)
== END 2020-12-23 16:03 | disposition home or self-care (01) ==
LOC: LBN 16:02
PROVIDERS: PCP Emergency Medicine; Visit Provider Emergency Medicine
DX: R04.0 Epistaxis (principal)
CPT/HCPCS: 85014; 85018

== ENCOUNTER 2021-01-15 03:09 | Outpatient (CLI) | payer MEDICARE, BC, SELFPAY ==
[2021-01-15 11:38] LABS: HGB 10.5 g/dL (13.5-17.5); MCHC 31.8 % (32.0-36.0); MPV 9.4 fL (8.0-11.0); Platelet Count 426 10^3/uL (130-400); RBC 3.75 10^6/uL (4.36-5.78); RDW 15.3 % (11.8-14.1); RDW-SD 49.1 fL; WBC 10.86 10^3/uL (4.4-10.8)
== END 2021-01-15 03:10 | disposition home or self-care (01) ==
LOC: LOS 03:09
PROVIDERS: PCP Emergency Medicine; Visit Provider Emergency Medicine
DX: R04.0 Epistaxis (principal)
CPT/HCPCS: 36415; 85027

== ENCOUNTER 2021-01-24 09:08 | Outpatient (CLI) | payer MEDICARE, BC, SELFPAY ==
--- NOTE | 2021-01-24 09:14 | DI.RAD_ITS ---
EXAM: XR HIP RT COMPLETE AP PELVIS CLINICAL HISTORY: R hip pain. TECHNIQUE: 2D digital imaging was performed. COMPARISON: No exams were available for comparison FINDINGS: Mild degenerative changes are seen in the hips. No acute fracture or dislocation is present. No myles picious lytic or sclerotic lesions are seen. Vascular calcifications are present. IMPRESSION: Mild degenerative changes in the hips. DATA REPOSITORY: RADIATION DOSE DELIVERED:
--- NOTE | 2021-01-24 09:15 | DI.RAD_ITS ---
EXAM: XR LUMBAR SPINE COMPLETE CLINICAL HISTORY: back pain. TECHNIQUE: 2D digital imaging was performed. COMPARISON: No exams were available for comparison FINDINGS: There are 5 lumbar type vertebral bodies. Postsurgical changes are seen at the L4-5 level. No spond ylolysis or spondylolisthesis is present. There is disc space narrowing at L3-4 and L4-L5. Endplate osteophytes are seen throughout the lumbar spine. No acute fracture or subluxation. Extensive vasc ular calcification is present. 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 DATA REPOSITORY: RADIATION DOSE DELIVERED:
== END 2021-01-24 09:09 | disposition home or self-care (01) ==
PROVIDERS: PCP Emergency Medicine; Referring Provider Emergency Medicine; Visit Provider Student in an Organized Health Care Education/Training Program
DX: M54.16 Radiculopathy, lumbar region (principal); M54.5 Low back pain; M51.36 Other intervertebral disc degeneration, lumbar region; M25.551 Pain in right hip; M16.11 Unilateral primary osteoarthritis, right hip
CPT/HCPCS: 99213; 72110; 73502

== ENCOUNTER 2021-02-13 02:21 | Outpatient (CLI) | payer MEDICARE, BC, SELFPAY ==
--- NOTE | 2021-02-13 07:00 | DI.MRI_ITS ---
Exam(s) MR LUMBAR SPINE WO EXAM: MR LUMBAR SPINE WO CLINICAL HISTORY: back pain, lumbar radiculopathy,m54.16. TECHNIQUE: Multiplanar multisequence MRI was performed. CR XR LUMBAR SPINE COMPLETE from 01/24/2021 FINDINGS: MR examination of the lumbosacral spine was performed according to the usual protocol. Note is made of prior surgical procedure at L4-[address] in place in the posterior paraspinal region at the level of the spinous processes and lamina of L4 and L5. Deformity of the contour of the L4-5 intervertebral disc is also noted which may represent prior vertebroplasty. No other significant bony findings apart from moderate hypertrophic degenerative changes of the facet joints of the mid to lower lumbar spine. Conus medullaris appears intact. There are tangled nerve roots present in the spinal canal from the L1 through the L 3 level presumably secondary to spinal stenosis at L 3 4. No significant abnormalit ies of the intervertebral discs is noted from T10-11 through L1-L2. There is a mild disc bulge witho ut significant disc herniation at L 2 3. At L3-4, axial views are obscured by artifact from metallic fixation devices. There is an apparent s evere central canal spinal stenosis at this level. No gross focal disc herniation identified althoug h there is a moderate disc bulge. There is severe left-sided neural foraminal stenosis at this level . At L4-5 there is a moderate disc bulge. There is significant limitation of visualization of the disc margin secondary to metallic artifact but there does appear to be mild central canal spinal stenosis . There is severe right lateral neural foraminal stenosis at this level At L5-S1 there is a slight disc bulge. There is no evidence of central canal spinal stenosis, neural foraminal stenosis, or disc herniation. IMPRESSION: Severe central canal spinal stenosis at L3-4. Left-sided neural foraminal stenosis also noted. Moderate central canal spinal stenosis at L4-5. right-sided neural foraminal stenosis also noted at L 4-5. Prior surgical procedure noted at L4-5. DATA REPOSITORY:
== END 2021-02-13 02:41 ==
PROVIDERS: PCP Emergency Medicine; Visit Provider Student in an Organized Health Care Education/Training Program
DX: M54.16 Radiculopathy, lumbar region (principal); M48.061 Spinal stenosis, lumbar region without neurogenic claudication
CPT/HCPCS: 72148

== ENCOUNTER 2021-05-05 09:27 | Outpatient (CLI) | payer MEDICARE, BC, SELFPAY ==
--- NOTE | 2021-05-05 08:30 | DI.RAD_ITS ---
Exam(s) XR HAND LT COMPLETE EXAM: XR HAND LT COMPLETE CLINICAL HISTORY: mass of left hand. TECHNIQUE: 2D digital imaging was performed. COMPARISON: CR XR THUMB LT from 05/03/2020 FINDINGS: There is no evidence of fracture nor dislocation or abnormal soft tissue calcifications. No osseous lesions nor erosions. No radiopaque foreign body. On the lateral view there is a focal soft tissue protrusion dorsally at the level of the metacarpopha langeal joint, probably over the 4th finger. There are no calcifications seen within this soft tissu e finding. IMPRESSION: DATA REPOSITORY: RADIATION DOSE DELIVERED:
== END 2021-05-05 09:28 | disposition home or self-care (01) ==
LOC: DIORS 09:27
PROVIDERS: PCP Emergency Medicine; Referring Provider Emergency Medicine; Visit Provider Student in an Organized Health Care Education/Training Program
DX: R22.32 Localized swelling, mass and lump, left upper limb (principal); L72.0 Epidermal cyst
CPT/HCPCS: 99214; 73130

== ENCOUNTER 2021-05-07 08:31 | Day surgery (SDC) | payer MEDICARE, BC, SELFPAY ==
--- NOTE | 2021-05-07 08:30 | W.PM.DSUDISC ---
Documented by User: HUANG Elias 05/07/21 08:37 Discharge Plan Disposition Patient Disposition: HOME Condition: Good Discharge Details Reason For Visit: Excision cyst LMF Attending Provider: Neeraj Saxena Primary Care Provider: Demetris Multani Home Meds and New Rx's Prescriptions: New ibuprofen 600 mg tablet 600 mg PO TID PRN (Reason: pain) Qty: 30 RF: 0 acetaminophen 500 mg capsule 1,000 mg PO Q8H PRN PRNQty: 90 RF: 0 Continued clopidogrel 75 mg tablet 75 mg PO DAILY Qty: 90 RF: 3 atorvastatin 40 mg tablet 40 mg PO DAILY Qty: 90 RF: 3 Incruse Ellipta 62.5 mcg/actuation blister with device 1 inh inhalation DAILY Qty: 30 RF: 6 pantoprazole 40 mg tablet,delayed release (DR/EC) 40 mg PO DAILY Qty: 90 RF: 2 sertraline 50 mg tablet 50 mg PO DAILY Qty: 90 RF: 3 aspirin [Aspir-81] 81 MG tablet,delayed release (DR/EC) 2 tab PO DAILY RF: 0 budesonide-formoterol [Symbicort] 160-4.5 mcg/actuation HFA aerosol inhaler 2 puff IH BID RF: 0 albuterol sulfate 90 mcg/actuation aerosol powdr breath activated 2 inh IH QID PRNQty: 1 RF: 0 Discharge Instructions Additional Instructions: Excision Cyst Discharge Instructions Activity: You may use the finger and hand for light activities for the first week, avoiding rigorous use or heavy lifting or gripping. Dressing: You may remove the dressing after 48 hours. You may cover the incision with a large Band-Aid after that. Medications: - You should take Tylenol and Ibuprofen for baseline pain control. - You may apply ice over the finger/hand. Follow-up: 7-10 days Referrals: Neeraj Saxena MD [ [facility] STAFF PHYSICIAN] - Activity:: Activity as Tolerated Remove Dressings/Wound Care:: 48 hours Shower/Bathe:: 48 hours Diet:: As Tolerated Discharge Orders Discharge Orders: Discharge Order (Routine); Ordered 05/07/21 Ordered By: Terrence Yun Documented by User: Neeraj Saxena MD 05/07/21 10:05 Discharge Plan Disposition Patient Disposition: HOME Condition: Good Discharge Details Reason For Visit: Excision cyst LMF Attending Provider: Neeraj Saxena Primary Care Provider: Demetris Multani Home Meds and New Rx's Prescriptions: New ibuprofen 600 mg tablet 600 mg PO TID PRN (Reason: pain) Qty: 30 RF: 0 acetaminophen 500 mg capsule 1,000 mg PO Q8H PRN PRNQty: 90 RF: 0 Continued clopidogrel 75 mg tablet 75 mg PO DAILY Qty: 90 RF: 3 atorvastatin 40 mg tablet 40 mg PO DAILY Qty: 90 RF: 3 Incruse Ellipta 62.5 mcg/actuation blister with device 1 inh inhalation DAILY Qty: 30 RF: 6 pantoprazole 40 mg tablet,delayed release (DR/EC) 40 mg PO DAILY Qty: 90 RF: 2 sertraline 50 mg tablet 50 mg PO DAILY Qty: 90 RF: 3 aspirin [Aspir-81] 81 MG tablet,delayed release (DR/EC) 2 tab PO DAILY RF: 0 budesonide-formoterol [Symbicort] 160-4.5 mcg/actuation HFA aerosol inhaler 2 puff IH BID RF: 0 albuterol sulfate 90 mcg/actuation aerosol powdr breath activated 2 inh IH QID PRNQty: 1 RF: 0 Discharge Instructions Additional Instructions: Excision Cyst Discharge Instructions Activity: You may use the finger and hand for light activities for the first week, avoiding rigorous use or heavy lifting or gripping. Dressing: You may remove the dressing after 48 hours. You may cover the incision with a large Band-Aid after that. Medications: - You should take Tylenol and Ibuprofen for baseline pain control. - You may apply ice over the finger/hand. Follow-up: 7-10 days Referrals: Neeraj Saxena MD [ [facility] STAFF PHYSICIAN] - Activity:: Activity as Tolerated Remove Dressings/Wound Care:: 48 hours Shower/Bathe:: 48 hours Diet:: As Tolerated Discharge Orders Discharge Orders: Discharge Order (Routine); Ordered 05/07/21 Ordered By: Terrence Yun
[2021-05-07 08:39] VITALS: BP 126/70; PULSE 67; RESP 16; TEMP 36.3; O2SAT 98
[2021-05-07] MEDS: Sodium Bicarbonate 50 MEQ/50 ML VIAL (09:32)
--- NOTE | 2021-05-07 09:43 | SKI_PTH ---
PATIENT: Leisa Ames LOC: [facility] U#:[id number] AGE/SX: 75/M ROOM: RE05/07/[address]: Neeraj Saxena MD : 1945 BED: DIS: 05/07/2021 SPEC #: [id number] RECD: 05/07/21 12:53 STATUS: JULIÁN REQ #: [id number] SOLIS: 05/07/21 09:[address]: Neeraj Saxena DEPT: Surgical Specimen RECD BY: Nimisha Stafford ENTERED: 05/07/21 12:53 SP TYPE: ANTHONY WEBB DR: Demetris Multani DO Tissues: 1 - SKIN BIOPSY(SHAVE/PUNCH) Procedures: GROSS AND MICRO LEVEL 4 Comments: [id number]
[2021-05-07 10:00] VITALS: BP 125/67; PULSE 67; RESP 16; TEMP 36.1; O2SAT 98
--- NOTE | 2021-05-07 12:22 | W.PM.OP ---
Date of service: 05/07/21 Time of Service: 09:41 Operative Note Operative Note DATE OF PROCEDURE: 05/07/21 PRE-OP DIAGNOSIS: Left Dorsal Hand/Middle Finger Mass POST-OP DIAGNOSIS: same PROCEDURE: Wide Excisional Biopsy of Left Hand Mass SURGEON: Neeraj Saxena ANESTHESIA TYPE: Local By Surgeon Refer to Anesthesia Record ESTIMATED BLOOD LOSS: 5 PATHOLOGY: other (Dorsal hand mass was sent to pathology.) TOURNIQUET TIME: 0 COMPLICATIONS: None Patient was transported to: same day Patient's condition: stable Indications: Leisa is a 75-year-old who presented to the office with a mass about the dorsum aspect of the left hand. He was unsure how this started but seem to be getting larger and was causing significant dysfunction as he was hitting on objects causing it to bleed at times. He did not cause pain except when he had direct pressure to it. It was superficial and mobile and did not have calcifications on the x-ray. Given his prominence elected to be removed. I had a long discussion about treatment options. The potential diagnosis was an inclusion cyst versus other hand mass, including squamous cell carcinoma, malignant disease. I discussed treatment options including further imaging or proceeding with an excisional biopsy. He elected to proceed with the biopsy as the mass itself is causing him dysfunction. I reviewed the risk of the procedure to include bleeding, infection, pain, stiffness, recurrence, need for repeat procedures, damage to nerves and vessels, damage to muscles and tendons. Despite these risks, he elected to proceed. Findings: The mass over the dorsal aspect of the left hand at the level of the middle finger MP joint appear to be solid and not have any components which appear to be an inclusion cyst. It was superficial but was excised widely with surrounding skin. It was easily from the deeper tissues and had no significant vascular contribution. The mass was sent to pathology in whole and the skin was closed primarily. Procedure Description: Leisa was greeted in the preoperative holding area. His identity was confirmed the correct side was identified and marked. The consent was reviewed the patient and signed. He was taken to the operating room placed in supine position with the left hand on a hand table. The left hand was prepped with ChloraPrep and draped in standard fashion. A timeout was performed for safe surgery. No prophylactic biotics were administered given the clean and elective nature of this procedure. A large field type block was then administered surrounding the mass but not directly into the mass or on it. This was done with buffered 1% lidocaine with epinephrine. Once this set up, I then made a small incision directly over the dorsum of the mass. I went through the skin and deep incision did not find any cyst capsule but yet some solid material. Therefore, I stopped with this incision and proceeded with a wide excisional biopsy with the concerned this may represent something more ominous. I made an elliptical type incision around the mass extending proximally and distally. I did hug the contour of the mass over it radial and ulnar aspects to allow primary closure of the skin. This was taken sharply through the skin and subtenons tissues. Using a bipolar cautery I was able to easily dissect the mass off of the deeper tissues. There is no penetration to the fascia. There is no adherence to the deeper tissues. There is no apparent vascular contribution. This was removed in whole and then sent to pathology. Any bleeding was cauterized with bipolar electrocautery. The wound was irrigated. There is no remnant mass seen. The deeper tissues were then reapproximated with a 3-0 Vicryl. The skin was closed with 4-0 nylon. The skin was able to be closed without tension. The wound was then dressed with 4 x 4's, conform dressing. The end the case all counts are correct. He tolerated the procedure well. The mass was sent to pathology for further studies and investigation.
== END 2021-05-07 10:40 | disposition home or self-care (01) ==
PROVIDERS: PCP Emergency Medicine; Visit Provider Student in an Organized Health Care Education/Training Program
PROC: (CPT 26160; principal; 2021-05-07 10:00)
DX: C44.629 Squamous cell carcinoma of skin of left upper limb, including shoulder (principal)
CPT/HCPCS: 11620; 88305

== ENCOUNTER → 2021-05-15 10:30 | Outpatient (BNVA) | payer MEDICARE, BC, SELFPAY | PROVIDERS: PCP Emergency Medicine; Referring Provider Emergency Medicine | DX: Z47.89 Encounter for other orthopedic aftercare (principal); C44.629 Squamous cell carcinoma of skin of left upper limb, including shoulder ==

== ENCOUNTER 2021-05-16 09:53 | Day surgery (SDC) | payer MEDICARE, BC, SELFPAY ==
[2021-05-16 10:14] VITALS: BP 146/78; PULSE 75; RESP 16; TEMP 36.1; O2SAT 98
--- NOTE | 2021-05-16 10:20 | W.ANESPRE ---
General Info Date of Service Date Performed: 05/16/21 Height: 5 ft 7 in Weight: 82.1 kg Body Mass Index (BMI): 28.3 Surgical Procedure: Operation Date: 05/16/21 12:40 Proposed Procedures Side Surgeon p Cataract Extraction with IOL Implant Left Gato Santos MD Meds Allergies and Home Medications Allergies Allergy/AdvReac Type Severity Reaction Status Date / Time cyclobenzaprine Allergy Mild SKIN RASH Verified 05/16/21 10:07 hydrocodone Allergy SKIN RASH Verified 05/16/21 10:07 Cqolpuo-[id number]-Mqf Reductase AdvReac Mild Verified 05/16/21 10:07 Inhibitor doxycycline AdvReac FACIAL Verified 05/16/21 10:07 REDNESS meperidine AdvReac HANGOVER Verified 05/16/21 10:07 FEELING Home Medication Medication Instructions Recorded aspirin [Aspir-81] 2 tab PO DAILY 12/06/15 albuterol sulfate 2 inh IH QID PRN #1 each 05/25/20 clopidogrel 75 mg tablet 75 mg PO DAILY #90 tab-cap 06/14/20 atorvastatin 40 mg tablet 40 mg PO DAILY #90 tab-cap 07/24/20 umeclidinium 62.5 mcg/actuation 1 inh INHALATION DAILY #30 ea 01/14/21 blister powder for inhalation pantoprazole 40 mg tablet,delayed 40 mg PO DAILY #90 tab 03/21/21 release sertraline 50 mg tablet 50 mg PO DAILY #90 tab-cap 04/04/21 ferrous sulfate [iron] 325 mg PO DAILY 05/16/21 Current Visit Medications: Current Medications Generic Name Dose Route Start Last Admin Trade Name Freq PRN Reason Stop Dose Admin Acetaminophen 1,000 mg 05/16/21 06:00 Acetaminophen 500 Mg Tab PO Q4H PRN PRN Miscellaneous Medication 0 ml 05/16/21 06:00 Prednisolone 1%, Moxifloxacin 0.5%, Nepafenac 0.1% 5ml Btl OS DIRECTED [facility] Miscellaneous Medication 0 ml 05/16/21 06:00 Tropicam./Phenyleph. (1/2.5%) 5 Ml Btl OS DIRECTED CHERYL Tetracaine HCl 0 ml 05/16/21 06:00 Tetracaine 0.5% 4 Ml Btl OS DIRECTED [facility] PFSH Active Problems Active Problems: Problem Status Onset Code Squamous cell carcinoma Inclusion cyst L72.0 Lumbar radiculopathy, right M54.16 Epistaxis R04.0 Epistaxis, recurrent R04.0 Chronic SI joint pain M53.3, G89.29 Elevated white blood cell count, unspecified D72.829 Goals of care, counseling/discussion Z71.89 Chewing tobacco nicotine dependence F17.220 History of alcohol abuse F10.11 Palliative care patient Z51.5 Nuclear sclerotic cataract of left eye H25.12 Cortical cataract of left eye H26.9 Community acquired pneumonia J18.9 Breath shortness R06.02 Sciatica neuralgia M54.30 Copy of advanced directive obtained Z78.9 CAP (community acquired pneumonia) J18.9 Bursitis of right shoulder M75.51 Impingement syndrome of right shoulder M75.41 Cervical neuropathy G54.2 Tendonitis of long head of biceps brachii of right shoulder M75.21 Sprain of right shoulder S43.401A Fall W19.XXXA Actinic keratosis L57.0 Alcohol abuse F10.10 Chest pain 09/09/04 R07.9 Fatigue R53.83 History of appendectomy Z90.49 History of arthroscopy of knee Z98.890 Indigestion K30 Pancreatitis 09/09/96 K85.90 Polyp of colon 11/20/11 K63.5 Right inguinal hernia 02/20/14 K40.90 History of back surgery 05/02/14 Z98.890 Tubular adenoma of colon 09/17/17 D12.6 Smoker F17.200 Right rotator cuff tear 05/02/14 M75.101 Leukocytosis 10/31/14 D72.829 GERD (gastroesophageal reflux disease) K21.9 Deviated nasal septum J34.2 Depressive disorder F32.9 Dental caries K02.9 Cerebrovascular accident (CVA) due to embolism of carotid artery 01/10/16 I63.139 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 Anxiety about health 02/27/15 F41.8 Vertebral artery stenosis I65.09 Hyperlipidemia E78.5 COPD (chronic obstructive pulmonary disease) J44.9 Carotid stenosis, bilateral I65.23 Medical History Medical History CAD (coronary artery disease) Carotid stenosis, bilateral 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 dependence not interested in quitting Chronic SI joint pain COPD (chronic obstructive pulmonary disease) Depressive disorder Elevated white blood cell count, unspecified Foreign body of left hand GERD (gastroesophageal reflux disease) Goals of care, counseling/discussion History of alcohol abuse sober since 1997 History of CVA (cerebrovascular accident) 2014 Hyperlipidemia Palliative care patient Right inguinal hernia (02/20/14) Right rotator cuff tear (05/02/14) Squamous cell carcinoma Left middle finger Excision and biopsy DOS: 05/07/2021 Tubular adenoma of colon (09/17/17) Vertebral artery stenosis Surgical History Surgical History Appendectomy (~1954) Arthroplasty of knee LEFT Carotid endarterectomy 2016 Colonoscopy - MAC (09/17/17) DR. CHUCK JIMENEZ; TUBULAR ADENOMA History of back surgery (05/02/14) Inclusion cyst LMF S/P Excision: 05/07/2021 Biopsy was positive for squamous cell carcinoma Tobacco Smoking/Tobacco Use Status: Current every day Tobacco Type: smokeless tobacco Tobacco: How many years used: 65 Smokeless tobacco user: chewing tobacco Quit Status: not considering quitting Counseling given: counseling >3 minutes Alcohol Alcohol Intake: former Year quit: 1997 Counseling given: Yes Substance Use Substance use: Never Substance use type: does not use Details: quit smoking 2019. Still chews daily. Vital Signs and Lab Results Vital Signs Most Recent Vital Signs in EMR: Most Recent Vital Signs Temp Pulse Resp BP Pulse Ox 36.1 C L 75 16 146/78 H 98 05/16/21 10:14 05/16/21 10:14 05/16/21 10:14 05/16/21 10:14 05/16/21 10:14 Lab Results Blood Type / Crossmatch: No Data to Display Complete Blood Count: No Data to Display Complete Metabolic Panel: No Data to Display Liver Function Panel: No Data to Display Coagulation Panel: No Data to Display Cardiac Panel: No Data to Display Arterial Blood Gas: No Data to Display Venous Blood Gas: No Data to Display Pancreas Panel: No Data to Display Thyroid Panel: No Data to Display Infectious Disease: No Data to Display Blood Cultures: No Data to Display Toxicology Panel: No Data to Display Imaging and Studies Imaging and Studies EKG Summary: DATE/TIME OF SERVICE: 10/14/20 HR:93 bpm Conclusion Sinus rhythm...normal P axis, V-rate 60- 99 Stress Test Summary: Date of Exam: 07/10/13 EJECTION FRACTION: 62% GATED WALL MOTION: Small to moderate size, mild to moderate intensity, fixed inferoapical defect. CONCLUSION: Negative for ischemia. Echocardiogram Summary: Date of study: 12/11/2015 Summary: 1. Left ventricle: The cavity size was normal. Wall thickness was normal. Systolic function was normal. The estimated ejection fraction was 60-65%. Wall motion was normal; there were no regional wall motion abnormalities. 2. Mitral valve: Mild regurgitation. 3. Right ventricle: The cavity size was normal. Wall thickness was normal. Systolic function was normal. 4. Right atrium: The atrium was mildly dilated. 5. Atrial septum: No defect or patent foramen ovale was identified. 6. Tricuspid valve: Mild-moderate regurgitation. 7. Pulmonary arteries: Pulmonary systolic pressure was in the range of 15mm Hg to 25mm Hg. 8. Inferior vena cava: The vessel was normal in size; the respirophasic diameter changes were in the normal range (greater than or equal to 50%); findings are consistent with normal central venous pressure. Anesthesia Assessment and Plan Anesthesia History Personal History: No History of Anesthesia Complications Family History: No Family History of Anesthesia Complications Exercise Tolerance Exercise Tolerance: Metabolic Equivalents<4 Pertinent Negatives Pertinent Negatives: No Symptoms of GERD Cardiac & Pulmonary Exam Cardiac Exam: Normal S1/S2 Heart Sounds Pulmonary Exam: Clear Bilateral Breath Sounds Airway Exam Known Difficult Airway: No Mallampati Class: 2 Mouth Opening: Normal (> 3cm) Thyromental Distance: Greater than 3 cm Neck Range of Motion: Full ROM Neck Circumference: Normal Teeth Condition: Removable Dentures/Plates Upper and Removable Dentures/Plates Lower ASA Classification ASA Score: ASA 3 Emergency Case?: No NPO Status NPO Status: NPO Clears >2 hours, Solids >8 hours Anesthesia Plan Resuscitation Status: Full Code Anesthesia Technique: MAC Anesthesia Airway Planned: Natural Airway Monitors Used: Standard Monitors
[2021-05-16] MEDS: Tropicam./Phenyleph. (1/2.5%) 5 ML BTL OS ×3 (10:21→10:31)
[2021-05-16 10:28] VITALS: BMI 28.3
[2021-05-16] MEDS: Tetracaine 0.5% 4 ML BTL OS (11:22)
[2021-05-16] MEDS: Balanced Salt Soln.-PLUS 500 ML BAG (11:23)
[2021-05-16] MEDS: Duovisc Viscoelastic System EACH 1 EACH (11:23)
[2021-05-16] MEDS: Lidocaine 2% Jelly 6 ML SYR (11:24)
[2021-05-16] MEDS: Lidocaine 1% Pres-Free 5 ML VIAL (11:24)
[2021-05-16] MEDS: Povidone-Iodine Ophth 30 ML BTL (11:26)
--- NOTE | 2021-05-16 11:48 | W.PM.DSUDISC ---
Discharge Plan Disposition Patient Disposition: HOME Condition: Good Discharge Details Attending Provider: Gato Santos Primary Care Provider: Demetris Multani Home Meds and New Rx's Prescriptions: No Action clopidogrel 75 mg tablet 75 mg PO DAILY Qty: 90 RF: 3 atorvastatin 40 mg tablet 40 mg PO DAILY Qty: 90 RF: 3 Incruse Ellipta 62.5 mcg/actuation blister with device 1 inh inhalation DAILY Qty: 30 RF: 6 pantoprazole 40 mg tablet,delayed release (DR/EC) 40 mg PO DAILY Qty: 90 RF: 2 sertraline 50 mg tablet 50 mg PO DAILY Qty: 90 RF: 3 aspirin [Aspir-81] 81 MG tablet,delayed release (DR/EC) 2 tab PO DAILY RF: 0 ferrous sulfate [iron] 325 mg (65 mg iron) Tablet 325 mg PO DAILY RF: 0 albuterol sulfate 90 mcg/actuation aerosol powdr breath activated 2 inh IH QID PRNQty: 1 RF: 0 Discharge Instructions Stand Alone Forms: Post-op Topical Cataract, Yovani Seymour (DSU) Discharge Orders Discharge Orders: Discharge Order (Routine); Ordered 05/16/21 Ordered By: Gato Santos DS: Diagnosis Discharge Diagnosis (1) Cortical cataract of left eye: Status: Resolved (2) Nuclear sclerotic cataract of left eye: Status: Resolved
--- NOTE | 2021-05-16 11:49 | ROE_ITS ---
Date of service: 05/16/21 Time of Service: 11:49 Operative Note Operative Note DATE OF PROCEDURE: 05/16/21 PRE-OP DIAGNOSIS: Nuclear/cortical cataract, left eye POST-OP DIAGNOSIS: same PROCEDURE: Cataract extraction using phacoemulsification with intraocular lens implant, left eye SURGEON: Gato Santos ANESTHESIA TYPE: Local By Surgeon and MAC Refer to Anesthesia Record PATHOLOGY: none sent COMPLICATIONS: None Patient was transported to: same day Patient's condition: stable Implants: Manfred and Manfred / [employer] Tecnis [id number] Indications: Progressive decreased vision due to cataract, left eye, with poor red reflex Procedure Description: CATARACT SURGERY OPERATIVE REPORT PREOPERATIVE DIAGNOSIS: 1. Nuclear/cortical cataract, left eye POSTOPERATIVE DIAGNOSIS: Same OPERATION: 1. Cataract extraction using phacoemulsification with posterior chamber intraocular lens implant, left eye. IOL: IOL Aircraft Mechanic/Model: Manfred & Manfred / JAKE Tecnis [id number] IOL Power: + 22.5 diopters IOL Serial Number: [id number] Optic Diameter: 6.0 mm Haptic/Overall Diameter: 13.0 mm PHACO INFO: Lloyd [employer]ion Vision System with OZil and Active Fluidics Cumulative Dispersed Energy (CDE): 8.53 seconds SURGEON: Gato Santos MD, JULIO CESAR ANESTHESIA: Monitored A [facility] (MAC), with local sub-tenon's anesthetic infiltration COMPLICATIONS: None SPECIMENS: None INDICATIONS FOR PROCEDURE: The patient is a 75-year-old gentleman with history of diminished visual acuity in his left eye secondary to the development of nuclear and cortical cataract. The option of cataract surgery was offered to the patient and he wished to proceed. PROCEDURE: The correct surgical eye was identified and marked as the left eye and the pupil was dilated in the preoperative area using mydriatics and cy cloplegics. The dilated pupil size was 6.5 mm. He elected to proceed without oral sedation. The patient was brought to the operating room where cardiopulmonary monitoring was instituted and surgical time-out was performed, confirming the correct operative eye and IOL power. Topical anesthesia was administered and ophthalmic povidone-iodine 5% was instilled into the conjunctival fornices. Lidocaine gel was applied to the cornea and the caridad-ocular area was prepped with Betadine 10% solution and draped in the usual sterile fashion for intraocular surgery, including an aperture drape. A Tegaderm transparent film dressing was cut in half and used to cover the lashes and lid margins. Care was taken to sequester the lashes and lid margins under the Tegaderm dressing. A lid speculum was placed between the lids of the operative eye and the Avinash-Axel operating microscope was maneuvered into position. Gladys scissors were then used to make a conjunctival buttonhole approximately 6mm posterior to the limbus in the inferonasal quadrant. Blunt dissection was carried out to expose bare sclera, and a blunt-tipped sub-tenon?s anesthesia cannula was introduced and passed posteriorly along the globe where non- preserved plain lidocaine was injected into posterior sub-Tenon?s space. A sideport knife was used to make a paracentesis port superiorly/superiortemporally. Intraocular phenylephrine/lidocaine was injected int the anterior chamber.. Air was then injected into the anterior chamber, followed by Vision Blue, which was painted over the anterior capsule and then irrigated out using BSS. The anterior chamber was filled with viscoelastic. A 2.4mm keratome knife was used to create a half-thickness groove at the limbus and then to construct a three-plane near-clear corneal tunnel extending 2.0mm into clear cornea at the 3:00 position. A flap was raised on the anterior capsule and capsulorhexis forceps were used to complete a continuous curvilinear capsulorhexis of 5.5 mm. Balanced salt solution was then used to perform cortical cleaving hydrodissection and nuclear hydrodelineation until the lens could be freely rotated within the capsular bag. The lens nucleus was then disassembled and removed within the capsular bag and iris plane using phacoemulsification. Residual cortical material was removed using the 45-degree angled silicone I/A tip with 0.3mm port. The posterior capsule was carefully polished to remove as much residual lens epithelial cells as safely possible. The capsular bag was then inflated and the anterior chamber deepened with viscoelastic. The lens implant described above was inserted into the capsular bag using the JAKE [place] Injector. A Kuglen hook was used to dial the IOL into position. Residual viscoelastic was then removed first from posterior to the IOL, then from the anterior chamber using the I/A handpiece. The lens implant was noted to center nicely within the capsular bag. The incisions were stromally hydrated, and the anterior chamber was reformed using BSS. Then 0.5cc of moxifloxacin 1.0mg/ml were injected into the capsular bag and anterior chamber. The incisions were checked with a Weck spear and found to be secure. Several drops of ophthalmic povidone-iodine 5% were then applied to the eye followed by two drops of Imprimis combination prednisolone/moxifloxacin/nepafenac solution. The drapes were removed and a clear plastic protective eye shield was placed over the eye. The patient was then returned to Same Day Surgery in stable condition.
[2021-05-16 11:50] VITALS: BP 122/73; PULSE 68; RESP 16; TEMP 36.3; O2SAT 100
--- NOTE | 2021-05-16 13:03 | W.ANESPOSTOP ---
Postoperative Evaluation Date, Time and Location Date Performed: 05/16/21 Time Performed: 11:55 Patient Location: Day Surgery Unit Vital Signs Most Recent Imported Vital Signs: Most Recent Vital Signs Temp Pulse Resp BP Pulse Ox 36.3 C L 68 16 122/73 100 05/16/21 11:50 05/16/21 11:50 05/16/21 11:50 05/16/21 11:50 05/16/21 11:50 Pain Score Most Recent Pain Score: Most Recent Pain Score Pain Level 0 05/16/21 11:50 Assessment Mental Status: Awake (Alert & Oriented to Patient Baseline) Airway and Respiratory Function: Patent airway with normal (patient baseline) respiratory exam Cardiovascular Function: Hemodynamically Stable Hydration Status: Adequately Hydrated Nausea & Vomiting: No Nausea or Vomiting Pain: Pt. Denies Any Pain Peripheral Nerve Block: Patient did not receive a nerve block
== END 2021-05-16 12:18 | disposition home or self-care (01) ==
PROVIDERS: PCP Emergency Medicine; Visit Provider Ophthalmology
PROC: (CPT 66984; principal; 2021-05-16 12:30)
DX: H25.12 Age-related nuclear cataract, left eye (principal); J44.9 Chronic obstructive pulmonary disease, unspecified; K21.9 Gastro-esophageal reflux disease without esophagitis
CPT/HCPCS: 66984; V2632

== ENCOUNTER 2021-06-02 06:59 | Day surgery (SDC) | payer MEDICARE, BC, SELFPAY ==
[2021-06-02 07:12] VITALS: BP 130/69; PULSE 78; RESP 16; TEMP 36.4; O2SAT 97
[2021-06-02] MEDS: Tropicam./Phenyleph. (1/2.5%) 5 ML BTL OD ×3 (07:20→07:30)
--- NOTE | 2021-06-02 07:28 | W.ANESPRE ---
General Info Date of Service Date Performed: 06/02/21 Height: 5 ft 7 in Weight: 82.2 kg Body Mass Index (BMI): 28.3 Surgical Procedure: Operation Date: 06/02/21 08:40 Proposed Procedures Side Surgeon p Cataract Extraction with IOL Implant Right Gato Santos MD Meds Allergies and Home Medications Allergies Allergy/AdvReac Type Severity Reaction Status Date / Time cyclobenzaprine Allergy Mild SKIN RASH Verified 06/02/21 07:05 hydrocodone Allergy SKIN RASH Verified 06/02/21 07:05 Ibkpmgk-Ztn-Ezc Reductase AdvReac Mild Verified 06/02/21 07:05 Inhibitor doxycycline AdvReac FACIAL Verified 06/02/21 07:05 REDNESS meperidine AdvReac HANGOVER Verified 06/02/21 07:05 FEELING Home Medication Medication Instructions Recorded aspirin [Aspir-81] 2 tab PO DAILY 12/06/15 albuterol sulfate 2 inh IH QID PRN #1 each 05/25/20 clopidogrel 75 mg tablet 75 mg PO DAILY #90 tab-cap 06/14/20 atorvastatin 40 mg tablet 40 mg PO DAILY #90 tab-cap 07/24/20 umeclidinium 62.5 mcg/actuation 1 inh INHALATION DAILY #30 ea 01/14/21 blister powder for inhalation pantoprazole 40 mg tablet,delayed 40 mg PO DAILY #90 tab 03/21/21 release sertraline 50 mg tablet 50 mg PO DAILY #90 tab-cap 04/04/21 ferrous sulfate [iron] 325 mg PO DAILY 05/16/21 Current Visit Medications: Current Medications Generic Name Dose Route Start Last Admin Trade Name Freq PRN Reason Stop Dose Admin Acetaminophen 1,000 mg 06/02/21 06:00 Acetaminophen 500 Mg Tab PO Q4H PRN PRN Miscellaneous Medication 0 ml 06/02/21 06:00 Prednisolone 1%, Moxifloxacin 0.5%, Nepafenac 0.1% 5ml Btl OD DIRECTED FOR[facility] Miscellaneous Medication 0 ml 06/02/21 06:00 06/02/21 07:25 Tropicam./Phenyleph. (1/2.5%) 5 Ml Btl OD 1 drp DIRECTED [facility] Administration Tetracaine HCl 0 ml 06/02/21 06:00 Tetracaine 0.5% 4 Ml Btl OD DIRECTED [facility] PFSH Active Problems Active Problems: Problem Status Onset Code Cortical cataract of right eye H26.9 Nuclear sclerotic cataract of right eye H25.11 Squamous cell carcinoma Inclusion cyst L72.0 Lumbar radiculopathy, right M54.16 Epistaxis R04.0 Epistaxis, recurrent R04.0 Chronic SI joint pain M53.3, G89.29 Elevated white blood cell count, unspecified D72.829 Goals of care, counseling/discussion Z71.89 Chewing tobacco nicotine dependence F17.220 History of alcohol abuse F10.11 Palliative care patient Z51.5 Nuclear sclerotic cataract of left eye H25.12 Cortical cataract of left eye H26.9 Community acquired pneumonia J18.9 Breath shortness R06.02 Sciatica neuralgia M54.30 Copy of advanced directive obtained Z78.9 CAP (community acquired pneumonia) J18.9 Bursitis of right shoulder M75.51 Impingement syndrome of right shoulder M75.41 Cervical neuropathy G54.2 Tendonitis of long head of biceps brachii of right shoulder M75.21 Sprain of right shoulder S43.401A Fall W19.XXXA Actinic keratosis L57.0 Alcohol abuse F10.10 Chest pain 09/09/04 R07.9 Fatigue R53.83 History of appendectomy Z90.49 History of arthroscopy of knee Z98.890 Indigestion K30 Pancreatitis 09/09/96 K85.90 Polyp of colon 11/20/11 K63.5 Right inguinal hernia 02/20/14 K40.90 History of back surgery 05/02/14 Z98.890 Tubular adenoma of colon 09/17/17 D12.6 Smoker F17.200 Right rotator cuff tear 05/02/14 M75.101 Leukocytosis 10/31/14 D72.829 GERD (gastroesophageal reflux disease) K21.9 Deviated nasal septum J34.2 Depressive disorder F32.9 Dental caries K02.9 Cerebrovascular accident (CVA) due to embolism of carotid artery 01/10/16 I63.139 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 Anxiety about health 02/27/15 F41.8 Vertebral artery stenosis I65.09 Hyperlipidemia E78.5 COPD (chronic obstructive pulmonary disease) J44.9 Carotid stenosis, bilateral I65.23 Medical History Medical History CAD (coronary artery disease) Carotid stenosis, bilateral 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 dependence not interested in quitting Chronic SI joint pain COPD (chronic obstructive pulmonary disease) Depressive disorder Elevated white blood cell count, unspecified Foreign body of left hand GERD (gastroesophageal reflux disease) Goals of care, counseling/discussion History of alcohol abuse sober since 1997 History of CVA (cerebrovascular accident) 2014 Hyperlipidemia Palliative care patient Right inguinal hernia (02/20/14) Right rotator cuff tear (05/02/14) Squamous cell carcinoma Left middle finger Excision and biopsy DOS: 05/07/2021 Tubular adenoma of colon (09/17/17) Vertebral artery stenosis Surgical History Surgical History Appendectomy (~1954) Arthroplasty of knee LEFT Carotid endarterectomy 2016 Colonoscopy - MAC (09/17/17) DR. CHUCK JIMENEZ; TUBULAR ADENOMA History of back surgery (05/02/14) Inclusion cyst LMF S/P Excision: 05/07/2021 Biopsy was positive for squamous cell carcinoma Tobacco Smoking/Tobacco Use Status: Current every day Tobacco Type: smokeless tobacco Tobacco: How many years used: 65 Smokeless tobacco user: chewing tobacco Quit Status: not considering quitting Counseling given: counseling >3 minutes Alcohol Alcohol Intake: former Year quit: 1997 Counseling given: Yes Substance Use Substance use: Never Substance use type: does not use Details: quit smoking 2019. Still chews daily. Vital Signs and Lab Results Vital Signs Most Recent Vital Signs in EMR: Most Recent Vital Signs Temp Pulse Resp BP Pulse Ox 36.4 C L 78 16 130/69 97 06/02/21 07:12 06/02/21 07:12 06/02/21 07:12 06/02/21 07:12 06/02/21 07:12 Lab Results Blood Type / Crossmatch: No Data to Display Complete Blood Count: No Data to Display Complete Metabolic Panel: No Data to Display Liver Function Panel: No Data to Display Coagulation Panel: No Data to Display Cardiac Panel: No Data to Display Arterial Blood Gas: No Data to Display Venous Blood Gas: No Data to Display Pancreas Panel: No Data to Display Thyroid Panel: No Data to Display Infectious Disease: No Data to Display Blood Cultures: No Data to Display Toxicology Panel: No Data to Display Imaging and Studies Imaging and Studies EKG Summary: DATE/TIME OF SERVICE: 10/14/20 HR:93 bpm Conclusion Sinus rhythm...normal P axis, V-rate 60- 99 Stress Test Summary: Date of Exam: 07/10/13 EJECTION FRACTION: 62% GATED WALL MOTION: Small to moderate size, mild to moderate intensity, fixed inferoapical defect. CONCLUSION: Negative for ischemia. Echocardiogram Summary: Date of study: 12/11/2015 Summary: 1. Left ventricle: The cavity size was normal. Wall thickness was normal. Systolic function was normal. The estimated ejection fraction was 60-65%. Wall motion was normal; there were no regional wall motion abnormalities. 2. Mitral valve: Mild regurgitation. 3. Right ventricle: The cavity size was normal. Wall thickness was normal. Systolic function was normal. 4. Right atrium: The atrium was mildly dilated. 5. Atrial septum: No defect or patent foramen ovale was identified. 6. Tricuspid valve: Mild-moderate regurgitation. 7. Pulmonary arteries: Pulmonary systolic pressure was in the range of 15mm Hg to 25mm Hg. 8. Inferior vena cava: The vessel was normal in size; the respirophasic diameter changes were in the normal range (greater than or equal to 50%); findings are consistent with normal central venous pressure. Anesthesia Assessment and Plan Anesthesia History Personal History: No History of Anesthesia Complications Family History: No Family History of Anesthesia Complications Exercise Tolerance Exercise Tolerance: Metabolic Equivalents<4 Pertinent Negatives Pertinent Negatives: No Symptoms of GERD Cardiac & Pulmonary Exam Cardiac Exam: Normal S1/S2 Heart Sounds Pulmonary Exam: Clear Bilateral Breath Sounds Cardiac and Pulmonary Comment:: Loose non-productive cough Airway Exam Known Difficult Airway: No Mallampati Class: 2 Mouth Opening: Normal (> 3cm) Thyromental Distance: Greater than 3 cm Neck Range of Motion: Full ROM Neck Circumference: Normal Teeth Condition: Removable Dentures/Plates Upper and Removable Dentures/Plates Lower ASA Classification ASA Score: ASA 3 Emergency Case?: No NPO Status NPO Status: NPO Clears >2 hours, Solids >8 hours Anesthesia Plan Resuscitation Status: Full Code Anesthesia Technique: MAC Anesthesia Airway Planned: Natural Airway Monitors Used: Standard Monitors
[2021-06-02 07:37] VITALS: BMI 28.3
[2021-06-02] MEDS: Tetracaine 0.5% 4 ML BTL OD (08:26)
[2021-06-02] MEDS: Balanced Salt Soln.-PLUS 500 ML BAG (08:26)
[2021-06-02] MEDS: Lidocaine 1% Pres-Free 5 ML VIAL (08:27)
[2021-06-02] MEDS: Duovisc Viscoelastic System EACH 1 EACH (08:27)
[2021-06-02] MEDS: Lidocaine 2% Jelly 6 ML SYR (08:28)
[2021-06-02] MEDS: Povidone-Iodine Ophth 30 ML BTL (08:30)
--- NOTE | 2021-06-02 08:45 | W.PM.DSUDISC ---
Discharge Plan Disposition Patient Disposition: HOME Condition: Good Discharge Details Attending Provider: Gato Santos Primary Care Provider: Demetris Multani Home Meds and New Rx's Prescriptions: No Action clopidogrel 75 mg tablet 75 mg PO DAILY Qty: 90 RF: 3 atorvastatin 40 mg tablet 40 mg PO DAILY Qty: 90 RF: 3 Incruse Ellipta 62.5 mcg/actuation blister with device 1 inh inhalation DAILY Qty: 30 RF: 6 pantoprazole 40 mg tablet,delayed release (DR/EC) 40 mg PO DAILY Qty: 90 RF: 2 sertraline 50 mg tablet 50 mg PO DAILY Qty: 90 RF: 3 aspirin [Aspir-81] 81 MG tablet,delayed release (DR/EC) 2 tab PO DAILY RF: 0 ferrous sulfate [iron] 325 mg (65 mg iron) Tablet 325 mg PO DAILY RF: 0 albuterol sulfate 90 mcg/actuation aerosol powdr breath activated 2 inh IH QID PRNQty: 1 RF: 0 Discharge Instructions Stand Alone Forms: Post-op Topical Cataract, Yovani Seymour (DSU) Discharge Orders Discharge Orders: Discharge Order (Routine); Ordered 06/02/21 Ordered By: Gato Santos DS: Diagnosis Discharge Diagnosis (1) Cortical cataract of right eye: Status: Resolved (2) Nuclear sclerotic cataract of right eye: Status: Resolved
--- NOTE | 2021-06-02 08:46 | W.PM.OP ---
Date of service: 06/02/21 Time of Service: 08:46 Operative Note Operative Note DATE OF PROCEDURE: 06/02/21 PRE-OP DIAGNOSIS: Nuclear/cortical cataract, right eye POST-OP DIAGNOSIS: same PROCEDURE: Cataract extraction using phacoemulsification with intraocular lens implant, right eye SURGEON: Gato Santos ANESTHESIA TYPE: Local By Surgeon and MAC Refer to Anesthesia Record ESTIMATED BLOOD LOSS: 0 PATHOLOGY: none sent COMPLICATIONS: None Patient was transported to: same day Patient's condition: stable Implants: Manfred & Manfred/JAKE Tecnis [id number] Indications: Progressive visual loss due to cataract, right eye Procedure Description: CATARACT SURGERY OPERATIVE REPORT PREOPERATIVE DIAGNOSIS: 1. Nuclear/cortical cataract, right eye POSTOPERATIVE DIAGNOSIS: Same OPERATION: 1. Cataract extraction using phacoemulsification with posterior chamber intraocular lens implant, right eye. IOL: IOL Milk Pickup Driver/Model: Manfred & Manfred / JAKE Tecnis [id number] IOL Power: + 22.5 diopters IOL Serial Number: [id number] Optic Diameter: 6.0mm Haptic/Overall Diameter: 13.0mm PHACO INFO: Lloyd Where [employer] Vision System with OZil and Active Fluidics Cumulative Dispersed Energy (CDE): 6.73 seconds SURGEON: Gato Santos MD, JULIO CESRA ANESTHESIA: Monitored Anesthesia Care (MAC), with local sub-tenon's anesthetic infiltration COMPLICATIONS: None SPECIMENS: None INDICATIONS FOR PROCEDURE: The patient is a 75-year-old gentleman with history of diminished visual acuity in both eyes secondary to the development of bilateral nuclear and cortical cataract. He is significantly symptomatic that he desires cataract surgery and attempt to improve and maximize his vision. He has already undergone cataract surgery in the left eye and is doing well postoperatively. He now presents for cataract surgery in the right eye. PROCEDURE: The correct surgical eye was identified and marked as the right eye and the pupil was dilated in the preoperative area using mydriatics and cycloplegics. The dilated pupil size was 6.5 mm. He elected to proceed without oral sedation. The patient was brought to the operating room where cardiopulmonary monitoring was instituted and surgical time-out was performed, confirming the correct operative eye and IOL power. Topical anesthesia was administered and ophthalmic povidone-iodine 5% was instilled into the conjunctival fornices. Lidocaine gel was applied to the cornea and the caridad-ocular area was prepped with Betadine 10% solution and draped in the usual sterile fashion for intraocular surgery, including an aperture drape. A Tegaderm transparent film dressing was cut in half and used to cover the lashes and lid margins. Care was taken to sequester the lashes and lid margins under the Tegaderm dressing. A lid speculum was placed between the lids of the operative eye and the Avniash-Axel operating microscope was maneuvered into position. Gladys scissors were then used to make a conjunctival buttonhole approximately 6mm posterior to the limbus in the inferonasal quadrant. Blunt dissection was carried out to expose bare sclera, and a blunt-tipped sub-tenon?s anesthesia cannula was introduced and passed posteriorly along the globe where non-preserved plain lidocaine was injected into posterior sub-Tenon?s space. A sideport knife was used to make a paracentesis port inferotemporally. Intraocular phenylephrine/lidocaine was injected into the anterior chamber. The anterior chamber was filled with viscoelastic. A 2.4mm keratome knife was used to create a half-thickness groove at the limbus and then to construct a three-plane near-clear corneal tunnel extending 2.0mm into clear cornea superiortemporally. A flap was raised on the anterior capsule and capsulorhexis forceps were used to complete a continuous curvilinear capsulorhexis of 5.0 mm. Balanced salt solution was then used to perform cortical cleaving hydrodissection and nuclear hydrodelineation until the lens could be freely rotated within the capsular bag. The lens nucleus was then disassembled and removed within the capsular bag and iris plane using phacoemulsification. Residual cortical material was removed using the I/A handpiece. The posterior capsule was carefully polished to remove as much residual lens epithelial cells as safely possible. The capsular bag was then inflated and the anterior chamber deepened with viscoelastic. The lens implant described above was inserted into the capsular bag using the JAKE [place] Injector. A Kuglen hook was used to dial the IOL into position. Residual viscoelastic was then removed first from posterior to the IOL, then from the anterior chamber using the I/A handpiece. The lens implant was noted to center nicely within the capsular bag. The incisions were stromally hydrated, and the anterior chamber was reformed using BSS. Then 0.5cc of moxifloxacin 1.0mg/ml were injected into the capsular bag and anterior chamber. The incisions were checked with a Weck spear and found to be secure. Several drops of ophthalmic povidone-iodine 5% were then applied to the eye followed by two drops of Imprimis combination prednisolone/moxifloxacin/nepafenac solution. The drapes were removed and a clear plastic protective eye shield was placed over the eye. The patient was then returned to Same Day Surgery in stable condition.
[2021-06-02 08:56] VITALS: BP 129/93; PULSE 98; RESP 16; TEMP 36.5; O2SAT 98
--- NOTE | 2021-06-02 09:00 | W.ANESPOSTOP ---
Postoperative Evaluation Date, Time and Location Date Performed: 06/02/21 Time Performed: 08:54 Patient Location: Day Surgery Unit Vital Signs Most Recent Imported Vital Signs: Most Recent Vital Signs Temp Pulse Resp BP Pulse Ox 36.5 C 98 H 16 129/93 H 98 06/02/21 08:56 06/02/21 08:56 06/02/21 08:56 06/02/21 08:56 06/02/21 08:56 Pain Score Most Recent Pain Score: Most Recent Pain Score Pain Level 0 06/02/21 08:56 Assessment Mental Status: Awake (Alert & Oriented to Patient Baseline) Airway and Respiratory Function: Patent airway with normal (patient baseline) respiratory exam Cardiovascular Function: Hemodynamically Stable Hydration Status: Adequately Hydrated Nausea & Vomiting: No Nausea or Vomiting Pain: Pt. Denies Any Pain Peripheral Nerve Block: Patient did not receive a nerve block
== END 2021-06-02 08:45 | disposition home or self-care (01) ==
PROVIDERS: PCP Emergency Medicine; Visit Provider Ophthalmology
PROC: (CPT 66984; principal; 2021-06-02 08:30)
DX: H25.11 Age-related nuclear cataract, right eye (principal); J44.9 Chronic obstructive pulmonary disease, unspecified; I25.10 Atherosclerotic heart disease of native coronary artery without angina pectoris
CPT/HCPCS: 66984; V2632

== ENCOUNTER 2021-06-12 12:04 | Outpatient (CLI) | payer MEDICARE, BC, SELFPAY ==
[2021-06-12] MEDS: Inhaler, Assist Device 1 EACH MC (14:01)
[2021-06-12] MEDS: Albuterol HFA 18 GM 200 PUFF INH IH (14:01)
--- NOTE | 2021-06-13 12:47 | W.PFT ---
Date of service: 06/12/21 Time of Service: 13:08 Pulmonary Function Test Result Requesting Provider Deshawn Multani Indications: Worsening COPD Interpretation Spirometry: There is no airflow limitation. There is no bronchodilator response. There is some evidence of airway obstruction as seen on the flow volume loop as well as the volume-time curves. Impression Absolute airflow limitation however there is evidence of airflow obstruction on the flow volume loop as well as the volume-time curve. Note: As compared to spirometry completed on 03/04/2010 there has been a reduction in the FEV1 and FVC however it is within normal range as to be expected from aging. Clinical Correlation therefore is recommended.
== END 2021-06-12 12:05 | disposition home or self-care (01) ==
LOC: RT 12:31
PROVIDERS: PCP Emergency Medicine; Visit Provider Emergency Medicine
DX: J44.9 Chronic obstructive pulmonary disease, unspecified (principal)
CPT/HCPCS: 94060

== ENCOUNTER 2021-07-24 19:41 | Outpatient (REF) | payer MEDICARE, BC, SELFPAY ==
[2021-07-24 18:52] LABS: Abs Immature Grans 0.03 10^3/uL (0.0-0.06); Absolute Basophil Count 0.07 10^3/uL (0.0-0.2); Absolute Eosinophil Count 0.16 10^3/uL (0.0-0.7); Absolute Lymphocyte Count 2.51 10^3/uL (1.2-3.4); Absolute Monocyte Count 0.45 10^3/uL (0.1-0.8); Absolute Neutrophil Count 6.71 10^3/uL (1.2-6.7); Basophils % 0.7; Eosinophils % 1.6; HCT 40.2 % (40.0-50.0); HGB 13.2 g/dL (13.5-17.5); Immature Grans % 0.3; Lymphocytes % 25.3; MCHC 32.8 % (32.0-36.0); MCV 91.4 fL (80-95); MPV 9.7 fL (8.0-11.0); Monocytes % 4.5; Neutrophils % 67.6; Nucleated RBC 0 %; Platelet Count 319 10^3/uL (130-400); RDW 15.5 % (11.8-14.1); RDW-SD 51.8 fL; WBC 9.93 10^3/uL (4.4-10.8)
[2021-07-24 18:56] LABS: Iron 91 ug/dL (65-175); Total Iron Binding Capacity 342 ug/dL (250-450); Transferrin Sat 27 % (20-55)
[2021-07-24 18:59] LABS: Calculated LDL 91 mg/dL (<100); Cholesterol 161 mg/dL (<200); HDL Cholesterol 50 mg/dL (40-60); Triglyceride 104 mg/dL (<150)
== END 2021-07-24 19:42 | disposition home or self-care (01) ==
LOC: LBN 19:41
PROVIDERS: PCP Emergency Medicine; Visit Provider Emergency Medicine
DX: I65.09 Occlusion and stenosis of unspecified vertebral artery; D12.6 Benign neoplasm of colon, unspecified
CPT/HCPCS: 80061; 83540; 83550; 85025

== ENCOUNTER 2021-11-26 11:07 | Outpatient (CLI) | payer MEDICARE, BC, SELFPAY ==
--- NOTE | 2021-11-26 11:10 | DI.RAD_ITS ---
Exam(s) XR CHEST 2V PA LATERAL EXAM: XR CHEST 2V PA LATERAL CLINICAL HISTORY: SOB, R06.02. Not PUI TECHNIQUE: 2D digital imaging was performed of the chest. Two images were obtained. PA and lateral views were obtained. COMPARISON: CR XR CHEST 2V PA LATERAL from 10/29/2020 FINDINGS: MEDIASTINUM: Normal. HEART: Normal. PULMONARY VASCULATURE: Normal. LUNGS: Clear. PLEURAL SPACE: No pleural effusion or pneumothorax. BONE:Within normal limits for the patient's age. OTHER FINDINGS:Normal. IMPRESSION: No acute pulmonary findings. DATA REPOSITORY: RADIATION DOSE DELIVERED:
== END 2021-11-26 11:27 ==
PROVIDERS: PCP Family Medicine; Visit Provider Emergency Medicine
DX: R06.02 Shortness of breath (principal)
CPT/HCPCS: 71046

== ENCOUNTER 2021-11-28 03:57 | Outpatient (CLI) | payer MEDICARE, BC, SELFPAY ==
[2021-11-28 12:08] LABS: Abs Immature Grans 0.02 10^3/uL (0.0-0.06); Absolute Basophil Count 0.04 10^3/uL (0.0-0.2); Absolute Eosinophil Count 0.16 10^3/uL (0.0-0.7); Absolute Monocyte Count 0.59 10^3/uL (0.1-0.8); Absolute Neutrophil Count 4.43 10^3/uL (1.2-6.7); Basophils % 0.5; Eosinophils % 2.1; HCT 41.8 % (40.0-50.0); HGB 13.6 g/dL (13.5-17.5); Immature Grans % 0.3; Lymphocytes % 31.4; MCH 31.1 pg (27.0-33.0); MCHC 32.5 % (32.0-36.0); MCV 95.4 fL (80-95); MPV 8.9 fL (8.0-11.0); Monocytes % 7.7; Nucleated RBC 0 %; Platelet Count 257 10^3/uL (130-400); RBC 4.38 10^6/uL (4.36-5.78); RDW 14.5 % (11.8-14.1); RDW-SD 50.3 fL; WBC 7.64 10^3/uL (4.4-10.8)
[2021-11-28 12:31] LABS: Hemoglobin A1C 6.6 % (<5.7)
[2021-11-28 13:23] LABS: ALT 26 U/L (16-63); AST 27 U/L (15-37); Albumin 3.5 g/dL (3.4-5.0); Alkaline Phosphatase 78 U/L (46-116); Anion Gap 8.3 mmol/L (3-11); BUN 15 mg/dL (7-18); Bilirubin, Total 0.3 mg/dL (0.2-1.0); CO2 27.7 mmol/L (21.0-32.0); CREATININE 1.3 mg/dL (0.70-1.30); Calcium 8.5 mg/dL (8.5-10.1); Chloride 107 mmol/L (98-107); Estimated GFR 53.39 (mL/min/1.73m2); Glucose 119 mg/dL (74-106); Potassium 4.4 mmol/L (3.5-5.1); Sodium 143 mmol/L (136-145); Total Protein 7.1 g/dL (6.4-8.2)
[2021-11-28 13:32] LABS: C-Reactive Protein 3.52 mg/dL (0.0-0.3)
== END 2021-11-28 03:58 | disposition home or self-care (01) ==
LOC: LBO 03:57
PROVIDERS: PCP Family Medicine; Visit Provider Emergency Medicine
DX: E11.9 Type 2 diabetes mellitus without complications (principal); G11.9 Hereditary ataxia, unspecified; J44.0 Chronic obstructive pulmonary disease with (acute) lower respiratory infection
CPT/HCPCS: 36415; 80053; 83036; 85025; 86140

== ENCOUNTER 2021-12-25 10:39 | Outpatient (CLI) | payer MEDICARE, BC, SELFPAY ==
--- NOTE | 2021-12-25 08:30 | DI.RAD_ITS ---
Exam(s) XR HIP LT COMPLETE AP PELVIS EXAM: XR HIP LT COMPLETE AP PELVIS CLINICAL HISTORY: posterior hip pain /stiffness,? acute process or advanced oa,m25.552. TECHNIQUE: 2D digital imaging was performed. COMPARISON: CR XR HIP RT COMPLETE AP PELVIS from 01/24/2021 FINDINGS: Two views No evidence of pelvic nor hip fracture. No obvious degenerative changes in the hips and the addition al left hip lateral view reveals no joint space narrowing. Bone density is normal. Vascular calcifi cations noted in both sides of the pelvis. There is hardware at L4-5 level noted. IMPRESSION: Minimal degenerative changes in the hips. No significant change from prior radiographs of January 2021 . DATA REPOSITORY: RADIATION DOSE DELIVERED:
== END 2021-12-25 10:59 ==
PROVIDERS: PCP Family Medicine; Visit Provider Family Medicine
DX: M25.552 Pain in left hip (principal)
CPT/HCPCS: 73502

== ENCOUNTER → 2022-04-03 00:38 | Outpatient (CLI) | payer MEDICARE, BC, SELFPAY ==
--- NOTE | 2022-04-03 09:15 | DI.MRI_ITS ---
Exam(s) MR LUMBAR SPINE WO EXAM: MR LUMBAR SPINE WO CLINICAL HISTORY: LBP, LT POSTERIOR LEG PAIN, BILAT ANTERIOR THIGH PAIN S/P L4-5 FUSION 2013. TECHNIQUE: Multiplanar multisequence MRI of the Lumbar spine was performed. COMPARISON: MR MR LUMBAR SPINE WO from 02/13/2021 FINDINGS: Bones: The last intervertebral disc space is designated the L5/S1 level for the numbering purpose of this examination. The vertebral body heights are well maintained. Alignment is satisfactory. Paper Products Inspector ior spinal surgery and disc surgery is again seen at L4-L5. There is a hemangioma or fatty rest in th e L2 vertebral body. Cord: The conus tip ends at the T12 level. It is of normal size and signal intensity. T12-L1: No disc herniations or bulges are present. No central spinal canal or neural foraminal stenos is. L1-2: No disc herniations or bulges are present. No central spinal canal or neural foraminal stenosis . L2-3: There is a mild diffuse disc bulge. No central spinal canal or neural foraminal stenosis. L3-4: There is a diffuse disc bulge. Hypertrophic changes of the facets and ligamentum flavum are al so seen. This results in severe central spinal canal stenosis. There is mild right and marked left neural foraminal stenosis. L4-5: There are degenerative changes of the facets. There is a diffuse disc bulge again noted. Ther e is mild narrowing of the central spinal canal. There is marked right and moderate left neural fora kathy stenosis which appears stable. L5-S1: There is a mild diffuse disc bulge. Mild degenerative changes of the facets are seen. No sig nificant central spinal canal stenosis is present. There is mild bilateral neural foraminal stenosis . Soft tissues: The visualized SI joints and sacrum are well maintained. The paraspinal soft tissues ar e unremarkable. IMPRESSION: No significant change in appearance of the lumbar spine since 02/13/2021. Degenerative changes are mos t marked at the L3 and L4 level with resultant central spinal canal neural foraminal stenosis as desc ribed above. DATA REPOSITORY:
== END ==
PROVIDERS: PCP Nurse Practitioner Family; Visit Provider Physician Assistant Medical
DX: M47.817 Spondylosis without myelopathy or radiculopathy, lumbosacral region (principal); M48.07 Spinal stenosis, lumbosacral region; M79.652 Pain in left thigh; M79.651 Pain in right thigh; Z98.1 Arthrodesis status
CPT/HCPCS: 72148

== ENCOUNTER 2022-12-16 11:18 | Outpatient (CLI) | payer MEDICARE, BC, SELFPAY ==
[2022-12-16 12:27] LABS: Abs Immature Grans 0.03 10^3/uL (0.0-0.06); Absolute Eosinophil Count 0.25 10^3/uL (0.0-0.7); Absolute Lymphocyte Count 2.45 10^3/uL (1.2-3.4); Absolute Monocyte Count 0.54 10^3/uL (0.1-0.8); Absolute Neutrophil Count 6.19 10^3/uL (1.2-6.7); Eosinophils % 2.6; HCT 39.6 % (40.0-50.0); HGB 13.8 g/dL (13.5-17.5); Immature Grans % 0.3; Lymphocytes % 25.6; MCH 32.6 pg (27.0-33.0); MCHC 34.8 % (32.0-36.0); MCV 94 fL (80-95); MPV 9.4 fL (8.0-11.0); Monocytes % 5.6; Neutrophils % 64.9; Platelet Count 275 10^3/uL (130-400); RBC 4.23 10^6/uL (4.36-5.78); RDW 14.6 % (11.8-14.1); RDW-SD 49.1 fL; WBC 9.56 10^3/uL (4.4-10.8)
[2022-12-16 12:41] LABS: ALT 21 U/L (16-63); AST 22 U/L (15-37); Albumin 3.7 g/dL (3.4-5.0); Alkaline Phosphatase 87 U/L (46-116); Anion Gap 10.9 mmol/L (3-11); BUN 13 mg/dL (7-18); Bilirubin, Total 0.4 mg/dL (0.2-1.0); CO2 25.1 mmol/L (21.0-32.0); Chloride 105 mmol/L (98-107); Glucose 115 mg/dL (74-106); Potassium 4.1 mmol/L (3.5-5.1); Sodium 141 mmol/L (136-145); Total Protein 7.3 g/dL (6.4-8.2)
[2022-12-16 13:25] LABS: CREATININE 1.3 mg/dL (0.70-1.30); Estimated GFR 55.88 (mL/min/1.73m2); TSH (W/Ref FT4) 2.02 uIU/mL (0.36-3.74); Vitamin B12 310 pg/mL (193-986)
[2022-12-17 10:28] LABS: HIV-1/2 Ag & Ab Screen Negative (Negative)
[2022-12-17 11:06] LABS: Syphilis Serology (RPR) Negative (Negative)
== END 2022-12-16 11:19 | disposition home or self-care (01) ==
LOC: LOS 11:19
PROVIDERS: PCP Nurse Practitioner Family; Visit Provider Nurse Practitioner Family
DX: R41.89 Other symptoms and signs involving cognitive functions and awareness (principal); R53.83 Other fatigue; E11.9 Type 2 diabetes mellitus without complications; R39.15 Urgency of urination
CPT/HCPCS: 36415; 80053; 87389; 82607; 84443; 85025; 86592

== ENCOUNTER 2022-12-16 11:33 | Outpatient (CLI) | payer MEDICARE, BC, SELFPAY ==
--- NOTE | 2022-12-16 11:30 | RT.EKG_ITS ---
APPROVED REPORT Exam: Resting ECG Reason for Exam: fatigue Patient Location: O HR:72 bpm ECG Measurements Heart Rate 72 AXIS IN 168 P 83 QRSd 89 QRS 72 QT 367 T 75 QTc 402 Conclusion Sinus rhythm...normal P axis, V-rate 50- 99 Normal Electrocardiogram
== END 2022-12-16 11:34 | disposition home or self-care (01) ==
LOC: DI.CM 11:34
PROVIDERS: PCP Nurse Practitioner Family; Visit Provider Nurse Practitioner Family
DX: R53.83 Other fatigue (principal)
CPT/HCPCS: 36415; 80053; 87389; 93010; 82607; 84443; 85025; 86592

== ENCOUNTER 2022-12-16 12:49 | Outpatient (CLI) | payer MEDICARE, BC, SELFPAY ==
--- NOTE | 2022-12-16 12:30 | DI.CT_ITS ---
Exam(s) CT HEAD WO EXAM: CT HEAD WO CLINICAL HISTORY: acute worsening memory impairment, labs drawn toda R41.89. TECHNIQUE: Imaging Protocol: Axial computed tomography images with coronal and sagittal reformatted images were created and reviewed COMPARISON: CT CT HEAD CERVICAL SPINE WO from 12/04/2019 FINDINGS: Ventricles and Extra axial spaces: Normal in size and morphology for the patient's age. Hemorrhage: None. Cerebral parenchyma: Stable mild white matter changes of small vessel disease. Midline shift: None. Brainstem/Cerebellum: Normal. Calvarium: Normal. Visualized Paranasal sinuses/Mastoids: Clear. Soft Tissues: Unremarkable. IMPRESSION: No acute intracranial process. RADIATION DOSE DELIVERED: 768.42mGy.cm Total DLP DATA REPOSITORY: All CT scans at this facility are submitted to the National Radiology Data Registry (NRDR) Dose Index Registry (DIR) with the [employer] (ACR). RADIATION OPTIMIZATION: All CT scans at this facility use at least one of these dose optimization te chniques: automated exposure control; mA and/or kV adjustment per patient size (includes targeted exa ms where dose is matched to clinical indication); or iterative reconstruction.
--- NOTE | 2022-12-16 13:09 | DI.RAD_ITS ---
Exam(s) XR CHEST 2V PA LATERAL EXAM: XR CHEST 2V PA LATERAL CLINICAL HISTORY: cough COPD J44.0 TECHNIQUE: 2D digital imaging was performed. COMPARISON: CR XR CHEST 2V PA LATERAL from 11/26/2021 FINDINGS: HEART: Normal size. Aorta: Not dilated. PULMONARY VASCULATURE: Normal. LUNGS: Clear. PLEURAL SPACE: No pleural effusion or pneumothorax. BONE:Unremarkable for age. IMPRESSION: No acute abnormality. DATA REPOSITORY: RADIATION DOSE DELIVERED:
== END 2022-12-16 13:09 ==
LOC: DI 12:50
PROVIDERS: PCP Nurse Practitioner Family; Visit Provider Nurse Practitioner Family
DX: J44.0 Chronic obstructive pulmonary disease with (acute) lower respiratory infection (principal); R41.89 Other symptoms and signs involving cognitive functions and awareness
CPT/HCPCS: 36415; 80053; 87389; 70450; 71046; 82607; 84443; 85025; 86592

== ENCOUNTER 2022-12-16 21:27 | Outpatient (REF) | payer MEDICARE, BC, SELFPAY | END 2022-12-16 21:28 | disposition home or self-care (01) | LOC: LBN 21:27 | PROVIDERS: PCP Nurse Practitioner Family; Visit Provider Nurse Practitioner Family | DX: R39.15 Urgency of urination (principal) | CPT/HCPCS: 87086 ==

== ENCOUNTER → 2022-12-29 13:49 | Outpatient (BNVA) | payer MEDICARE, BC, SELFPAY | PROVIDERS: PCP Nurse Practitioner Family; Referring Provider Nurse Practitioner Family; Visit Provider Nurse Practitioner Adult Health | DX: R41.89 Other symptoms and signs involving cognitive functions and awareness (principal) | CPT/HCPCS: 99204 ==

== ENCOUNTER → 2023-01-04 12:36 | Outpatient (BNVA) | payer MEDICARE, BC, SELFPAY | PROVIDERS: PCP Nurse Practitioner Family; Referring Provider Nurse Practitioner Family; Visit Provider Nurse Practitioner Adult Health | DX: R41.89 Other symptoms and signs involving cognitive functions and awareness (principal) | CPT/HCPCS: 99213 ==

== ENCOUNTER → 2023-10-07 10:49 | Outpatient (BNVA) | payer MEDICARE, BC, SELFPAY | PROVIDERS: PCP Nurse Practitioner Family; Referring Provider Nurse Practitioner Family; Visit Provider Nurse Practitioner Gerontology | DX: N52.9 Male erectile dysfunction, unspecified (principal); N40.1 Benign prostatic hyperplasia with lower urinary tract symptoms; R35.1 Nocturia | CPT/HCPCS: 99215 ==

== ENCOUNTER → 2023-12-28 08:10 | Outpatient (BNVA) | payer MEDICARE, BC, SELFPAY | PROVIDERS: PCP Nurse Practitioner Family; Referring Provider Nurse Practitioner Family; Visit Provider Nurse Practitioner Gerontology | DX: N52.9 Male erectile dysfunction, unspecified (principal) | CPT/HCPCS: 99213 ==

== ENCOUNTER 2023-12-29 13:06 | Outpatient (REF) | payer MEDICARE, BC, SELFPAY ==
[2023-12-29 21:22] LABS: HCT 39.7 % (40.0-50.0); HGB 13.6 g/dL (13.5-17.5); MCH 30.8 pg (27.0-33.0); MCHC 34.3 % (32.0-36.0); MCV 90 fL (80-95); MPV 9.8 fL (8.0-11.0); Platelet Count 280 10^3/uL (130-400); RBC 4.42 10^6/uL (4.36-5.78); RDW 14.5 % (11.8-14.1); RDW-SD 46.9 fL; WBC 8.79 10^3/uL (4.4-10.8)
[2023-12-29 22:10] LABS: ALT 17 U/L (16-63); AST 24 U/L (15-37); Albumin 3.7 g/dL (3.4-5.0); Alkaline Phosphatase 84 U/L (46-116); Anion Gap 11.7 mmol/L (3-11); BUN 14 mg/dL (7-18); Bilirubin, Total 0.3 mg/dL (0.2-1.0); CO2 25.3 mmol/L (21.0-32.0); CREATININE 1.1 mg/dL (0.70-1.30); Calcium 8.8 mg/dL (8.5-10.1); Calculated LDL 88 mg/dL (<100); Chloride 107 mmol/L (98-107); Cholesterol 147 mg/dL (<200); Estimated GFR 67.86 (mL/min/1.73m2); Glucose 112 mg/dL (74-106); HDL Cholesterol 49 mg/dL (40-60); Potassium 4.1 mmol/L (3.5-5.1); Sodium 144 mmol/L (136-145); Triglyceride 52 mg/dL (<150); Vitamin B12 1184 pg/mL (193-986)
== END 2023-12-29 13:07 | disposition home or self-care (01) ==
LOC: LBN 13:06
PROVIDERS: PCP Nurse Practitioner Family; Visit Provider Nurse Practitioner Family
DX: E78.5 Hyperlipidemia, unspecified (principal); D72.829 Elevated white blood cell count, unspecified; I65.03 Occlusion and stenosis of bilateral vertebral arteries
CPT/HCPCS: 80053; 80061; 85027; 82607

== ENCOUNTER 2024-11-14 18:30 | Emergency (ER) | payer MEDICARE, BC, SELFPAY ==
[2024-11-14] VITALS (20 sets, daily range): BP systolic 129–174; BP diastolic 66–101; PULSE 71–89; RESP 14–32; TEMP 37.2; O2SAT 92–97
--- NOTE | 2024-11-14 18:30 | DI.RAD_ITS ---
Exam(s) XR CHEST 2V PA LATERAL EXAM: XR CHEST 2V PA LATERAL CLINICAL HISTORY: SOB, Cough TECHNIQUE: 2D digital imaging was performed. Two views. COMPARISON: CR XR CHEST 2V PA LATERAL from 12/16/2022 FINDINGS: HEART: Normal size. Aorta: Not dilated. PULMONARY VASCULATURE: Normal. MEDIASTINUM: Unremarkable. LUNGS: Clear. PLEURAL SPACE: No pleural effusion or pneumothorax. BONE:Unremarkable for age. SOFT TISSUES: Unremarkable. IMPRESSION: No acute abnormality. DATA REPOSITORY: RADIATION DOSE DELIVERED:
--- NOTE | 2024-11-14 18:30 | RT.EKG_ITS ---
APPROVED REPORT Exam: Resting ECG Reason for Exam: SOB Patient Location: E HR:79 bpm ECG Measurements Heart Rate 79 AXIS IA 165 P 92 QRSd 82 QRS 76 QT 366 T 76 QTc 419 Conclusion Sinus rhythm...normal P axis, V-rate 60- 99 There are no significant changes compared to prior EKG performed on 12/16/2022 at 12:36.
--- NOTE | 2024-11-14 18:53 | ED.GENADUL_ITS ---
Discharge Plan Disposition Patient Disposition: Home Condition: Stable Discharge Details Clinical Impression: Influenza A, COPD exacerbation Primary Care Provider: Joe Aguirre ED Provider: Racheal Stewart Home Meds and New Rx's Prescriptions: New oseltamivir [Tamiflu] 75 mg capsule 75 mg PO BID 5 Days Qty: 10 0RF prednisone 20 mg tablet 40 mg PO DAILY 5 Days Qty: 10 0RF Rx Instructions: Take 2 tablets by mouth once daily for the next 5 days Continued cyanocobalamin (vitamin B-12) [Vitamin B-12] 500 mcg tablet 500 mcg PO DAILY atorvastatin 40 mg tablet 40 mg PO DAILY Qty: 90 3RF albuterol sulfate 90 mcg/actuation HFA aerosol inhaler 2 puff inhalation QID Qty: 18 2RF Dulera 50-5 mcg/actuation HFA aerosol inhaler 2 puff inhalation Q12H Qty: 13 12RF sertraline 50 mg tablet 50 mg PO DAILY Qty: 90 0RF pantoprazole 40 mg tablet,delayed release (DR/EC) See Rx Instructions .ROUTE .COMPLEX Qty: 90 3RF Dose Instruction: TAKE 1 TABLET BY MOUTH DAILY Rx Instructions: TAKE 1 TABLET BY MOUTH DAILY clopidogrel 75 mg tablet 75 mg PO DAILY Qty: 90 3RF aspirin [Aspir-81] 81 MG tablet,delayed release (DR/EC) 2 tab PO DAILY ferrous sulfate [iron] 325 mg (65 mg iron) Tablet 325 mg PO DAILY Discharge Instructions Instructions: COPD Exacerbation, Adult ED, Flu, Adult ED Additional Instructions: You have tested positive for influenza A today. Please use the albuterol inhaler 1 or 2 puffs every 4-6 hours as needed for shortness of breath and wheezing. Take the prednisone daily for the next 5 days as directed. Take the Tamiflu twice a day for the next 5 days. Please take Tylenol or Ibuprofen with food every 4-6 hours as needed for pain and fever. You may also take [id number] cough and cold medicines as directed if they are helpful. Increase oral fluids. Increase vitamin C. Please consider getting a pulse oximeter to monitor your oxygenation at home [facility] get [facility] Follow up with primary care provider in 3-5 days. Return to ED sooner if any worsening shortness of breath, fever, coughing up purulent sputum any worsening, or oxygen saturation less than 90% or concerns. Referrals: Joe Aguirre NP [Primary Care Provider] - 1 week HPI General Mode of arrival: ambulatory . Date/Time Provider Initiated Documentation: 11/14/24 18:36 . Limitations to Documentation: no limitations . Information obtained by: patient, family, RN notes reviewed and old records reviewed . HPI Narrative: 79-year-old male presents to the ER with a chief complaint of increased shortness of breath, wheezing and cough for the last 2 weeks. He is here with his son who reports that he saw him on Wednesday and tried to get him to be seen at that time however patient declined, he reports that he is worse now. He does have a history of COPD is a former smoker and reports smoking recently he does have albuterol at home but he has not been using it. He also reports some chills, other past medical history include CVA, hyperlipidemia, erectile dysfunction, diabetes, and coronary artery disease does take atorvastatin and clopidogrel. History of a carotid endarterectomy. He denies any chest pain at this time denies any leg swelling. He does have some increased work of breathing, he does have short sentences expiratory wheezes noted with Rales on auscultation. He states I have a cold. Related Data Home Medications ?Medication ?Instructions ?Recorded ?Confirmed aspirin 81 mg tablet,delayed 2 tab PO DAILY 12/06/15 11/14/24 release (Aspir-) ferrous sulfate 325 mg (65 mg 325 mg PO DAILY 05/16/21 11/14/24 iron) tablet (iron) cyanocobalamin (vitamin B-12) 500 500 mcg PO DAILY 01/04/23 11/14/24 mcg tablet (Vitamin B-12) atorvastatin 40 mg tablet 40 mg PO DAILY #90 tab-caps 03/15/24 11/14/24 albuterol sulfate 90 mcg/actuation 2 puff inhalation QID #18 grams 03/24/24 11/14/24 aerosol inhaler mometasone-formoterol HFA 50 mcg-5 2 puff inhalation Q12H #13 grams 03/29/24 11/14/24 mcg/actuation aerosol inhaler (Dulera) sertraline 50 mg tablet 50 mg PO DAILY #90 tab-caps 05/15/24 11/14/24 pantoprazole 40 mg tablet,delayed See Rx Instructions .Route 10/18/24 11/14/24 release .COMPLEX #90 tabs clopidogrel 75 mg tablet 75 mg PO DAILY #90 tabs 10/26/24 11/14/24 oseltamivir 75 mg capsule (Tamiflu) 75 mg PO BID 5 days #10 caps 11/14/24 prednisone 20 mg tablet 40 mg (2 x 20 mg) PO DAILY 11/14/24 Influenza 5 days #10 tabs Previous Rx's ?Medication ?Instructions ?Recorded atorvastatin 40 mg tablet 40 mg PO DAILY #90 tab-caps 03/15/24 albuterol sulfate 90 mcg/actuation 2 puff inhalation QID #18 grams 03/24/24 aerosol inhaler mometasone-formoterol HFA 50 mcg-5 2 puff inhalation Q12H #13 grams 03/29/24 mcg/actuation aerosol inhaler (Dulera) sertraline 50 mg tablet 50 mg PO DAILY #90 tab-caps 05/15/24 pantoprazole 40 mg tablet,delayed See Rx Instructions .Route 10/18/24 release .COMPLEX #90 tabs clopidogrel 75 mg tablet 75 mg PO DAILY #90 tabs 10/26/24 oseltamivir 75 mg capsule (Tamiflu) 75 mg PO BID 5 days #10 caps 11/14/24 prednisone 20 mg tablet 40 mg (2 x 20 mg) PO DAILY 11/14/24 Influenza 5 days #10 tabs Allergies Allergy/AdvReac Type Severity Reaction Status Date / Time cyclobenzaprine Allergy Mild SKIN RASH Verified 11/14/24 18:43 hydrocodone Allergy SKIN RASH Verified 11/14/24 18:43 doxycycline AdvReac FACIAL Verified 11/14/24 18:43 REDNESS meperidine AdvReac HANGOVER Verified 11/14/24 18:43 FEELING General Stated Complaint: SOB GOOD: 3 Review of Systems All systems reviewed & are unremarkable except as noted in HPI and below Constitutional Constitutional: Reports fever(s) Cardiovascular Cardiovascular: Denies chest pain, Denies pedal edema, Denies edema, Reports dyspnea and Reports dyspnea on exertion Respiratory Respiratory: Reports chest congestion, Reports cough, Reports dyspnea, Reports dyspnea on exertion and Reports wheezing Allergic/Immunologic Allergic/Immunologic: Reports wheezing Exam Narrative Exam Narrative: Constitutional: Alert and oriented x3. Appears stated age. Normal body habitus. Head: Normocephalic, no trauma. Eyes: Pupils PERRL, Red reflex noted, EOM's intact. Eyelids symmetrical without lesions, discharge, or swelling. ENT: Bilateral TM's WNL, External ear normal to inspection, no mastoid TTP, swelling, or erythema, Nasal turbinates WNL, no nasal discharge. Normal dentition, Posterior pharynx WNL, no exudate. Chest: RRR, Normal S1, S2, distal pulses intact. Resp: Some increased work of breathing, expiratory wheezes noted bilaterally in the upper lobes, coarse rhonchi scattered. Abdomen: Soft, non-distended, Normoactive bowel sounds all 4 quads. Musculoskeletal: Normal gait, Moves all 4 extremities without difficulty. Skin: No suspicious rashes or lesions. Capillary refill less than 2 sec. Neurologic: Cranial nerves II-XII intact. Alert and oriented x 3. Motor: No deficits noted. Sensory: Intact bilaterally all 4 extremities. Hematologic/Lymphatic: No ecchymosis, no lymphadenopathy. Course Vital Signs Vital signs: Vital Signs Temperature 37.2 C 11/14/24 18:41 Pulse 84 11/14/24 18:41 Respiratory Rate 20 11/14/24 18:41 Blood Pressure 149/70 H 11/14/24 18:41 Pulse Oximetry 94 11/14/24 18:41 Temperature 37.2 C 11/14/24 18:45 Pulse 84 11/14/24 18:45 Respiratory Rate 20 11/14/24 18:45 Blood Pressure 149/70 H 11/14/24 18:45 Pulse Oximetry 94 11/14/24 18:45 Oxygen Delivery Method Room Air 11/14/24 18:45 Oxygen Flow Rate 0 11/14/24 18:45 Pain Level 0 11/14/24 18:45 Medical Decision Making 79-year-old male presents to the ER with a chief complaint of increased shortness of breath, wheezing and cough for the last 2 weeks. He is here with his son who reports that he saw him on Wednesday and tried to get him to be seen at that time however patient declined, he reports that he is worse now. He does have a history of COPD is a former smoker and reports smoking recently he does have albuterol at home but he has not been using it. He also reports some chills, other past medical history include CVA, hyperlipidemia, erectile dysfunction, diabetes, and coronary artery disease does take atorvastatin and clopidogrel. History of a carotid endarterectomy. He denies any chest pain at this time denies any leg swelling. He does have some increased work of breathing, he does have short sentences expiratory wheezes noted with Rales on auscultation. He states I have a cold. Fluvid swab ordered, EKG, chest x-ray DuoNeb and prednisone 40 mg p.o. Differential diagnose includes but not limited to viral illness, COVID, pneumonia, CAD. Patient is positive for influenza A, reevaluation he is still having some tachypnea and wheezing. Will give an additional DuoNeb here. I did order Tamiflu which he got his first dose here in the department. Will also send him home with 5 days of prednisone and an albuterol inhaler. X-ray within normal limits. Patient reevaluation he appears much more comfortable, he has been satting 94 to 96% on room air. Discharged with flu a positive and COPD exacerbation. Instructed on use on albuterol inhaler and strict return instructions. This text was generated using [employer] system, please disregard any oddities of phrase or misspellings. Medical Records Medical records reviewed: Yes I reviewed the patient's medical records. Imaging Data Radiologic Study: Imaging: X-Ray Radiologist's impression: TECHNIQUE: Imaging protocol: Radiologic exam of the chest. Views: 2 views. COMPARISON: CR XR CHEST 2V PA LATERAL 12/16/2022 12:56 PM FINDINGS: Tubes, catheters and devices: Cardiac leads superimposed over the chest. Lungs: No alveolar infiltrate. Pleural spaces: No pneumothorax. No pleural fluid collection. Heart/Mediastinum: Normal heart size. Bones/joints: Spinal degenerative changes. IMPRESSION: No active pulmonary disease Lab Data Lab results reviewed: Yes I reviewed the patient's lab results. Labs: Laboratory Tests Range/Units 11/14/24 19:16 COVID-19 Source NASOPHARYNX SARS-CoV-2 (PCR) (Negative) Negative Influenza Type A (PCR) (Negative) Positive A Influenza Type B (PCR) (Negative) Negative RSV (PCR) (Negative) Negative Quality:SDOH Health Related Social Needs: No Data to Display PFSH All Active Problems (Updated 11/14/24 @ 20:58 by Racheal Stewart NP) COPD exacerbation (Acute) Influenza A (Acute) Erectile dysfunction (Acute) COPD exacerbation (Acute) Cognitive impairment (Acute) MMSE score 24 on 3/8/23 Spinal stenosis of lumbar region (Acute) 2020, 02/2021-MRI shows severe spinal stenosis mid lumbar area, other lesions also noted 12/2021-recurrent flare with left-sided sciatica Followed by [facility] neurosurgery-Juanita Rodriguez Remote fusion of L4-L5 with [facility] neurology Diabetes (Chronic) 2020, mild, diet controlled COPD (chronic obstructive pulmonary disease) (Chronic) Squamous cell carcinoma (Acute) Left middle finger Excision and biopsy DOS: 05/07/2021 Inclusion cyst (Acute) LMF S/P Excision: 05/07/2021 Biopsy was positive for squamous cell carcinoma Lumbar radiculopathy, right (Acute) prior lumbar sx Epistaxis, recurrent (Acute) Chewing tobacco nicotine dependence (Chronic) not interested in quitting Copy of advanced directive obtained (Acute) Cervical neuropathy (Acute) Actinic keratosis (Acute) Pancreatitis (Acute 09/09/96) Right inguinal hernia (Acute 02/20/14) Tubular adenoma of colon (Acute 09/17/17) 2017 Leukocytosis (Acute 10/31/14) began 2007. Idiopathic. 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 CHUCK JIMENEZ; TUBULAR ADENOMA Carotid endarterectomy 2016 Arthroplasty of knee LEFT Appendectomy (~1954) Family History Mother , of cancer age 73 Personal history of malignant neoplasm Cancer Father , of [place] age 43 Heart disease Sister , had 2 sisters, one of lung cancer one of Alzheimer's disease Personal history of malignant neoplasm Cancer Dementia Brother , had 4 brothers, 2 have of lung cancer Heart disease Cancer Grandfather Acute ill-defined cerebrovascular disease Son Smoker Son Smoker Son No problems noted. Son No problems noted. Daughter Smoker Granddaughter , age 7 from ALL Leukemia, acute lymphoid Social History Smoking/Tobacco Use Status: Current-Occasional Tobacco: How many years used: 65 Smokeless tobacco user: chewing tobacco Quit status: not considering quitting Second Hand Exposure: Yes Smoking risk assessment performed?: Yes Alcohol Intake: former Year quit: 1997 Counseling given: Yes Drug use: Current Sobriety Substance use type: does not use Details: quit smoking 2018. Still chews daily. 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 Pets and animals: Yes Pets and animals: dog(s) Sexually active: No Do you think of yourself as: straight/heterosexual Current gender identity: male What is your relationship status?: How often do you talk on the phone with friends or family?: twice per week Do you belong to any clubs or organized social groups?: no Panel score (0-1 are the most socially isolated patients): 1 What type of physical activity do you participate in: independent ambulation Izabella/Moravian: Sikhism Special izabella needs: No Seatbelt use: never Helmet use: No Drive intox or ride w/intox wedding transportation driver: No Working smoke detector in home: Yes Fire extinguisher in home: Yes Do you feel safe at home: Yes Do you feel safe in your relationship?: Yes Additional Social history: His speech is a bit hard to follow due to his loose dentures.
[2024-11-14] MEDS: predniSONE 20 MG TAB 40 MG PO (19:11)
[2024-11-14] MEDS: Albuterol/Ipratropium 3 ML UPD VIAL UPD ×2 (19:11→20:41)
[2024-11-14 19:56] LABS: COVID-19 PCR Negative (Negative); Influenza A PCR Positive (Negative); Influenza B PCR Negative (Negative); RSV PCR Negative (Negative); Source NASOPHARYNX
[2024-11-14] MEDS: Oseltamivir 75 MG CAP PO (20:08)
[2024-11-14] MEDS: Inhaler, Assist Device 1 EACH MC (20:41)
--- NOTE | 2024-11-14 20:54 | DI.VRAD_ITS ---
PROCEDURE INFORMATION: Exam: XR Chest Exam date and time: 11/14/2024 7:42 PM Age: 79 years old Clinical indication: Cough, SOB TECHNIQUE: Imaging protocol: Radiologic exam of the chest. Views: 2 views. COMPARISON: CR XR CHEST 2V PA LATERAL 12/16/2022 12:56 PM FINDINGS: Tubes, catheters and devices: Cardiac leads superimposed over the chest. Lungs: No alveolar infiltrate. Pleural spaces: No pneumothorax. No pleural fluid collection. Heart/Mediastinum: Normal heart size. Bones/joints: Spinal degenerative changes. IMPRESSION: No active pulmonary disease. Dictated and Authenticated by: Juan Antonio Yen MD. Orderin Pat Springer MD
[2024-11-14] MEDS: Albuterol HFA 8 GM 60 PUFF INH IH (21:28)
== END 2024-11-14 21:34 | disposition home or self-care (01) ==
PROVIDERS: Emergency Provider Registered Nurse Emergency; PCP Nurse Practitioner Family
DX: J10.1 Influenza due to other identified influenza virus with other respiratory manifestations (principal); J44.1 Chronic obstructive pulmonary disease with (acute) exacerbation
CPT/HCPCS: 87637; 93005; 99285; 71046; 93010; J7512; J7620

== ENCOUNTER 2025-01-02 11:47 | Outpatient (CLI) | payer MEDICARE, BC, SELFPAY ==
--- NOTE | 2025-01-02 15:14 | DI.RAD_ITS ---
Exam(s) XR CHEST 2V PA LATERAL EXAM: XR CHEST 2V PA LATERAL CLINICAL HISTORY: dyspnea,exac of copd, j44.1. TECHNIQUE: 2D digital imaging was performed. COMPARISON: CR,XR XR CHEST 2V PA LATERAL from 11/14/2024 FINDINGS: 2 views: Heart size is normal. The mediastinum is not widened. Left lung is clear. There is asymmetric density lower right lung field, more so than previous visible on the frontal imag e; less discernible on the lateral image. There is a chance that this may just be related to gynecom astia in this elderly male patient. There are no pleural effusions. No pulmonary edema in this patient with normal heart size. IMPRESSION: Nodular density in the lower right lung field. There is possibly that this is just related to gyneco mastia. However, this appears increased from chest x-ray of November 14, 2024. Therefore cannot assu me that this is gynecomastia and follow-up chest CT scan DATA REPOSITORY: RADIATION DOSE DELIVERED:
== END 2025-01-02 12:07 ==
LOC: DI 11:48
PROVIDERS: PCP Nurse Practitioner Family; Visit Provider Nurse Practitioner Family
DX: J44.1 Chronic obstructive pulmonary disease with (acute) exacerbation (principal)
CPT/HCPCS: 36415; 80053; 80061; 85027; 71046; 83036

== ENCOUNTER 2025-01-02 13:01 | Outpatient (CLI) | payer MEDICARE, BC, SELFPAY ==
[2025-01-02 13:27] LABS: HCT 39.9 % (40.0-50.0); HGB 13.2 g/dL (13.5-17.5); MCH 30.1 pg (27.0-33.0); MCHC 33.1 % (32.0-36.0); MCV 91 fL (80-95); MPV 9.2 fL (8.0-11.0); Platelet Count 296 10^3/uL (130-400); RBC 4.39 10^6/uL (4.36-5.78); RDW 14.6 % (11.8-14.1); WBC 10.16 10^3/uL (4.4-10.8)
[2025-01-02 13:42] LABS: Hemoglobin A1C 6.4 % (<5.7)
[2025-01-02 14:53] LABS: ALT 18 U/L (16-63); AST 18 U/L (15-37); Albumin 3.5 g/dL (3.4-5.0); Alkaline Phosphatase 86 U/L (46-116); Anion Gap 5.3 mmol/L (3-11); BUN 15 mg/dL (7-18); Bilirubin, Total 0.8 mg/dL (0.2-1.0); CO2 28.7 mmol/L (21.0-32.0); CREATININE 1.2 mg/dL (0.70-1.30); Calculated LDL 94 mg/dL (<100); Chloride 105 mmol/L (98-107); Cholesterol 150 mg/dL (<200); Estimated GFR 60.75 (mL/min/1.73m2); Glucose 102 mg/dL (74-106); HDL Cholesterol 45 mg/dL (>or=40); Potassium 4.3 mmol/L (3.5-5.1); Sodium 139 mmol/L (136-145); Total Protein 7.5 g/dL (6.4-8.2); Triglyceride 59 mg/dL (<150)
== END 2025-01-02 13:02 | disposition home or self-care (01) ==
LOC: LBO 13:02
PROVIDERS: PCP Nurse Practitioner Family; Visit Provider Nurse Practitioner Family
DX: E78.5 Hyperlipidemia, unspecified (principal); E11.9 Type 2 diabetes mellitus without complications; R41.89 Other symptoms and signs involving cognitive functions and awareness; J44.1 Chronic obstructive pulmonary disease with (acute) exacerbation; Z23 Encounter for immunization
CPT/HCPCS: 36415; 80053; 80061; 85027; 83036

== ENCOUNTER 2025-01-03 14:40 | Outpatient (CLI) | payer MEDICARE, BC, SELFPAY ==
--- NOTE | 2025-01-03 14:00 | DI.CT_ITS ---
Exam(s) CT CHEST WO EXAM: CT CHEST WO CLINICAL HISTORY: f/u xray, abnl finding cxr 01/01, R93.89. TECHNIQUE: Imaging protocol: Axial computed tomography images were obtained and coronal and sagittal reformatted images were created and reviewed. Computer aided detection (CAD) was utilized. CONTRAST MATERIAL: Noncontrast CR,XR XR CHEST 2V PA LATERAL from 11/14/2024 CR XR CHEST 2V PA LATERAL from 01/02/2025 FINDINGS: Pulmonary parenchyma: No consolidation. No suspicious nodules. Interstitial changes: None. Emphysema: Mild paraseptal and centrilobular emphysema, greatest in the anterior right upper lobe. Tracheobronchial tree: Mild bronchial wall thickening in the right lower lobe no bronchiectasis . Pleura: No effusion or pneumothorax. Heart: The heart is mildly dilated. The coronary arteries show moderate to severe calcifications. Aorta: Thoracic aorta non-dilated. Mild moderate atherosclerotic changes. Lymph nodes: No enlarged lymph nodes. Bones: Degenerative changes are seen. No evidence of compression fracture. Upper abdomen: Unremarkable. Soft tissues: Unremarkable mild bilateral gynecomastia. IMPRESSION: No pulmonary findings to account for questioned abnormality on recent chest x-ray. The findings may be secondary to gynecomastia. No evidence of mask. Mild emphysematous changes. Mild right lower lobe bronchial wall thickening. RADIATION DOSE DELIVERED: 304.61mGy.cm Total DLP 304.61mGy.cm Total DLP DATA REPOSITORY: All CT scans at this facility are submitted to the National Radiology Data Registry (NRDR) Dose Index Registry (DIR) with the [employer] (ACR). RADIATION OPTIMIZATION: All CT scans at this facility use at least one of these dose optimization te chniques: automated exposure control; mA and/or kV adjustment per patient size (includes targeted exa ms where dose is matched to clinical indication); or iterative reconstruction.
== END 2025-01-03 15:00 ==
LOC: DI 14:41
PROVIDERS: PCP Nurse Practitioner Family; Visit Provider Nurse Practitioner Family
DX: R93.89 Abnormal findings on diagnostic imaging of other specified body structures (principal)
CPT/HCPCS: 71250

== ENCOUNTER 2025-08-02 08:04 | Outpatient (REF) | payer MEDICARE, BC, SELFPAY ==
--- NOTE | 2025-08-02 07:20 | SKI_PTH ---
PATIENT: Leisa Ames LOC: [facility] U#:[id number] AGE/SX: 79/M ROOM: RE08/02/[address]: Dat Barker MD : [id number] BED: DIS: 08/02/2025 SPEC #: [id number] RECD: 08/02/25 17:51 STATUS: JULIÁN RESatnos #: [id number] SOLIS: 08/02/25 07:[address]: Dat Barker DEPT: Surgical Specimen RECD BY: Nimisha Stafford ENTERED: 08/02/25 17:51 SP TYPE: ANTHONY WEBB DR: Joe Champion DNP Tissues: 1 - SKIN BIOPSY(SHAVE/PUNCH) Procedures: SKIN LEVEL 4 Comments: [id number]
== END 2025-08-02 08:05 | disposition home or self-care (01) ==
LOC: LBN 08:04
PROVIDERS: PCP Nurse Practitioner Family; Visit Provider Otolaryngology
DX: C44.321 Squamous cell carcinoma of skin of nose (principal); L98.9 Disorder of the skin and subcutaneous tissue, unspecified
CPT/HCPCS: 88305